=== PATIENT | female | born 1970 | race Two or more races ===

== ENCOUNTER 2021-12-07 14:53 | Outpatient (CLI) | payer MEDICAID | END 2021-12-07 23:59 | disposition home or self-care (01) | LOC: LAB 14:53 | PROVIDERS: ATTEND Specialist | DX: Z01.812 Encounter for preprocedural laboratory examination (principal); Z20.822 Contact with and (suspected) exposure to COVID-19 | CPT/HCPCS: C9803; U0003 ==

== ENCOUNTER 2021-12-13 05:06 | Inpatient (IN) | payer MEDICAID ==
[~2021-12-13] VITALS: Ht 157.5 cm; Wt 127.0 kg
[2021-12-13] VITALS (8 sets, daily range): BP systolic 139–155; BP diastolic 72–90
[~2021-12-13 05:06] MED LIST: ANESTHESIA TRAY IN PYXIS 1 EA TRAY MC ONE
--- NOTE | 2021-12-13 06:20 | NUR ---
RN ADMITTING NOTE PATIENT BEING ADMITTED FOR DAY SX R KNEE HIP ARTHROPLASTY WITH DR. FLORES. MRSA SWAB, URINE COLLECTED. ALL CONSENTS SIGNED. SX CHECKLIST DONE. PATIENT VICK TDOWN TO OR AT THISS TIME. BELONGINGS AT BEDSIDE.
[2021-12-13] MEDS ORDERED: ROCURONIUM BROMIDE 50 MG/5 ML ONE ×2 (06:31→07:40)
[2021-12-13] MEDS ORDERED: BUPIVACAINE 0.5 % PF 150 MG/30 ML VIAL ONE ×2 (06:31→06:34)
[2021-12-13] MEDS ORDERED: HYDROMORPHONE INJ 2 MG/ML DISP.SYRIN ONE (06:31)
[2021-12-13] MEDS ORDERED: POLYMYXIN B SULFATE 500,000 UNITS ONE (06:34)
[2021-12-13] MEDS ORDERED: TRANEXAMIC ACID 3,000 MG in SODIUM CHLORIDE IRRIG SOLUTION 70 ML IR ONE (07:00)
[2021-12-13] MEDS ORDERED: FENTANYL PF 100MCG/2ML AMPUL ONE (09:19)
[2021-12-13] MEDS ORDERED: DRONABINOL (2.5 MG) 2.5 MG CAPSULE PO ONE (09:33)
[2021-12-13] MEDS ORDERED: HYDROMORPHONE 1 MG/1 ML DISP.SYRIN ONE ×2 (09:44→10:03)
[2021-12-13] MEDS ORDERED: hydrALAZINE HCL IV 20 MG VIAL ONE ×2 (09:52→10:37)
[2021-12-13] MEDS ORDERED: ONDANSETRON HCL/PF 4 MG/2 ML VIAL IVP PRN (10:00)
[2021-12-13] MEDS ORDERED: DRONABINOL (2.5 MG) 2.5 MG CAPSULE PO SCH ×2 (10:00)
[2021-12-13] MEDS ORDERED: diphenhydrAMINE HCL 25 MG CAPSULE PO PRN (10:00)
[2021-12-13] MEDS ORDERED: ZOLPIDEM TARTRATE 5 MG TABLET PO PRN (10:00)
[2021-12-13] MEDS ORDERED: MAG HYDROX/AL HYDROX/SIMETH 30 ML UDC PO PRN (10:00)
[2021-12-13] MEDS ORDERED: BISACODYL SUPP (10 MG) 10 MG/SUPP.RECT SUPP.RECT RC PRN (10:00)
[2021-12-13] MEDS ORDERED: SENNOSIDES 8.6 MG TABLET PO PRN (10:00)
[2021-12-13] MEDS: HYDROMORPHONE 1 MG/1 ML DISP.SYRIN SQ PRN ×2 (11:16→22:57)
--- NOTE | 2021-12-13 11:30 | NUR ---
RN NOTES PATIENT BACK FROM RECOVERY ROOM. S/P RIGHT TOTAL KNEE ARTHROPLASTY. RIGHT KNEE/LEGNOTED WITH DRESSING C/D/I. AND WITH IMMOBILIZER. VITAL SIGNS TAKEN AND RECORDED. WITH C/O PAIN, DILAUDID GIVEN ORDERED. WILL CONTINUE TO MONITOR PATIENT.
[2021-12-13] MEDS: oxyCODONE IR immediate release 5 MG PO PRN (11:56)
[2021-12-13] MEDS ORDERED: KEY,NONCONTROL,TO KEEP IN PYXI 1 EA MC ONE (12:41)
[2021-12-13] MEDS: HYDROMORPHONE MDV 30 MG in IV NS 0.9% 15 ML, PCA TOTAL VOLUME 1 BAG IV PRN ×3 (13:43)
[2021-12-13] MEDS ORDERED: FAMO40TA7 PO (13:50)
[2021-12-13] MEDS ORDERED: CLON0.1T PO (13:50)
[2021-12-13] MEDS ORDERED: HYDR100T27 PO (13:50)
[2021-12-13] MEDS ORDERED: METO200T49 PO (13:50)
[2021-12-13] MEDS ORDERED: OXYC1TAB12 PO (13:50)
[2021-12-13] MEDS ORDERED: GABA300C PO (13:50)
[2021-12-13] MEDS ORDERED: ATOR10TA PO (13:58)
[2021-12-13] MEDS: ANCEF 1 GM/50 ML D5W IV SCH ×4 (16:41→23:07)
[2021-12-13] MEDS: DOCUSATE SODIUM 100 MG CAPSULE PO SCH (16:47)
--- NOTE | 2021-12-13 17:45 | NUR ---
RN NOTES PATIENT C/O UNABLE TO URINATE. BLADDER SCAN DONE, NOTED WITH >480ML URINE. MADE AWARE, WITH ORDER TO INSERT F/C FOR URINARY RETENTION. F/C INSERTED, PROCEDURE TOLERATED WELL. WAS ABLE TO REMOVE 500ML URINE OUTPUT.
--- NOTE | 2021-12-13 18:39 | NUR ---
RN CLOSING NOTES PATIENT RESTING IN BED. A/O X4, NO SIGNS OF ACUTE DISTRESS NOTED. STABLE ON ROOM AIR, SPO2 @94%, NO SOB NOTED, BREATHING EVEN AND UNLABORED. IV ACCESS ON LEFT HAND INTACT WITH D5 1/2 NS @125ML/HR RUNNING. ON INSOLE TOE SNIPPING MACHINE OPERATOR PUMP OF HYDROMORPHONE, PER PATIENT PAIN IS BETTER NOW. F/C INTACT DRAINING CLEAR YELLOW URINE. SAFETY MEASURE MAINTAINED. BED IN LOWEST AND LOCKED POSITION, SR UP X3, CALL LIGHT PLACED WITHIN EASY REACH. WILL ENDORSE TO NEXT SHIFT.
--- NOTE | 2021-12-13 19:15 | NUR ---
MS RN OPENING NOTES: RECEIVED PATIENT IN BED, AWAKE, A/O X4. AT THE BEDSIDE. NO S/S OF DISTRESS NOTED. NO COMPLAIN OF PAIN. CALL LIGHT WITHIN REACH. BED ALARM ON. BED IN LOWEST AND LOCKED POSITION. WITH HENDERSON CATHETER INTACT. WITH RIGHT KNEE IMMOBILIZER ON. POST OP DRESSING IS CLEAN, DRY AND INTACT. WITH GOOD CMS ON THE RIGHT EXTREMITY. TOLD RT FOR THE INCENTIVE SPIROMETER. WITH HVAC MANAGER NO CONTINUOUS, 0.3MG, 12 MINS LOCKOUT INTERVAL, 6MG 4 HOUR LIMIT.
[2021-12-13] MEDS: DRONABINOL (2.5 MG) 2.5 MG CAPSULE PO SCH (21:00)
[2021-12-13] MEDS ORDERED: FAMOTIDINE (20 MG) 20 MG TABLET PO SCH (21:00)
--- NOTE | 2021-12-13 21:00 | NUR ---
encouraged the patient to do the IS, and needs to do it q hour while awake, patient verbalized understanding.
[2021-12-13] MEDS: IV D5/0.45 NACL 1,000 ML IV PRN (21:27)
[2021-12-14] VITALS: BP 165/88
[2021-12-14] MEDS: oxyCODONE IR immediate release 5 MG PO PRN ×3 (01:37→17:55)
[2021-12-14] MEDS: HYDROMORPHONE 1 MG/1 ML DISP.SYRIN SQ PRN ×2 (02:49→08:35)
[2021-12-14] MEDS: IV D5/0.45 NACL 1,000 ML IV PRN ×2 (05:48→18:00)
[2021-12-14] MEDS: ASPIRIN 325 MG TABLET PO SCH (05:48)
[2021-12-14] MEDS ORDERED: RIVAROXABAN 10 MG TABLET PO SCH (06:00)
--- NOTE | 2021-12-14 06:04 | NUR ---
MS RN CLOSING NOTES: PATIENT IN BED, ASLEEP, EASILY AROUSABLE. NO S/S OF DISTRESS NOTED. STILL ON LINTER TENDER WITH SAME SETTING ORDERED. PAIN IS BEING MANAGED WELL THROUGHOUT THE SHIFT. CALL LIGHT WITHIN REACH. BED ALARM ON. BED IN LOWEST AND LOCKED POSITION. WITH RIGHT KNEE IMMOBILIZER ON. INCENTIVE SPIROMETER WAS INSTRUCTED BY THE RT LAST NIGHT, REINFORCED. REMINDED PATIENT TO DO IT Q 1HOUR WHILE AWAKE, PATIENT VERBALIZED UNDERSTANDING.
--- NOTE | 2021-12-14 07:30 | NUR ---
MS RN OPENING NOTES: RECEIVED PATIENT IN BED, AWAKE, A/O x 4. PATIENT IS ON ROOM AIR AND NO S/S OF SOB OR DISTRESS NOTED. IV ACCESS IN LEFT AC 20G PATENT AND FLUSHING WELL. STILL ON HIGH SCHOOL SPORTS COACH WITH SAME SETTING ORDERED. CALL LIGHT WITHIN REACH. BED ALARM ON. BED IN LOWEST AND LOCKED POSITION. RIGHT KNEE DRESSING, DRY AND INTACT WITH RIGHT KNEE IMMOBILIZER ON. WILL CONTINUE TO MONITOR FOR MARC.
[2021-12-14 08:00] VITALS: BP 191/91
[2021-12-14] MEDS: hydrALAZINE HCL 50 MG TABLET PO SCH ×3 (08:31→17:58)
[2021-12-14] MEDS: DOCUSATE SODIUM 100 MG CAPSULE PO SCH ×2 (08:33→18:00)
[2021-12-14] MEDS: FAMOTIDINE (20 MG) 20 MG TABLET PO SCH (08:33)
[2021-12-14] MEDS: GABAPENTIN 300 MG CAPSULE PO SCH ×3 (08:34→18:00)
[2021-12-14] MEDS: CLONIDINE HCL 0.1 MG TABLET PO SCH ×3 (08:34→17:58)
[2021-12-14] MEDS: METOPROLOL SUCCINATE 50 MG TAB.SR.24H PO SCH (08:34)
[2021-12-14] MEDS: DRONABINOL (2.5 MG) 2.5 MG CAPSULE PO SCH ×2 (08:34→22:09)
[2021-12-14] MEDS ORDERED: METOPROLOL SUCCINATE 200 MG PO SCH (09:00)
--- NOTE | 2021-12-14 13:15 | NUR ---
RN MS NOTES PT IS AWAKE IN BED. NURSING INTERVENTION INITIATED: ELEVATE RIGHT LOWER EXTREMITY AND ICED THE RIGHT KNEE. PATIENT TOLERATED IT WELL.
--- NOTE | 2021-12-14 13:18 | NUR ---
RN MS NOTES PT IN BED, OFFERED PAIN MEDICATION 2X, PT REFUSED FOR NOW, SAID THAT SHE WOULD LIKE TO CONTROL HER PAIN, BP CHECKED MANUALLY 180/100 HR 74, SCHEDULED BP MEDS GIVEN ORDERED, CALL LIGHT WITHIN REACH.
[2021-12-14 13:28] LABS: BASOPHILS % (AUTO) 0.5 % (0.0-2.0); HEMATOCRIT 29 % (33-45); HEMOGLOBIN 9.5 g/dL (11.5-14.8); LYMPHOCYTES # (AUTO) 1.6 K/uL (0.8-4.8); LYMPHOCYTES % (AUTO) 21.1 % (20.0-44.0); MEAN CORPUSCULAR HGB CONC 32 g/dl (31.0-36.0); MEAN CORPUSCULAR VOLUME 77 fL (82-100); MONOCYTES # (AUTO) 0.9 K/uL (0.1-1.30); MONOCYTES % (AUTO) 12.3 % (2.0-12.0); NEUTROPHILS # (AUTO) 4.9 K/uL (1.8-8.9); NEUTROPHILS % (AUTO) 66.1 % (43.0-81.0); PLATELET COUNT (AUTO) 268 K/uL (150-450); RED BLOOD CELL COUNT(AUTO) 3.79 MIL/uL (4.0-5.2); WHITE BLOOD COUNT (AUTO) 7.4 K/uL (4.3-11.0)
[2021-12-14] MEDS ORDERED: KEY,NONCONTROL,TO KEEP IN PYXI 1 EA MC ONE (13:47)
[2021-12-14] MEDS: HYDROMORPHONE MDV 30 MG in IV NS 0.9% 15 ML, PCA TOTAL VOLUME 1 BAG IV PRN ×3 (13:52)
[2021-12-14 14:13] LABS: CALCIUM, SERUM 8.4 mg/dL (8.5-10.1); CREATININE 1.3 mg/dL (0.6-1.3)
--- NOTE | 2021-12-14 15:02 | NUR ---
SS Consult: SS Consult requested for safe DC planning. The pt. is a 51-year-old [facility] female patient that was brought to the hospital for Right total knee Arthroplasty. Upon SS consult, the pt. is A&O x 4 and makes appropriate eye contact. The pt. appears well-groomed and presents with a euthymic mood and affect. Pt. denies current SI/HI and denies current hallucinations. Pt. has normal thought process and speech is WNL. Pt.s , Bulmaro Gore [phone] is currently at bedside. GENTRY gathered collateral information. GENTRY explored pt.s living situation. Per the pt., her and her resides at home [[id number] [facility] [address] EGNTRY explored pt.s drug & ETOH use. Pt. denies drug or alcohol use. GENTRY explored pt.s mental health Hx. Patient denies mental health diagnosis and states she is on anti anxierty medication. GENTRY explored if pt. received financial assistance. Per pt. sh receives [employer] work. Per, pt. she has a walker and a wheelchair at home and at this time will be dependent with her ADLs. GENTRY provided Anila with resources including caregiving, transportation, meals, DME etc. Pt. thanked GENTRY. Plan: Pt. stated she would like to go to an acute rehab unit. GENTRY discussed with CM who stated that the pt. has been referred to [facility]. GENTRY provided pt. with the following resources and she accepted them. ABUSE PREVENTION: ELDER ABUSE HOTLINE (06/03) ADULT PROTECTIVE SERVICES HOTLINE LONG-TERM CARE [facility] AREA ON AGING (HOTLINE) ADULT DAY HEALTH CARE CARE CENTERS: Private pay or Medi-ulises funded adult day care [place] [facility] , [facility] , [facility] , [facility] Adult Day Health Care , [facility] Adult Day Health Care , [facility] Adult Day[facility] Center , [facility] , [place] [facility] Adult Center , [place] ALZHEIMERS DISEASE/DEMENTIA: Alzheimers Association Helpline [facility] Chapter www.alz.org/[facility] Department of Aging www.lacity.org Family Caregiver [place] www.caregiver.org [place] Caregiver Resources Center/Family Support www.losangelesscr.org CANCER RESOURCES: [place] Cancer Society www.cancer.org Cancer Support Community www.CancerSupportVvsb.org: CancerCare www.cancercare.org [facility] Cancer Support Center www.[facility].org [facility] HEALTH ASSOCIATIONS: AARP www.aarp.org ALS Association (ask for Diane) www.als.org Filipino Diabetes Association www.diabetes.org Filipino Heart Association www.heart.org Filipino Lung Association www.lungusa.org Filipino Parkinson Disease Association www.apdaparkinson.org Filipino Ritchey , www.redcross.org Arthritis Foundation www.arthritis.org Crohns & Colitis Foundation of Filipino www.ccfa.org/chapters/herve National Multiple Sclerosis Society www.nationalmssociety.org Myasthenia Gravis Foundation www.myasthenia-ca.org National Stroke Association www.stroke.org CONSERVATORSHIP & GUARDIANSHIP: AARP Caterina Rivas Legal Services Center for Health Care Rights [facility] Information and Referral New Car Inspector Foundation [facility]: [facility] Bar Referral Service [facility] Legal Services Office of the Public Guardian [place] EYESIGHT DISORDER RESOURCES: Filipino Macular Degeneration Foundation [facility] www.[facility].org GRIEF AND BEREAVEMENT RESOURCES: The [facility]athering [facility] , [facility] THE HOPE Connection , [facility] , [place] HEARING DISORDER RESOURCES: [place] Telephone Access Program Deaf and Disabled Telecommunications Program www.ddtp.[facility].ca.gov HearRx Hearing Centers ([place]) Better Hearing Systems , [place] GLAD ([facility] Agency on Deafness) V/ TTY; Timber Spotter , [facility] Hearing [place] [facility] -low income hearing aid assistance www.[facility] boulevardfoundation.org Show Low Hearing Care , Rm HELP AT HOME CAREGIVER SUPPORT: In Home Support Services (Must have Medi-Ulises to be eligible) *Ask for a list of agencies that provide services to assist with care in the home. Local Senior Centers also have listings of care providers. HOME SAFETY MODIFICATIONS AND EQUIPMENT: Senior centers have additional referrals. [place] Housing and Community Investment Dept. Handyworker Program (low income) or Visit http://hcidla.[facility].org/jiq-kzeejx-il for more information National Seating and Mobility and/or ; Forever Active www.foreveractivemed.orat.io Stay Home Safe www.Stayhomesafe.com LIFE ALERT RESPONSE SYSTEM: Hello Mobile Inc. Services 243-320-3899 www. [employer] Life Alert 357-996-9248 www.Thryve Life Station 943-797-9553 www.Platialation.orat.io Safe Return 842-739-5150 www.alz.or/safereturn Cell Phones for Seniors www.[employer] MEALS AND FOOD PROGRAMS: Pallavi Meals on Wheels [phone] [place] Meals on Wheels [phone] [facility] [phone] [place] to the Homebound [phone] [place] to the Homebound [phone] [facility] to the Homebound [phone] [facility] to the Homebound [phone] [facility] Hospital[facility] [phone] [facility] [phone] ONE Generation [phone] [facility] [phone] [facility] [phone] Meals on Wheels [phone] For all ages: $6.85/ meal w side. Delivered M-F from 10 am-1pm. Application and payment is done over the phone. Frozen meals available for weekends. Emergency Food Coalition [phone] [facility] Pneumatic [place] [phone] [facility] [phone] [facility]- Brown bag lunches [phone] [facility] [phone] MEAL/GROCERY DELIVERY PROGRAMS: Holly Senior Gourmet Meals [phone]- [facility] [phone]- [facility] Magic Kitchen [phone] Moms Meals [phone] (ask Marquez for Discount Select grocery stores may provide delivery. MEDICAL INSURANCE SUPPORT SERVICES: Center for Health Care Rights [phone] Health Insurance Counseling/Advocacy Programs (HICAP)-Must have Medicare. Offers counseling for Medi-Ulises eligibility [phone] [facility] Pneumatic [place] [phone] www.[facility].ca.gov Medicare [phone] www.socialsecurity.org Social Security [phone] SENIOR ACTIVITY PROGRAMS: *Contact a local senior center, adult school, recreation facility or community [facility] for education, fitness, recreation, and social programs. Aquatic Therapy and Adapted Exercise programs through [facility] [phone] Encore at [facility] [phone] www.[facility]/encore [facility]- Senior Friends [phone] [place] Senior Programs [phone] www.oasisnet.org Suddenly 65 www.qcnyozas97.orat.io SENIOR CENTERS: [facility] [phone] [facility] [phone] [facility] [phone] [facility] [phone] [facility] [phone] [facility] [phone] [facility] [phone] [facility] [phone] One Generation, [facility] [phone] [facility] [phone] [facility] [phone] [facility] [phone] [facility] [phone] TRANSPORTATION: Local [facility] Centers may have applications for transportation programs and additional resources. ACCESS Services [phone] Transportation for seniors and disabled persons 7 days a week requiring 254 hr. advance reservation. Must apply and register for program adam eligible. CITY RIDE [phone] or [phone] Transportation for seniors and persons with ADA card/metro disabled card in the [facility]. M-F only. Must register for services. ONE GENERATION [phone] Serves 65 years + in conjunction with city ride program. Must be registered with both programs. A to B Transport [phone] Provides wheelchair/gurney van service. Adult Medical Transport [phone] Accepts [facility] with prior authorization. Care Van [phone] Provides wheelchair Transport. [facility] Wide Transportation [phone] Provides gurney service Gentle Care [phone] Gurney Transport. All Town Transportation [phone] wheelchair & gurney transport D Transportation [phone] wheelchair & gurney transport [place] Non-Emergency Transport [phone] wheelchair & gurney transport [facility] Living [place] [phone] Short Term Transportation primarily for adults with disabilities on social security income. Nominal fee may apply and a reservation is required. City Cab [phone] or [phone] [facility] [phone] [place] [address] Referral Services -[phone] For additional programs & services VETERANS RESOURCES: Submissions for Aid and Attendance should be done directly to Federal VA office locatd at : [address] [phone] [phone] National Caregiver Support Line [phone] Ulises Daniel Veterans Services Field Office [phone] [place] Department of Affairs [phone] Pension Information [phone]
[2021-12-14] MEDS: ATORVASTATIN 10 MG TABLET PO SCH (17:58)
[2021-12-14] MEDS: RIVAROXABAN 10 MG TABLET PO SCH (17:59)
--- NOTE | 2021-12-14 18:54 | NUR ---
MS RN CLOSING NOTES: PATIENT IN BED, AWAKE, A/O x 4. PATIENT IS ON ROOM AIR AND NO S/S OF SOB OR DISTRESS NOTED. IV ACCESS IN LEFT AC 20G PATENT AND FLUSHING WELL. STILL ON CONTACT OFFICER WITH SAME SETTING ORDERED. CALL LIGHT WITHIN REACH. BED ALARM ON. BED IN LOWEST AND LOCKED POSITION. RIGHT KNEE DRESSING, DRY AND INTACT WITH RIGHT KNEE IMMOBILIZER ON. WILL ENDORSE TO ONCOMING FOR MARC.
--- NOTE | 2021-12-14 19:10 | NUR ---
MS/RN OPENING NOTE RECEIVED PATIENT SLEEPING IN BED. ALERT AND ORIENTED X 4. ABLE TO MAKE NEEDS KNOWN. DENIES PAIN AT THIS TIME. CONTINUES ON ROOM AIR WITH NO S/SX OF RESPIRATORY DISTRESS NOTED. IV ACCESS TO LEFT HAND #20G INTACT AND PATENT. CONTINUES ON IVF D51/2NS @ 125ML/HR. CONTINUES ON WICKER MOLDED CANDLES PUMP. DRESSING TO RIGHT KNEE SURGICAL SITE IS CLEAN, DRY AND INTACT. HENDERSON CATHETER IN PLACE DRAINING CLEAR, YELLOW URINE TO GRAVITY. CALL LIGHT WITHIN REACH. ASPIRATION, FALL AND SAFETY PRECAUTIONS MAINTAINED. WILL CONTINUE TO MONITOR.
[2021-12-14 20:00] VITALS: BP 176/89
[2021-12-15] MEDS: oxyCODONE IR immediate release 5 MG PO PRN ×4 (01:23→16:42)
--- NOTE | 2021-12-15 06:30 | NUR ---
MS/RN CLOSING NOTE PATIENT CURRENTLY SLEEPING IN BED. ALERT AND ORIENTED X 4. ABLE TO MAKE NEEDS KNOWN. DENIES PAIN AT THIS TIME. CONTINUES ON ROOM AIR WITH NO S/SX OF RESPIRATORY DISTRESS NOTED. IV ACCESS TO LEFT HAND #20G INTACT AND PATENT. CONTINUES ON IVF D 5 1/2NS @ 125ML/HR. CONTINUES ON DOOR FITTER PUMP. DRESSING TO RIGHT KNEE SURGICAL SITE IS CLEAN, DRY AND INTACT. HENDERSON CATHETER IN PLACE DRAINING CLEAR, YELLOW URINE TO GRAVITY. CALL LIGHT WITHIN REACH. ASPIRATION, FALL AND SAFETY PRECAUTIONS MAINTAINED. WILL ENDORSE PLAN OF CARE TO ONCOMING SHIFT.
[2021-12-15 06:42] LABS: BASOPHILS # (AUTO) 0.1 K/uL (0.0-0.2); BASOPHILS % (AUTO) 0.7 % (0.0-2.0); EOSINOPHILS % (AUTO) 0.1 % (0.0-6.0); HEMATOCRIT 26 % (33-45); HEMOGLOBIN 8.5 g/dL (11.5-14.8); LYMPHOCYTES # (AUTO) 1.5 K/uL (0.8-4.8); LYMPHOCYTES % (AUTO) 18.9 % (20.0-44.0); MEAN CORPUSCULAR HGB CONC 33 g/dl (31.0-36.0); MEAN CORPUSCULAR VOLUME 78 fL (82-100); MONOCYTES # (AUTO) 0.9 K/uL (0.1-1.30); MONOCYTES % (AUTO) 11.1 % (2.0-12.0); NEUTROPHILS # (AUTO) 5.3 K/uL (1.8-8.9); NEUTROPHILS % (AUTO) 69.2 % (43.0-81.0); PLATELET COUNT (AUTO) 234 K/uL (150-450); RED BLOOD CELL COUNT(AUTO) 3.35 MIL/uL (4.0-5.2); WHITE BLOOD COUNT (AUTO) 7.7 K/uL (4.3-11.0)
[2021-12-15 07:07] LABS: CALCIUM, SERUM 8.7 mg/dL (8.5-10.1); CREATININE 1.2 mg/dL (0.6-1.3); MAGNESIUM 1.9 mg/dL (1.8-2.4); PHOSPHORUS 3.2 mg/dL (2.5-4.9); POTASSIUM 4.2 mmol/L (3.5-5.1)
--- NOTE | 2021-12-15 07:30 | NUR ---
MS/RN OPENING NOTE RECEIVED PATIENT AWAKE IN BED. ALERT AND ORIENTED X 4. ABLE TO MAKE NEEDS KNOWN. DENIES PAIN AT THIS TIME. CONTINUES ON ROOM AIR WITH NO S/SX OF RESPIRATORY DISTRESS NOTED. IV ACCESS TO LEFT HAND #20G INTACT AND PATENT. CONTINUES ON IVF D 5 1/2NS @ 125ML/HR. CONTINUES ON SILK TOP HAT BODY MAKER PUMP. DRESSING TO RIGHT KNEE SURGICAL SITE IS CLEAN, DRY AND INTACT. HENDERSON CATHETER IN PLACE DRAINING CLEAR, YELLOW URINE TO GRAVITY. CALL LIGHT WITHIN REACH. ASPIRATION, FALL AND SAFETY PRECAUTIONS MAINTAINED. WILL CONTINUE TO MONITOR FOR MARC.
[2021-12-15] MEDS: METOPROLOL SUCCINATE 50 MG TAB.SR.24H PO SCH (08:24)
[2021-12-15] MEDS: FAMOTIDINE (20 MG) 20 MG TABLET PO SCH (08:25)
[2021-12-15] MEDS: hydrALAZINE HCL 50 MG TABLET PO SCH ×3 (08:25→16:43)
[2021-12-15] MEDS: CLONIDINE HCL 0.1 MG TABLET PO SCH ×3 (08:25→16:44)
[2021-12-15] MEDS: GABAPENTIN 300 MG CAPSULE PO SCH ×3 (08:26→16:44)
[2021-12-15] MEDS: DOCUSATE SODIUM 100 MG CAPSULE PO SCH ×2 (08:26→16:44)
[2021-12-15] MEDS: DRONABINOL (2.5 MG) 2.5 MG CAPSULE PO SCH ×2 (08:32→21:11)
[2021-12-15] MEDS: ASPIRIN 325 MG TABLET PO SCH (09:00)
[2021-12-15] MEDS: HYDROMORPHONE 1 MG/1 ML DISP.SYRIN SQ PRN (09:48)
[2021-12-15] MEDS: RIVAROXABAN 10 MG TABLET PO SCH (16:51)
[2021-12-15] MEDS: ATORVASTATIN 10 MG TABLET PO SCH (17:18)
--- NOTE | 2021-12-15 18:33 | NUR ---
MS/RN CLOSING NOTE PATIENT AWAKE IN BED. ALERT AND ORIENTED X 4. ABLE TO MAKE NEEDS KNOWN. PATIENT COMPLAINED 9/10 PAIN ALMOST THE ENTIRE SHIFT, AND PAIN MEDICATIONS ADMINISTERED REQUESTED. CONTINUES ON ROOM AIR WITH NO S/SX OF RESPIRATORY DISTRESS NOTED. IV ACCESS TO RIGHT HAND #20G INTACT AND PATENT. FLUIDS ARE DISCONTINUED. CREDIT RISK OFFICER PUMP IS STILL ON GOING, BUT IT WILL BE DISCONTINUED AFTER THIS LAST BAG PER DR. MARINELLI'S ORDERS. DRESSING TO RIGHT KNEE SURGICAL SITE IS CLEAN, DRY AND INTACT. HENDERSON CATHETER IN PLACE DRAINING CLEAR, YELLOW URINE TO GRAVITY. CALL LIGHT WITHIN REACH. ASPIRATION, FALL AND SAFETY PRECAUTIONS MAINTAINED. WILL ENDORSE TO ONCOMING SHIFT FOR MARC.
--- NOTE | 2021-12-15 19:06 | NUR ---
BARREL BRIDGE ASSEMBLER NOTES PT IN BED, UNABLE TO KEEP STILL, KEPT REMOVING TELE MONITOR, ASSISTED TO BATHROOM, SAFETY PRECAUTIONS OBSERVED, BED ALARM ON. Addendum: 12/15/21 at 1914 by ANSHUL BROWN RN PLS DISREGARD ABOVE NOTE, IT IS FOR A DIFFERENT PATIENT.
--- NOTE | 2021-12-15 19:15 | NUR ---
MS RN OPENING NOTES: RECEIVED PATIENT IN BED, ASLEEP, AT THE BEDSIDE. HOB ELEVATED. NO S/S OF DISTRESS NOTED. WITH O2 AT 2L/MIN NASAL CANNULA. CALL LIGHT WITHIN REACH. BED ALARM ON. BED IN LOWEST AND LOCKED POSITION. PER REPORT FROM THE DAYSHIFT RN, PATIENT HAD PT AND CPM TODAY. STILL WITH COMMUNITY SERVICE DIRECTOR RUNNING, TO BE FINISHED THE CURRENT BAG. WITH HENDERSON CATHETER INTACT.ICE PACK ON THE RIGHT KNEE.
[2021-12-15 20:00] VITALS: BP 124/72
--- NOTE | 2021-12-15 21:00 | NUR ---
ACCORDING TO THE PATIENT, RIGHT KNEE POST OP DRESSING WAS CHANGED BY . PLACED ICE PACK TO THE RIGHT KNEE.
[2021-12-15] MEDS: ACETAMINOPHEN 325 MG TABLET PO PRN (21:11)
--- NOTE | 2021-12-15 23:41 | NUR ---
patient just woke up and encouraged to do the incentive spirometer, patient did.
[2021-12-16] MEDS: oxyCODONE IR immediate release 5 MG PO PRN ×5 (02:21→23:16)
--- NOTE | 2021-12-16 07:27 | NUR ---
MS RN OPENING NOTES: RECEIVED PATIENT IN BED, AWAKE, A/O X4. ABLE TO MAKE NEEDS KNOWN. ON O2 AT 2L/MIN NASAL CANNULA. BREATHING EVEN AND UNLABORED. NO S/S OF RESPIRATORY DISTRESS NOTED. R HAND G#22 IV ACCESS INTACT AND PATENT. HENDERSON CATH IN PLACE, DRAINING WELL WITH CLEAR YELLOW URINE. SAFETY MEASURES IN PLACE: BED IN LOWEST AND LOCKED POSITION, BED ALARM ON, HOB ELEVATED, BED SIDE RAILS UPX2, CALL LIGHT WITHIN REACH. WILL CONTINUE TO MONITOR PT AND WITH PLAN OF CARE.
[2021-12-16] MEDS: HYDROMORPHONE 1 MG/1 ML DISP.SYRIN SQ PRN (08:23)
[2021-12-16] MEDS: FAMOTIDINE (20 MG) 20 MG TABLET PO SCH (09:16)
[2021-12-16] MEDS: ACETAMINOPHEN 325 MG TABLET PO PRN (09:16)
[2021-12-16] MEDS: GABAPENTIN 300 MG CAPSULE PO SCH ×3 (09:16→17:36)
[2021-12-16] MEDS: DOCUSATE SODIUM 100 MG CAPSULE PO SCH ×2 (09:17→17:37)
[2021-12-16] MEDS: METOPROLOL SUCCINATE 50 MG TAB.SR.24H PO SCH (09:17)
[2021-12-16] MEDS: hydrALAZINE HCL 50 MG TABLET PO SCH ×3 (09:18→17:35)
[2021-12-16] MEDS: CLONIDINE HCL 0.1 MG TABLET PO SCH ×3 (09:18→17:36)
[2021-12-16] MEDS: DRONABINOL (2.5 MG) 2.5 MG CAPSULE PO SCH ×2 (09:23→22:42)
--- NOTE | 2021-12-16 10:52 | NUR ---
RN NOTE CLARIFIED DILAUDID MEDICATION IN METEOROLOGICAL AIDE PUMP WITH DR. MARINELLI WITH ORDERS TO D/C METEOROLOGICAL AIDE PUMP NOW. D/C'D METEOROLOGICAL AIDE PUMP WITH WASTE OF 24ML. WASTE WITNESSED BY LINDA MALIK.
[2021-12-16 12:51] LABS: CALCIUM, SERUM 8.6 mg/dL (8.5-10.1); CREATININE 1.4 mg/dL (0.6-1.3); POTASSIUM 3.9 mmol/L (3.5-5.1)
[2021-12-16] MEDS ORDERED: HYDROMORPHONE 1 MG/1 ML DISP.SYRIN IV PRN (13:00)
[2021-12-16 13:58] LABS: BASOPHILS # (AUTO) 0.1 K/uL (0.0-0.2); EOSINOPHILS % (AUTO) 1.3 % (0.0-6.0); HEMATOCRIT 26 % (33-45); HEMOGLOBIN 8.4 g/dL (11.5-14.8); MEAN CORPUSCULAR HGB CONC 33 g/dl (31.0-36.0); MEAN CORPUSCULAR VOLUME 77 fL (82-100); MONOCYTES % (AUTO) 11.7 % (2.0-12.0); NEUTROPHILS # (AUTO) 5.1 K/uL (1.8-8.9); PLATELET COUNT (AUTO) 274 K/uL (150-450); RED BLOOD CELL COUNT(AUTO) 3.31 MIL/uL (4.0-5.2); WHITE BLOOD COUNT (AUTO) 8.2 K/uL (4.3-11.0)
[2021-12-16] MEDS: ATORVASTATIN 10 MG TABLET PO SCH (17:35)
[2021-12-16] MEDS: RIVAROXABAN 10 MG TABLET PO SCH (17:37)
--- NOTE | 2021-12-16 18:53 | NUR ---
MS RN CLOSING NOTES: PATIENT IN BED, AWAKE, A/O X4. ABLE TO MAKE NEEDS KNOWN. ON O2 AT 2L/MIN NASAL CANNULA. BREATHING EVEN AND UNLABORED. NO S/S OF RESPIRATORY DISTRESS NOTED. R HAND G#22 IV ACCESS INTACT AND PATENT. HENDERSON CATH IN PLACE, DRAINING WELL WITH 600 ML OUTPUT, CLEAR YELLOW URINE. ALL NEEDS ATTENDED. SAFETY MEASURES IN PLACE: BED IN LOWEST AND LOCKED POSITION, BED ALARM ON, HOB ELEVATED, BED SIDE RAILS UPX2, CALL LIGHT WITHIN REACH. WILL ENDORSED TO NIGHT NURSE.
[2021-12-16 20:45] VITALS: BP 117/77
--- NOTE | 2021-12-16 21:03 | NUR ---
REPORT Care endorsed to LINDA Johnson for continuity of care. Patient VS remains stable, in no acute distress. Maintained fall precaution.
--- NOTE | 2021-12-16 21:20 | NUR ---
MS RN OPENING NOTE RECEIVED PATIENT IN BED; AWAKE, ALERT AND ORIENTED X4. ON O2 INHALATION VIA NASAL CANNULA AT 2LPM, TOLERATING WELL. ABLE TO MAKE NEEDS KNOWN. WITH IV ACCESS ON RIGHT HAND G#22; INTACT, PATENT AND SALINE LOCKED. DRESSING TO RIGHT KNEE SURGICAL SITE IS CLEAN, DRY AND INTACT. WITH HENDERSON CATHETER IN PLACE ATTACHED TO UROBAG DRAINING TO CLEAR YELLOW URINE. SAFETY MEASURES IMPLEMENTED: CALL BUTTON AND TABLE WITHIN EASY REACH, SIDE RAILS UP X2, BED IN LOWEST LOCKED POSITION. WILL CONTINUE TO MONITOR.
--- NOTE | 2021-12-16 23:20 | NUR ---
MS RN NOTES COMPLAINED OF RIGHT KNEE PAIN WITH SCALE OF 5/10, OXYCODONE IR 30 MG 6 CAP GIVEN PO ORDERED.
[2021-12-17] MEDS: oxyCODONE IR immediate release 5 MG PO PRN ×5 (03:49→21:03)
[2021-12-17 06:11] LABS: CALCIUM, SERUM 8.5 mg/dL (8.5-10.1); CREATININE 1.3 mg/dL (0.6-1.3); MAGNESIUM 2.1 mg/dL (1.8-2.4); PHOSPHORUS 3.2 mg/dL (2.5-4.9); POTASSIUM 3.8 mmol/L (3.5-5.1)
[2021-12-17 06:48] LABS: BASOPHILS % (AUTO) 0.6 % (0.0-2.0); EOSINOPHILS % (AUTO) 2.7 % (0.0-6.0); HEMATOCRIT 24 % (33-45); HEMOGLOBIN 7.9 g/dL (11.5-14.8); LYMPHOCYTES # (AUTO) 1.3 K/uL (0.8-4.8); LYMPHOCYTES % (AUTO) 19.7 % (20.0-44.0); MEAN CORPUSCULAR HGB CONC 33 g/dl (31.0-36.0); MEAN CORPUSCULAR VOLUME 77 fL (82-100); MONOCYTES # (AUTO) 0.9 K/uL (0.1-1.30); MONOCYTES % (AUTO) 13.6 % (2.0-12.0); NEUTROPHILS # (AUTO) 4.2 K/uL (1.8-8.9); NEUTROPHILS % (AUTO) 63.4 % (43.0-81.0); PLATELET COUNT (AUTO) 270 K/uL (150-450); RED BLOOD CELL COUNT(AUTO) 3.06 MIL/uL (4.0-5.2); WHITE BLOOD COUNT (AUTO) 6.7 K/uL (4.3-11.0)
--- NOTE | 2021-12-17 06:58 | NUR ---
MS RN CLOSING NOTE PATIENT IN BED; AWAKE, A/O X4. ON ROOM AIR, TOLERATING WELL. WITH IV ACCESS ON RIGHT HAND G#22; INTACT AND SALINE LOCKED. DRESSING TO RIGHT KNEE SURGICAL SITE IS CLEAN, DRY AND INTACT. WITH HENDERSON CATHETER IN PLACE ATTACHED TO UROBAG DRAINING TO CLEAR YELLOW URINE. SAFETY MEASURES IN PLACE. ENDORSED TO MORNING NURSE FOR CONTINUITY OF CARE.
--- NOTE | 2021-12-17 07:30 | NUR ---
MS RN OPENING NOTE PATIENT IN BED; AWAKE, A/O X4. ON ROOM AIR, TOLERATING WELL. WITH IV ACCESS ON RIGHT HAND G#22; INTACT AND SALINE LOCKED. DRESSING TO RIGHT KNEE SURGICAL SITE IS CLEAN, DRY AND INTACT. WITH HENDERSON CATHETER IN PLACE ATTACHED TO UROBAG DRAINING TO CLEAR YELLOW URINE. SAFETY MEASURES IN PLACE. WILL TO CONTINUE TO MONITOR FOR CONTINUITY OF CARE.
[2021-12-17 08:00] VITALS: BP 139/81
[2021-12-17] MEDS: METOPROLOL SUCCINATE 50 MG TAB.SR.24H PO SCH (08:47)
[2021-12-17] MEDS: FAMOTIDINE (20 MG) 20 MG TABLET PO SCH (08:47)
[2021-12-17] MEDS: GABAPENTIN 300 MG CAPSULE PO SCH ×3 (08:47→17:09)
[2021-12-17] MEDS: CLONIDINE HCL 0.1 MG TABLET PO SCH ×3 (08:48→17:11)
[2021-12-17] MEDS: DRONABINOL (2.5 MG) 2.5 MG CAPSULE PO SCH ×2 (08:48→21:05)
[2021-12-17] MEDS: hydrALAZINE HCL 50 MG TABLET PO SCH ×3 (08:49→17:10)
[2021-12-17] MEDS: DOCUSATE SODIUM 100 MG CAPSULE PO SCH ×2 (08:49→17:12)
[2021-12-17 13:15] VITALS: BP 126/62
[2021-12-17] MEDS: SENNOSIDES/DOCUSATE SODIUM 1 TAB TABLET PO SCH (13:20)
[2021-12-17 16:00] VITALS: BP 114/69
[2021-12-17] MEDS: ATORVASTATIN 10 MG TABLET PO SCH (17:11)
[2021-12-17] MEDS: RIVAROXABAN 10 MG TABLET PO SCH (17:11)
--- NOTE | 2021-12-17 18:48 | NUR ---
MS RN CLOSING NOTE PATIENT IN BED; AWAKE, A/O X4. ON ROOM AIR, TOLERATING WELL. WITH IV ACCESS ON RIGHT HAND G#22; INTACT AND SALINE LOCKED. DRESSING TO RIGHT KNEE SURGICAL SITE IS CLEAN, DRY AND INTACT. WITH HENDERSON CATHETER IN PLACE ATTACHED TO UROBAG DRAINING TO CLEAR YELLOW URINE. SAFETY MEASURES IN PLACE. WILL INDORSE TO ONCOMING SHIFT FOR CONTINUITY OF CARE.
--- NOTE | 2021-12-17 19:20 | NUR ---
MS RN OPENING NOTE RECEIVED PATIENT IN BED; AWAKE, ALERT AND ORIENTED X4. ON ROOM AIR, TOLERATING WELL. BREATHING EVENLY AND NONLABORED. ABLE TO MAKE NEEDS KNOWN. WITH IV ACCESS ON RIGHT HAND G#22; INTACT, PATENT AND SALINE LOCKED. WITH DRESSING TO RIGHT KNEE, SURGICAL SITE IS CLEAN, DRY AND INTACT. WITH HENDERSON CATHETER IN PLACE ATTACHED TO UROBAG DRAINING TO CLEAR YELLOW URINE. SAFETY MEASURES IMPLEMENTED: CALL BUTTON AND TABLE WITHIN EASY REACH, SIDE RAILS UP X2, BED IN LOWEST LOCKED POSITION. WILL CONTINUE TO MONITOR.
[2021-12-17 20:00] VITALS: BP 113/61
[2021-12-17 20:15] VITALS: BP 113/61
[2021-12-18] MEDS: oxyCODONE IR immediate release 5 MG PO PRN ×5 (02:45→21:25)
[2021-12-18 06:14] LABS: BASOPHILS # (AUTO) 0.1 K/uL (0.0-0.2); BASOPHILS % (AUTO) 0.9 % (0.0-2.0); HEMATOCRIT 24 % (33-45); HEMOGLOBIN 7.6 g/dL (11.5-14.8); LYMPHOCYTES # (AUTO) 1.5 K/uL (0.8-4.8); LYMPHOCYTES % (AUTO) 25.3 % (20.0-44.0); MEAN CORPUSCULAR HGB CONC 33 g/dl (31.0-36.0); MEAN CORPUSCULAR VOLUME 77 fL (82-100); MONOCYTES % (AUTO) 16.8 % (2.0-12.0); NEUTROPHILS # (AUTO) 3.3 K/uL (1.8-8.9); PLATELET COUNT (AUTO) 308 K/uL (150-450); RED BLOOD CELL COUNT(AUTO) 3.03 MIL/uL (4.0-5.2); WHITE BLOOD COUNT (AUTO) 6.1 K/uL (4.3-11.0)
[2021-12-18 06:28] LABS: CALCIUM, SERUM 8.4 mg/dL (8.5-10.1); CREATININE 1.3 mg/dL (0.6-1.3); MAGNESIUM 2.1 mg/dL (1.8-2.4); PHOSPHORUS 3.9 mg/dL (2.5-4.9); POTASSIUM 4.1 mmol/L (3.5-5.1)
--- NOTE | 2021-12-18 07:00 | NUR ---
MS RN CLOSING NOTE PATIENT IN BED; AWAKE, ALERT AND ORIENTED X4. AT BEDSIDE. ON ROOM AIR, TOLERATING WELL. BREATHING EVENLY AND NONLABORED. ABLE TO MAKE NEEDS KNOWN. NO IV ACCESS AT THIS TIME. WITH DRESSING TO RIGHT KNEE, SURGICAL SITE IS CLEAN, DRY AND INTACT. NO COMPLAINTS OF PAIN AT THIS TIME. IV ACCESS ON LEFT HAND G#22. PATENT AND FLUSHES WELL. SAFETY MEASURES IMPLEMENTED: CALL BUTTON AND TABLE WITHIN EASY REACH, SIDE RAILS UP X2, BED IN LOWEST LOCKED POSITION. ALL NEEDS ATTENDED AND MET. DUE MEDS GIVEN ORDERED. PAIN MANAGED BY PAIN MEDICATION DURING THE SHIFT. WILL ENDORSE TO ONCOMING SHIFT FOR MARC.
--- NOTE | 2021-12-18 07:20 | NUR ---
MS RN CLOSING NOTES PATIENT IN BED; AWAKE, A/O X4. ON ROOM AIR, TOLERATING WELL. WITH IV ACCESS ON RIGHT HAND G#22; INTACT AND SALINE LOCKED. DRESSING TO RIGHT KNEE SURGICAL SITE IS CLEAN, DRY AND INTACT. WITH HENDERSON CATHETER IN PLACE ATTACHED TO UROBAG DRAINING TO CLEAR YELLOW URINE. SAFETY MEASURES IN PLACE. ENDORSED TO MORNING NURSE FOR CONTINUITY OF CARE.
--- NOTE | 2021-12-18 07:30 | NUR ---
MS RN OPENING NOTE RECEIVED PATIENT IN BED; AWAKE, ALERT AND ORIENTED X4. ON ROOM AIR, TOLERATING WELL. BREATHING EVENLY AND NONLABORED. ABLE TO MAKE NEEDS KNOWN. NO IV ACCESS AT THIS TIME. WITH DRESSING TO RIGHT KNEE, SURGICAL SITE IS CLEAN, DRY AND INTACT. WITH HENDERSON CATHETER IN PLACE ATTACHED TO URINE BAG DRAINING TO CLEAR YELLOW URINE. NO COMPLAINTS OF PAIN AT THIS TIME. SAFETY MEASURES IMPLEMENTED: CALL BUTTON AND TABLE WITHIN EASY REACH, SIDE RAILS UP X2, BED IN LOWEST LOCKED POSITION. WILL CONTINUE TO MONITOR PATIENT ACCORDINGLY.
[2021-12-18 08:00] VITALS: BP 141/65
[2021-12-18] MEDS: GABAPENTIN 300 MG CAPSULE PO SCH ×3 (08:46→16:26)
[2021-12-18] MEDS: DOCUSATE SODIUM 100 MG CAPSULE PO SCH ×2 (08:47→16:26)
[2021-12-18] MEDS: DRONABINOL (2.5 MG) 2.5 MG CAPSULE PO SCH ×2 (08:47→21:14)
[2021-12-18] MEDS: FAMOTIDINE (20 MG) 20 MG TABLET PO SCH (08:47)
[2021-12-18] MEDS: SENNOSIDES/DOCUSATE SODIUM 1 TAB TABLET PO SCH (08:47)
[2021-12-18] MEDS: METOPROLOL SUCCINATE 50 MG TAB.SR.24H PO SCH (08:48)
[2021-12-18] MEDS: CLONIDINE HCL 0.1 MG TABLET PO SCH ×3 (08:48→16:28)
[2021-12-18] MEDS: hydrALAZINE HCL 50 MG TABLET PO SCH ×3 (08:49→16:28)
[2021-12-18 09:26] LABS: EOSINOPHILS % (MANUAL) 1 % (0-4); LYMPHOCYTES % (MANUAL) 26 % (16-48); MONOCYTES % (MANUAL) 14 % (0-11.0); NEUTROPHILS % (MANUAL) 59 (42-76)
[2021-12-18] MEDS: ACETAMINOPHEN 325 MG TABLET PO PRN (10:10)
--- NOTE | 2021-12-18 10:39 | NUR ---
RN NOTES FOLLOWED UP DUPLEX VENOUS ULTRASOUND OF RLE- NO ANSWER. CALLED SEVERAL TIMES NO ANSWER. WILL CONTINUE TO FOLLOW UP.
--- NOTE | 2021-12-18 14:28 | NUR ---
RN NOTES HENDERSON CATHETER REMOVED ORDERED.
[2021-12-18 16:00] VITALS: BP 135/63
[2021-12-18] MEDS: RIVAROXABAN 10 MG TABLET PO SCH (16:27)
[2021-12-18] MEDS: ATORVASTATIN 10 MG TABLET PO SCH (17:11)
--- NOTE | 2021-12-18 18:35 | NUR ---
MS RN CLOSING NOTE PATIENT IN BED; AWAKE, ALERT AND ORIENTED X4. ON ROOM AIR, TOLERATING WELL. BREATHING EVENLY AND NONLABORED. ABLE TO MAKE NEEDS KNOWN. NO IV ACCESS AT THIS TIME. WITH DRESSING TO RIGHT KNEE, SURGICAL SITE IS CLEAN, DRY AND INTACT. WITH HENDERSON CATHETER IN PLACE ATTACHED TO URINE BAG DRAINING TO CLEAR YELLOW URINE. NO COMPLAINTS OF PAIN AT THIS TIME. SAFETY MEASURES IMPLEMENTED: CALL BUTTON AND TABLE WITHIN EASY REACH, SIDE RAILS UP X2, BED IN LOWEST LOCKED POSITION. ALL NEEDS ATTENDED AND MET. DUE MEDS GIVEN ORDERED. PAIN MANAGED BY PAIN MEDICATION DURING THE SHIFT. WILL ENDORSE TO ONCOMING SHIFT FOR MARC. Addendum: 12/18/21 at 1941 by VANDANA KRISHNAMURTHY RN WRONG DOCUMENTATION: PLEASE DISREGARD ABOVE NOTES.
[2021-12-18 20:00] VITALS: BP 102/52
--- NOTE | 2021-12-18 20:30 | NUR ---
MS RN NOTE PATIENT STATES SHE FEELS THE URGE TO URINATE BUT IS UNABLE TO. HENDERSON CATH WAS REMOVED AT 2:30 PM TODAY. BLADDER SCAN PERFORMED SHOWING 580 ML OF URINE RETENTION. NOTIFIED DOOR ATTENDANT MD WITH ORDER FOR ONE TIME STRAIGHT CATH
--- NOTE | 2021-12-18 20:57 | NUR ---
MS RN NOTE STRAIGHT CATH PERFORMED, 600 ML OF URINE REMOVED. WILL CONTINUE TO MONITOR PATIENT
--- NOTE | 2021-12-18 21:30 | NUR ---
MS RN NOTE PATIENT C/O RIGHT KNEE PAIN. OXY IR 30 MG PO GIVEN ORDERED. WILL CONTINUE TO MONITOR PATIENT
[2021-12-19] MEDS: oxyCODONE IR immediate release 5 MG PO PRN ×5 (01:21→21:53)
--- NOTE | 2021-12-19 01:25 | NUR ---
MS RN NOTE PATIENT C/O RIGHT KNEE PAIN. OXY IR 30 MG PO GIVEN ORDERED. WILL CONTINUE TO MONITOR PATIENT
--- NOTE | 2021-12-19 04:40 | NUR ---
MS RN NOTE PATIENT C/O RIGHT KNEE PAIN. OXY IR 30 MG PO GIVEN ORDERED. WILL CONTINUE TO MONITOR PATIENT
--- NOTE | 2021-12-19 05:15 | NUR ---
MS RN NOTE PATIENT STILL FEELS THE URGE TO URINATE BUT IS UNABLE TO. BLADDER SCAN PERFORMED SHOWING >640 ML OF URINE RETENTION. NOTIFIED CABINETMAKER APPRENTICE MD WITH ORDER INSERT HENDERSON CATH, HENDERSON CATH INSERTED ORDERED. WILL CONTINUE TO MONITOR PATIENT
--- NOTE | 2021-12-19 07:00 | NUR ---
MS RN CLOSING NOTE PATIENT SLEEPING IN BED, ALERT/ORIENTED X 4, PT ABLE TO MAKE NEEDS KNOWN. PT STABLE ON RA, NO S/S OF DISTRESS OR SOB NOTED, BREATHING EVEN AND UNLABORED. LEFT HAND IV ACCESS INTACT AND SALINE LOCKED. HENDERSON CATH INTACT AND DRAINING DARK YELLOW URINE, 700 ML OUTPUT. MEDICATIONS GIVEN ORDERED, PT NEEDS MET THROUGHOUT SHIFT. RIGHT LEG INCISION CLEAN, DRY AND INTACT, RIGHT LEG ELEVATED WITH PILLOWS. SAFETY MEASURES IN PLACE: CALL LIGHT WITHIN REACH, SIDE RAILS UP X 2, BED LOCKED IN LOWEST POSITION, BED ALARM ON. WILL ENDORSE TO DAY SHIFT NURSE FOR CONTINUITY OF CARE
--- NOTE | 2021-12-19 07:53 | NUR ---
MS RN OPENING NOTE Patient in bed, awake. A/O x 4, able to make needs known. On room air, breathing evenly and unlabored. No SOB or s/s of distress noted. Gee catheter in place draining to a yellow colored urine. Safety precautions in place: bed in low, locked position; siderails up x 2; call light within reach. Will continue to monitor.
[2021-12-19] MEDS: FAMOTIDINE (20 MG) 20 MG TABLET PO SCH (08:49)
[2021-12-19] MEDS: METOPROLOL SUCCINATE 50 MG TAB.SR.24H PO SCH (08:49)
[2021-12-19] MEDS: DOCUSATE SODIUM 100 MG CAPSULE PO SCH ×2 (08:49→17:09)
[2021-12-19] MEDS: CLONIDINE HCL 0.1 MG TABLET PO SCH ×3 (08:50→17:10)
[2021-12-19] MEDS: SENNOSIDES/DOCUSATE SODIUM 1 TAB TABLET PO SCH (08:50)
[2021-12-19] MEDS: hydrALAZINE HCL 50 MG TABLET PO SCH ×3 (08:50→17:10)
[2021-12-19] MEDS: DRONABINOL (2.5 MG) 2.5 MG CAPSULE PO SCH ×2 (08:51→21:53)
[2021-12-19] MEDS: GABAPENTIN 300 MG CAPSULE PO SCH ×3 (08:51→17:10)
[2021-12-19] MEDS: HYDROMORPHONE 1 MG/1 ML DISP.SYRIN SQ PRN (09:56)
--- NOTE | 2021-12-19 10:19 | NUR ---
RN NOTE Patient complained of pain on Right knee, and was about to do physical therapy. Took out Dilaudid and prepared the medication but patient didn't want to get a SQ injection for pain, wanted PO instead. Called pharmacy to notify the situation. Gave patient the PRN Oxy IR 30 mg for pain. Wasted the Dilaudid 1mg/ml with Javad, Charge Nurse, as witness. Pharmacy aware.
--- NOTE | 2021-12-19 14:21 | NUR ---
RN NOTE Patient complained of Right knee pain, 7/10 on pain scale. Oxy IR 30 mg PRN med given. Will continue to monitor patient.
[2021-12-19] MEDS: ATORVASTATIN 10 MG TABLET PO SCH (17:10)
[2021-12-19] MEDS: RIVAROXABAN 10 MG TABLET PO SCH (17:15)
--- NOTE | 2021-12-19 19:31 | NUR ---
MS RN CLOSING NOTE Patient in bed, resting. A/O x 4, able to make needs known. Stable on room air, breathing evenly and unlabored. No SOB or s/s of distress noted. Gee catheter in place draining to a yellow colored urine with an output of 1100 cc. Due meds given. All needs attended to. Safety precautions maintained: bed in low, locked position; siderails up x 2; call light within reach. Will endorse to night shift manager nurse for MARC.
[2021-12-19 22:05] VITALS: BP 128/69
[2021-12-20] MEDS: oxyCODONE IR immediate release 5 MG PO PRN ×6 (02:05→23:19)
--- NOTE | 2021-12-20 07:17 | NUR ---
MS RN CLOSING NOTE PATIENT SLEEPING IN BED, ALERT/ORIENTED X 4, PT ABLE TO MAKE NEEDS KNOWN. PT STABLE ON RA, NO S/S OF DISTRESS OR SOB NOTED, BREATHING EVEN AND UNLABORED. LEFT HAND IV ACCESS INTACT AND SALINE LOCKED. HENDERSON CATH INTACT AND DRAINING YELLOW URINE. MEDICATIONS GIVEN ORDERED, PT NEEDS MET THROUGHOUT SHIFT. PATIENT WAS ABLE TO USE BSC WITH ASSIST, HOWEVER, RIGHT LEG INCISION HAD SLIGHT BLEEDING, SURGICAL DRESSING CHANGED, RIGHT LEG ELEVATED WITH PILLOWS. SAFETY MEASURES IN PLACE: CALL LIGHT WITHIN REACH, SIDE RAILS UP X 2, BED LOCKED IN LOWEST POSITION, BED ALARM ON. WILL ENDORSE TO DAY SHIFT NURSE FOR CONTINUITY OF CARE
--- NOTE | 2021-12-20 07:30 | NUR ---
FREELANCE GRAPHIC DESIGNER NOTES PT IN BED, AWAKE, ALERT AND ORIENTED, NO COMPLAINT OF PAIN AT THIS TIME, NOT IN DISTRESS, ON ROOM AIR, CALL LIGHT WITHIN REACH, PLAN OF CARE DISCUSSED WITH PT, NO BLEEDING NOTED TO RIGHT KNEE INCISION SITE, DRESSING DRY AND INTACT.
[2021-12-20 08:00] VITALS: BP 128/78
[2021-12-20] MEDS: SENNOSIDES/DOCUSATE SODIUM 1 TAB TABLET PO SCH (09:02)
[2021-12-20] MEDS: CLONIDINE HCL 0.1 MG TABLET PO SCH ×3 (09:02→17:00)
[2021-12-20] MEDS: DRONABINOL (2.5 MG) 2.5 MG CAPSULE PO SCH ×2 (09:03→21:31)
[2021-12-20] MEDS: hydrALAZINE HCL 50 MG TABLET PO SCH ×3 (09:03→17:00)
[2021-12-20] MEDS: METOPROLOL SUCCINATE 50 MG TAB.SR.24H PO SCH (09:03)
[2021-12-20] MEDS: DOCUSATE SODIUM 100 MG CAPSULE PO SCH ×2 (09:03→16:55)
[2021-12-20] MEDS: GABAPENTIN 300 MG CAPSULE PO SCH ×3 (09:03→16:55)
[2021-12-20] MEDS: FAMOTIDINE (20 MG) 20 MG TABLET PO SCH (09:03)
[2021-12-20] MEDS ORDERED: RIVA10TA PO (09:59)
[2021-12-20] MEDS ORDERED: ASPI-992 PO (09:59)
--- NOTE | 2021-12-20 13:44 | NUR ---
RN MS NOTES PT IN BED, AWAKE, ALERT AND ORIENTED, PAIN MEDS GIVEN ORDERED, PARTICIPATES IN PHYSICAL THERAPY ACTIVITIES, CALL LIGHT WITHIN REACH.
[2021-12-20 16:00] VITALS: BP 122/71
[2021-12-20] MEDS: RIVAROXABAN 10 MG TABLET PO SCH (16:54)
[2021-12-20] MEDS: ATORVASTATIN 10 MG TABLET PO SCH (18:15)
--- NOTE | 2021-12-20 18:45 | NUR ---
RN MS NOTES PT IN BED, WATCHING TV, PAIN MEDS GIVEN ORDERED, PM MEDS GIVEN ORDERED, WITH SLIGHT BLEED AT THE LOWER PART OF RIGHT KNEE SURGICAL INCISION, DRESSING CHANGED, CALL LIGHT WITHIN REACH, ALL NEEDS ATTENDED.
[2021-12-20 20:00] VITALS: BP 113/70
--- NOTE | 2021-12-20 20:15 | NUR ---
RN OPENING NOTE PATIENT AWAKE IN BED W/ AT BEDSIDE. A/OX4. NO S/S OF DISTRESS, BREATHING WELL ON RM AIR. L-HAND #22 SL INTACT AND PATENT. SAFETY MEASURES IN PLACE: BED AT LOWEST POSITION, LOCKED, RAILS UP X3, CALL VALE WITHIN REACH. WILL CONTINUE TO MONITOR PATIENT.
[2021-12-21] MEDS: oxyCODONE IR immediate release 5 MG PO PRN ×6 (04:40→19:02)
--- NOTE | 2021-12-21 06:49 | NUR ---
RN CLOSING NOTE PATIENT AWAKE IN BED. A/OX4. NO S/S OF DISTRESS, BREATHING WELL ON ROOM AIR. L-HAND #22 SL INTACT AND PATENT. SAFETY MEASURES IN PLACE: BED AT LOWEST POSITION, LOCKED, RAILS UP X3, CALL VALE WITHIN REACH. Addendum: 12/21/21 at 0728 by MIGUEL ANGEL CHINO RN REPORT GIVEN AND ACKNOWLEDGED BY RNPATO FOR MARC.
--- NOTE | 2021-12-21 07:30 | NUR ---
RN OPENING NOTE RECEIVED PATIENT AWAKE IN BED. A/OX4. NO S/S OF DISTRESS, BREATHING WELL ON ROOM AIR. L-HAND #22 SL INTACT AND PATENT. SAFETY MEASURES IN PLACE: BED AT LOWEST POSITION, LOCKED, RAILS UP X3, CALL VALE WITHIN REACH. WILL CONTINUE TO MONITOR FOR MARC.
[2021-12-21 08:00] VITALS: BP 120/68
[2021-12-21] MEDS: hydrALAZINE HCL 50 MG TABLET PO SCH ×3 (09:00→17:24)
[2021-12-21] MEDS: CLONIDINE HCL 0.1 MG TABLET PO SCH ×3 (09:00→17:25)
[2021-12-21] MEDS: METOPROLOL SUCCINATE 50 MG TAB.SR.24H PO SCH (09:02)
[2021-12-21] MEDS: SENNOSIDES/DOCUSATE SODIUM 1 TAB TABLET PO SCH (09:06)
[2021-12-21] MEDS: FAMOTIDINE (20 MG) 20 MG TABLET PO SCH (09:06)
[2021-12-21] MEDS: GABAPENTIN 300 MG CAPSULE PO SCH ×3 (09:07→17:23)
[2021-12-21] MEDS: DRONABINOL (2.5 MG) 2.5 MG CAPSULE PO SCH ×2 (09:07→20:29)
[2021-12-21] MEDS: DOCUSATE SODIUM 100 MG CAPSULE PO SCH ×2 (09:07→17:24)
[2021-12-21 10:00] VITALS: BP 118/61
[2021-12-21 16:00] VITALS: BP 133/66
[2021-12-21] MEDS: ATORVASTATIN 10 MG TABLET PO SCH (17:23)
[2021-12-21] MEDS: RIVAROXABAN 10 MG TABLET PO SCH (17:30)
--- NOTE | 2021-12-21 18:47 | NUR ---
RN CLOSING NOTE PATIENT AWAKE IN BED. A/OX4. NO S/S OF DISTRESS, BREATHING WELL ON ROOM AIR. L-HAND #22 SL INTACT AND PATENT. PATIENT HAD CPM AND SHE TOLERATED IT WELL. DRESSING CHANGED THIS AFTERNOON, AND THERE WAS NO SIGNS OF BLEEDING AND INFLAMMATION. SAFETY MEASURES IN PLACE: BED AT LOWEST POSITION, LOCKED, RAILS UP X3, CALL VALE WITHIN REACH. WILL ENDORSE TO ONCOMING SHIFT FOR MARC.
--- NOTE | 2021-12-21 19:10 | NUR ---
RN NOTE PT AWAKE IN BED, A/OX4, ABLE TO MAKE NEEDS KNOWN. SHE DENIES PAIN AT THIS TIME. RESPIRATIONS EVEN/UNLABORED. IV SITE: L-HAND #22G INTACT/PATENT/FLUSHES WELL. F/C INTACT, DRAINING WELL. PT IN NO ACUTE DISTRESS. SAFETY MEASURES IN PLACE. WILL CONT TO MONITOR.
[2021-12-21 20:00] VITALS: BP 122/69
[2021-12-22] MEDS: oxyCODONE IR immediate release 5 MG PO PRN ×6 (01:54→17:35)
--- NOTE | 2021-12-22 07:30 | NUR ---
RN OPENING NOTE RECEIVED PT AWAKE IN BED, A/OX4, ABLE TO MAKE NEEDS KNOWN. SHE DENIES PAIN AT THIS TIME. RESPIRATIONS EVEN/UNLABORED. IV SITE: L-HAND #22G INTACT/PATENT/FLUSHES WELL. F/C INTACT, DRAINING WELL. PT IN NO ACUTE DISTRESS. SAFETY MEASURES IN PLACE. WILL CONT TO MONITOR FOR MARC.
[2021-12-22 07:36] LABS: BASOPHILS % (AUTO) 0.6 % (0.0-2.0); EOSINOPHILS % (AUTO) 2.3 % (0.0-6.0); HEMATOCRIT 25 % (33-45); HEMOGLOBIN 8.1 g/dL (11.5-14.8); LYMPHOCYTES # (AUTO) 1.7 K/uL (0.8-4.8); LYMPHOCYTES % (AUTO) 25.2 % (20.0-44.0); MEAN CORPUSCULAR HGB CONC 32 g/dl (31.0-36.0); MEAN CORPUSCULAR VOLUME 76 fL (82-100); MONOCYTES # (AUTO) 1.2 K/uL (0.1-1.30); MONOCYTES % (AUTO) 17.4 % (2.0-12.0); NEUTROPHILS # (AUTO) 3.7 K/uL (1.8-8.9); NEUTROPHILS % (AUTO) 54.5 % (43.0-81.0); PLATELET COUNT (AUTO) 548 K/uL (150-450); RED BLOOD CELL COUNT(AUTO) 3.32 MIL/uL (4.0-5.2); WHITE BLOOD COUNT (AUTO) 6.7 K/uL (4.3-11.0)
[2021-12-22 07:39] LABS: CREATININE 1.5 mg/dL (0.6-1.3); POTASSIUM 4.1 mmol/L (3.5-5.1)
[2021-12-22 08:00] VITALS: BP 101/62
[2021-12-22] MEDS: CLONIDINE HCL 0.1 MG TABLET PO SCH ×3 (09:00→17:00)
[2021-12-22] MEDS: hydrALAZINE HCL 50 MG TABLET PO SCH ×3 (09:00→17:00)
[2021-12-22] MEDS: METOPROLOL SUCCINATE 50 MG TAB.SR.24H PO SCH (09:00)
[2021-12-22] MEDS: FAMOTIDINE (20 MG) 20 MG TABLET PO SCH (09:12)
[2021-12-22] MEDS: GABAPENTIN 300 MG CAPSULE PO SCH ×3 (09:12→17:58)
[2021-12-22] MEDS: SENNOSIDES/DOCUSATE SODIUM 1 TAB TABLET PO SCH (09:13)
[2021-12-22] MEDS: DRONABINOL (2.5 MG) 2.5 MG CAPSULE PO SCH ×2 (09:13→21:22)
[2021-12-22] MEDS: DOCUSATE SODIUM 100 MG CAPSULE PO SCH ×2 (09:14→17:58)
[2021-12-22 16:05] VITALS: BP 104/58
[2021-12-22 16:38] LABS: BAND % (MANUAL) 4 % (0.0-5.0); EOSINOPHILS % (MANUAL) 4 % (0-4); LYMPHOCYTES % (MANUAL) 25 % (16-48); MONOCYTES % (MANUAL) 16 % (0-11.0); NEUTROPHILS % (MANUAL) 51 (42-76)
[2021-12-22] MEDS: ATORVASTATIN 10 MG TABLET PO SCH (17:58)
[2021-12-22] MEDS: RIVAROXABAN 10 MG TABLET PO SCH (17:59)
--- NOTE | 2021-12-22 18:47 | NUR ---
MS RN CLOSING NOTES PT AWAKE IN BED, A/OX4, ABLE TO MAKE NEEDS KNOWN. RESPIRATIONS EVEN/UNLABORED. PT IN NO ACUTE DISTRESS. IV SITE: L-HAND #22G INTACT/PATENT/FLUSHES WELL. F/C INTACT, DRAINING WELL. PATIENT WAS ABLE TO WALK AND USED THE BED SIDE COMMODE WITH HEALTH ADMINISTRATOR. SAFETY MEASURES IN PLACE. WILL ENDORSE TO ONCOMING SHIFT FOR MARC.
[2021-12-22 20:00] VITALS: BP 118/67
--- NOTE | 2021-12-22 20:00 | NUR ---
MS RN OPENING NOTE PATIENT AWAKE IN BED WITH AT BEDSIDE, PATIENT ALERT/ORIENTED X 4, PATIENT ABLE TO MAKE NEEDS KNOWN. PATIENT STABLE ON RA, NO S/S OF DISTRESS OR SOB NOTED, BREATHING EVEN AND UNLABORED. IV ACCESS ON LEFT HAND #22G INTACT AND SALINE LOCKED. PATIENT DENIES PAIN AT THIS TIME. RIGHT LEG ELEVATED WITH PILLOWS. HENDERSON CATHETER IN PLACE AND DRAINING YELLOW URINE. SAFETY MEASURES IN PLACE : CALL LIGHT WITHIN REACH, SIDE RAILS UP X 2, BED LOCKED IN LOWEST POSITION, BED ALARM ON. WILL CONTINUE TO MONITOR PATIENT
[2021-12-22] MEDS ORDERED: LORAZEPAM 1 MG TABLET PO ONE (21:15)
--- NOTE | 2021-12-22 21:15 | NUR ---
MS RN NOTE PATIENT REPORTING ANXIETY AND REQUESTING MEDICATION. NOTIFIED BULLDOZER OPERATOR MD WITH ORDER FOR ONE TIME DOSE OF ATIVAN 1 MG PO. ORDER CONFIRMED AND CARRIED OUT. WILL CONTINUE TO MONITOR PATIENT
[2021-12-23] MEDS: oxyCODONE IR immediate release 5 MG PO PRN ×7 (01:08→20:49)
--- NOTE | 2021-12-23 06:36 | NUR ---
MS RN CLOSING NOTE PATIENT AWAKE WATCHING TV, PATIENT ALERT/ORIENTED X 4, PATIENT ABLE TO MAKE NEEDS KNOWN. PATIENT STABLE ON RA, NO S/S OF DISTRESS OR SOB NOTED, BREATHING EVEN AND UNLABORED. IV ACCESS ON LEFT HAND #22G INTACT AND SALINE LOCKED. RIGHT LEG ELEVATED WITH PILLOWS. HENDERSON CATHETER IN PLACE AND DRAINING YELLOW URINE. MEDICATIONS GIVEN ORDERED, PT NEEDS MET THROUGHOUT SHIFT, NO SIGNIFICANT CHANGES. SAFETY MEASURES IN PLACE : CALL LIGHT WITHIN REACH, SIDE RAILS UP X 2, BED LOCKED IN LOWEST POSITION, BED ALARM ON. WILL ENDORSE TO DAY SHIFT NURSE FOR CONTINUITY OF CARE
--- NOTE | 2021-12-23 07:44 | NUR ---
MS RN OPENING NOTE Patient in bed, asleep. A/O x 4, able to make needs known. On room air, breathing evenly and unlabored. No SOB ir s/s of distress noted. IV access on Left hand #22 SL, intact and patent. Gee catheter in place draining to a yellow colored urine. Safety precautions in place: bed in low, locked position; sideails up x 2; call light within reach. Will continue to monitor.
--- NOTE | 2021-12-23 08:46 | NUR ---
RN NOTE Patient complained of pain on her Right knee 02/20. PRN Oxy IR 30 mg given. Will continue to monitor.
[2021-12-23] MEDS: DRONABINOL (2.5 MG) 2.5 MG CAPSULE PO SCH ×2 (09:00→20:48)
[2021-12-23] MEDS: CLONIDINE HCL 0.1 MG TABLET PO SCH ×3 (09:18→17:00)
[2021-12-23] MEDS: FAMOTIDINE (20 MG) 20 MG TABLET PO SCH (09:18)
[2021-12-23] MEDS: METOPROLOL SUCCINATE 50 MG TAB.SR.24H PO SCH (09:18)
[2021-12-23] MEDS: GABAPENTIN 300 MG CAPSULE PO SCH ×3 (09:19→17:44)
[2021-12-23] MEDS: SENNOSIDES/DOCUSATE SODIUM 1 TAB TABLET PO SCH (09:19)
[2021-12-23] MEDS: hydrALAZINE HCL 50 MG TABLET PO SCH ×3 (09:19→17:00)
[2021-12-23] MEDS: DOCUSATE SODIUM 100 MG CAPSULE PO SCH ×2 (09:19→17:44)
--- NOTE | 2021-12-23 11:17 | NUR ---
RN NOTE Patient com plained of pain on her Right knee, 01/21. PRN Oxy IR 30 mg given. Will continue to monitor.
--- NOTE | 2021-12-23 12:56 | NUR ---
RN NOTE Patient refused BP meds scheduled at 1300, stated she doesn't want her BP to go down even more. Patient's BP is 125/63, CT 71. Will continue to monitor.
--- NOTE | 2021-12-23 14:44 | NUR ---
RN NOTE Patient complained of pain on her Right knee, 02/20. PRN Oxy IR 30 mg given. Will continue to monitor.
--- NOTE | 2021-12-23 15:20 | NUR ---
RN NOTE Report given to Osei from [facility].
--- NOTE | 2021-12-23 16:40 | NUR ---
RN NOTE Patient for discharge. EMT came to picking machine operator patient. Patient wanted to get pain medication before leaving. Oxy IR not due until 1742. Suggested to give Dilaudid SQ but patient refused, does not want injectables, only wanted the Oxy IR. Patient wanted to wait until Oxy IR is due. ceramic restorer left. CM notified, scheduled another transport for a later time. Addendum: 12/23/21 at 1929 by HUBERT RODRIGUEZ RN ADD: EMT arrived, IV access and ID band removed. When EMT was about to move patient to [facility], patient asked for pain medication.
--- NOTE | 2021-12-23 17:30 | NUR ---
RN NOTE Patient refused BP meds scheduled at 1700, states she doesn/t want her BP to go down. BP is 125/78.
--- NOTE | 2021-12-23 17:43 | NUR ---
RN NOTE PRN pain medication Oxy IR given for pain on Right knee.
[2021-12-23] MEDS: ATORVASTATIN 10 MG TABLET PO SCH (17:44)
[2021-12-23] MEDS: RIVAROXABAN 10 MG TABLET PO SCH (17:45)
--- NOTE | 2021-12-23 19:29 | NUR ---
MS RN CLOSING NOTE Patient in bed, resting. A/O x 4, able to make needs known. Stable on room air, breathing evenly and unlabored. No SOB or s/s of distress noted. No IV access, patient for discharge, awaiting for transport. Gee catheter in place draining to a yellow colored urine with an output of 850 cc. Due meds given. All needs attended to. Safety precautions maintained: bed in low, locked position; sideails up x 2; call light within reach. Will endorse to car shifter nurse for MARC.
--- NOTE | 2021-12-23 19:30 | NUR ---
RN NOTE PT AWAKE IN BED, A/OX4. RESPIRATIONS EVEN/UNLABORED. DENIES PAIN AT THIS TIME. PT NOT FOR DC TONIGHT, PER CM NOTES, TRANSPORTATION RE-ARRANGED FOR TOMORROW @0800. PT INFORMED AND VERBALIZED UNDERSTANDING. PT IN NO DISTRESS. SAFETY MEASURES IN PLACE. WILL CONT TO MONITOR.
[2021-12-23 20:00] VITALS: BP 116/54
[2021-12-24] MEDS: oxyCODONE IR immediate release 5 MG PO PRN ×2 (03:22→08:04)
--- NOTE | 2021-12-24 04:37 | NUR ---
RN NOTE PT C/O ANXIETY, ASKING FOR ANTI-ANXIETY MED. REQUESTED TO ON-CALL HYUN MARX NP WITH ORDER FOR ATIVAN 1MG PO X1 ONLY AFTER 05:30 SO NOT TO BE TOO CLOSE TO HER LAST PAIN MED (OXY IR). EXPLAINED TO PT AND SHE VERBALIZED UNDERSTANDING.
[2021-12-24] MEDS ORDERED: LORAZEPAM 1 MG TABLET PO PRN (05:30)
--- NOTE | 2021-12-24 06:12 | NUR ---
RN NOTE SPOKE TO PT ABOUT HER ONE-TIME DOSE OF ATIVAN, SHE STATES SHE WILL TAKE IT. MED WAS SCANNED, OPENED AND OFFERED, BUT PT CHANGED HER MIND AND STATED SHE WILL NOT TAKE IT AFTER ALL TODAY BECAUSE SHE WILL BE TAKING THE OXY IR IN ABOUT 1 HOUR. ATIVAN TAB WASTED AND WITNESSED BY CHARGE NURSE.
--- NOTE | 2021-12-24 07:15 | NUR ---
RN OPENING NOTES RECEIVED PATIENT IN BED, AWAKE, A/O X4, VERBALLY RESPONSIVE, NO SIGNS OF ACUTE DISTRESS NOTED. STABLE ON ROOM AIR. NO IV ACCESS. WITH F/C INTACT AND PATENT DRAINING CLEAR YELLOW URINE. FOR DISCHARGE TODAY, P/U AT 0800. SAFETY MEASURES MAINTAINED.
--- NOTE | 2021-12-24 07:30 | NUR ---
RN NOTES REPORT GIVEN TO LINDA DUMONT FROM [facility]..
[2021-12-24] MEDS: DOCUSATE SODIUM 100 MG CAPSULE PO SCH (08:04)
[2021-12-24] MEDS: GABAPENTIN 300 MG CAPSULE PO SCH (08:04)
[2021-12-24] MEDS: SENNOSIDES/DOCUSATE SODIUM 1 TAB TABLET PO SCH (08:04)
[2021-12-24] MEDS: FAMOTIDINE (20 MG) 20 MG TABLET PO SCH (08:04)
[2021-12-24] MEDS: DRONABINOL (2.5 MG) 2.5 MG CAPSULE PO SCH (08:05)
[2021-12-24] MEDS: hydrALAZINE HCL 50 MG TABLET PO SCH (08:25)
[2021-12-24 08:26] VITALS: BP 108/63
[2021-12-24] MEDS: METOPROLOL SUCCINATE 50 MG TAB.SR.24H PO SCH (08:26)
[2021-12-24] MEDS: CLONIDINE HCL 0.1 MG TABLET PO SCH (08:26)
--- NOTE | 2021-12-24 08:40 | NUR ---
TYPING POOL SUPERVISOR NOTES PATIENT DISCHARGED TO [facility] IN STABLE CONDITION. PATIENT REMAINS ALERT AND ORIENTED, VERBALLY RESPONSIVE, ABLE TO MAKE NEEDS KNOWN. VITAL SIGNS TAKEN, STABLE AND RECORDED. NO IV ACCESS, ARM NAME BAND WAS REMOVED. WITH F/C INTACT, DRAINED 400 ML OF CLEAR YELLOW URINE. MEDICATED FOR PAIN WITH OXY IR 60MG PO. PATIENT LEFT UNIT AT 0830 P/U BY [facility]IA GURNEY. PATIENT LEFT IN [facility].
[2021-12-28] MEDS ORDERED: ASPIRIN 325 MG TABLET PO SCH (09:00)
== END 2021-12-24 08:40 | DRG 326 ==
LOC: DS 05:06 → MED 05:12
PROVIDERS: ADMIT Internal Medicine; ATTEND Nurse Practitioner Acute Care
PROC: 0SRC0J9 Replacement of Right Knee Joint with Synthetic Substitute, Cemented, Open Approach (ICD-10-PCS; principal; 2021-12-13)
DX: M17.11 Unilateral primary osteoarthritis, right knee (principal); D68.59 Other primary thrombophilia; I50.32 Chronic diastolic (congestive) heart failure; E44.1 Mild protein-calorie malnutrition; I11.0 Hypertensive heart disease with heart failure; Z68.43 Body mass index [BMI] 50.0-59.9, adult; E66.01 Morbid (severe) obesity due to excess calories; K21.9 Gastro-esophageal reflux disease without esophagitis; G89.29 Other chronic pain; F11.20 Opioid dependence, uncomplicated; Z95.810 Presence of automatic (implantable) cardiac defibrillator; F12.90 Cannabis use, unspecified, uncomplicated; Z87.891 Personal history of nicotine dependence; D64.9 Anemia, unspecified; Z79.899 Other long term (current) drug therapy; Z82.49 Family history of ischemic heart disease and other diseases of the circulatory system; I49.9 Cardiac arrhythmia, unspecified; Z74.09 Other reduced mobility
CPT/HCPCS: 36415; 71045-TC; 80048-TC; 82962-TC; 83735-TC; 84100-TC; 84703-TC; 85025-TC; 86850-TC; 87081-TC; 93971-TC; 97110-TC; 97112-TC; 97116-TC; 97530-TC; 97760-TC; A4217; C1713; C1776; G0378; J0330; J0360; J0690; J1100; J1170; J1885; J2405; J2704; J3010; J3490; J7030; J7050; J7060; L1830; Q0167

== ENCOUNTER 2022-01-25 00:33 | Inpatient (IN) | payer MEDICAID ==
[~2022-01-25] VITALS: Ht 157.5 cm; Wt 130.2 kg
[~2022-01-25 00:33] MED LIST changes: -ANESTHESIA TRAY IN PYXIS 1 EA TRAY MC ONE; +ASPI-992 PO; +ATOR10TA PO; +CLON0.1T PO; +FAMO40TA7 PO; +GABA300C PO; +HYDR100T27 PO; +METO200T49 PO; +RIVA10TA PO
[2022-01-25 08:30] VITALS: BP 150/68
--- NOTE | 2022-01-25 08:30 | NUR ---
BOBBIN MARKER NOTES RECEIVED PATIENT FROM [facility] VIA GURNEY. PATIENT IS AWAKE AND A/O X4. ON ROOM AIR TOLERATING WELL. NO SOB NOTED. NOT IN DISTRESS. WITH COMPLAINTS OF PAIN AT THE RIGHT KNEE AT THE SCALE OF 6/10. COMFORT MEASURES PROVIDED. WITH NO IV ACCESS. SKIN ASSESSMENT DONE. WITH RIGHT KNEE ABSCESS WITH PHOTO TAKEN AND PLACED ON CHART. SAFETY MEASURES IN PLACED. CALL LIGHT WITHIN REACH. BED ON LOWEST LOCKED POSITION, SIDE RAILS UP X2. WILL CONTINUE TO MONITOR.
[2022-01-25] MEDS ORDERED: ACETAMINOPHEN 325 MG TABLET PO PRN (12:00)
[2022-01-25] MEDS ORDERED: ONDANSETRON HCL/PF 4 MG/2 ML VIAL IVP PRN (12:00)
[2022-01-25 12:08] LABS: BASOPHILS % (AUTO) 1.1 % (0.0-2.0); EOSINOPHILS % (AUTO) 3.9 % (0.0-6.0); HEMATOCRIT 30 % (33-45); HEMOGLOBIN 9.5 g/dL (11.5-14.8); LYMPHOCYTES # (AUTO) 1.5 K/uL (0.8-4.8); LYMPHOCYTES % (AUTO) 39.4 % (20.0-44.0); MEAN CORPUSCULAR HGB CONC 32 g/dl (31.0-36.0); MEAN CORPUSCULAR VOLUME 76 fL (82-100); MONOCYTES # (AUTO) 0.3 K/uL (0.1-1.30); MONOCYTES % (AUTO) 8.8 % (2.0-12.0); NEUTROPHILS # (AUTO) 1.8 K/uL (1.8-8.9); NEUTROPHILS % (AUTO) 46.8 % (43.0-81.0); PLATELET COUNT (AUTO) 318 K/uL (150-450); RED BLOOD CELL COUNT(AUTO) 3.89 MIL/uL (4.0-5.2); WHITE BLOOD COUNT (AUTO) 3.9 K/uL (4.3-11.0)
[2022-01-25 12:23] LABS: CALCIUM, SERUM 8.7 mg/dL (8.5-10.1); CREATININE 1.2 mg/dL (0.6-1.3); POTASSIUM 3.9 mmol/L (3.5-5.1)
[2022-01-25 12:29] LABS: ALBUMIN 3.3 g/dL (3.4-5.0); BILIRUBIN,TOTAL 0.2 mg/dL (0.2-1.0); TOTAL PROTEIN, SERUM 6.6 g/dL (6.4-8.2)
[2022-01-25] MEDS: CEFEPIME 2 GM in IV D5W 100 ML IV SCH ×2 (13:00→13:46)
[2022-01-25] MEDS: hydrALAZINE HCL 50 MG TABLET PO SCH ×2 (13:46→16:44)
[2022-01-25] MEDS ORDERED: VANCOMYCIN 1.25 GM in IV D5W 250 ML IV ONE (14:00)
[2022-01-25] MEDS ORDERED: POLYMYXIN B SULFATE 500,000 UNITS ONE (15:34)
[2022-01-25] MEDS ORDERED: ANESTHESIA TRAY IN PYXIS 1 EA TRAY MC ONE (15:35)
[2022-01-25] MEDS ORDERED: BUPIVACAINE 0.5 % PF 150 MG/30 ML VIAL ONE (15:35)
[2022-01-25] MEDS ORDERED: RIVAROXABAN 10 MG TABLET PO SCH (17:00)
--- NOTE | 2022-01-25 17:00 | NUR ---
RN NOTES CONSENT SIGNED BY PATIENT FOR INCISION AND DRAINAGE, REMOVAL OF IMPLANT, PLACEMENT OF ANTIBIOTIC SPACE AND POSSIBLE WOUND VAC OF RIGHT KNEE AND PLACED ON CHART.
--- NOTE | 2022-01-25 17:00 | NUR ---
RN NOTE VANCOMYCIN IV AND MAXIPIME IV WERE NOT GIVEN FOR PATIENT HAS NO IV LINE. ATTEMPTED MULTIPLE TIME IV INSERTION BUT FAILED TO INSERT IV. PATIENT IS FOR MIDLINE INSERTION.
[2022-01-25] MEDS: ATORVASTATIN 10 MG TABLET PO SCH (17:58)
--- NOTE | 2022-01-25 19:00 | NUR ---
RN CLOSING NOTES PATIENT IS IN THE OR FOR INCISION AND DRAINAGE, REMOVAL OF IMPLANT, PLACEMENT OF ANTIBIOTIC SPACE AND POSSIBLE WOUND VAC OF RIGHT KNEE. ENDORSED TO DIRECTOR SMB SALES NURSE FOR MARC.
[2022-01-25] MEDS ORDERED: FENTANYL PF 250MCG/5ML AMPUL ONE (19:23)
[2022-01-25] MEDS ORDERED: VECURONIUM 10 MG VIAL ONE (19:23)
[2022-01-25] MEDS ORDERED: ROCURONIUM BROMIDE 50 MG/5 ML ONE (19:25)
[2022-01-25] MEDS ORDERED: CEFAZOLIN 2 GM ONE (19:35)
[2022-01-25] MEDS ORDERED: TRANEXAMIC ACID 3,000 MG in SODIUM CHLORIDE IRRIG SOLUTION 70 ML IR ONE (21:00)
[2022-01-25] MEDS ORDERED: hydrALAZINE HCL IV 20 MG VIAL ONE ×2 (21:15→22:18)
[2022-01-25] MEDS ORDERED: FENTANYL PF 100MCG/2ML AMPUL ONE ×4 (21:32→22:07)
--- NOTE | 2022-01-25 21:46 | NUR ---
1919- Received report from day shift nurse. Pt is in the OR at this time for a debridement of R knee. 2099- Pt is still having procedure done in OR. Pt off floor and unable to administer meds at this time.
[2022-01-25 23:45] VITALS: BP 163/91
[2022-01-26] MEDS: CEFEPIME 2 GM in IV D5W 100 ML IV SCH ×3 (00:51→20:09)
[2022-01-26] MEDS: MORPHINE SULFATE INJ 2 MG/ML DISP.SYRIN IV PRN ×2 (01:45→05:34)
--- NOTE | 2022-01-26 01:45 | NUR ---
RN Note Pt reports of 10/10 pain on her right knee and back; pain is described as sharp. Pt requests for morphine. Pt administered morphine 2 mg. Will monitor for effectiveness.
--- NOTE | 2022-01-26 01:47 | NUR ---
RN NOTE PT COMPLAINS OF 05/23 PAIN ON HER BACK AND RIGHT KNEE THAT'S DESCRIBED SHARP. PT REQUESTS FOR PAIN MED. PT GIVEN MORPHINE 2 MG. WILL MONITOR FOR EFFECTIVENESS. Addendum: 01/26/22 at 0646 by PRINCESS JULIANA MCKEON DATE 01/26/22 TIME 9691
[2022-01-26] MEDS: VANCOMYCIN 1 GM in IV D5W 250 ML IV SCH ×2 (03:00→16:14)
[2022-01-26 06:23] LABS: ALBUMIN 3.2 g/dL (3.4-5.0); BILIRUBIN,TOTAL 0.2 mg/dL (0.2-1.0); CALCIUM, SERUM 8.6 mg/dL (8.5-10.1); CREATININE 1.2 mg/dL (0.6-1.3); MAGNESIUM 1.7 mg/dL (1.8-2.4); PHOSPHORUS 3.1 mg/dL (2.5-4.9); POTASSIUM 3.9 mmol/L (3.5-5.1); TOTAL PROTEIN, SERUM 6.6 g/dL (6.4-8.2)
[2022-01-26 06:40] LABS: BASOPHILS % (AUTO) 0.1 % (0.0-2.0); HEMATOCRIT 29 % (33-45); HEMOGLOBIN 9.7 g/dL (11.5-14.8); LYMPHOCYTES # (AUTO) 0.9 K/uL (0.8-4.8); MEAN CORPUSCULAR HGB CONC 33 g/dl (31.0-36.0); MEAN CORPUSCULAR VOLUME 76 fL (82-100); MONOCYTES # (AUTO) 0.3 K/uL (0.1-1.30); MONOCYTES % (AUTO) 3.4 % (2.0-12.0); NEUTROPHILS # (AUTO) 7.3 K/uL (1.8-8.9); NEUTROPHILS % (AUTO) 85.5 % (43.0-81.0); PLATELET COUNT (AUTO) 370 K/uL (150-450); RED BLOOD CELL COUNT(AUTO) 3.81 MIL/uL (4.0-5.2); WHITE BLOOD COUNT (AUTO) 8.5 K/uL (4.3-11.0)
--- NOTE | 2022-01-26 06:40 | NUR ---
MS RN CLOSING NOTE PT IN BED, DOZES INTERMITTENTLY, EASILY AROUSABLE, A&O X4, CALM, COOPERATIVE. PT CONTINUES TO COMPLAIN OF SEVERE PAIN ON RIGHT KNEE AND BACK; GAVE MORPHINE, BUT SAYS IT'S NOT REALLY EFFECTIVE. HENDERSON INTACT AND PATENT DRAINING CLEAR AND YELLOW URINE. VSS WITH NO SIGNIFICANT FINDINGS. WOUND VAC IN PLACE FOR S/P DEBRIDEMENT ON RIGHT KNEE. LAC 22G INTACT AND PATENT; INFUSED SCHEDULED MEDS AND FLUIDS. BED IN LOWEST POSITION, CALL LIGHT WITHIN REACH, SIDE RAILS UP X3. WILL ENDORSE TO DAYSHIFT NURSE TO CONTINUE CARE.
--- NOTE | 2022-01-26 07:30 | NUR ---
RN MS NOTES PT IN BED, AWAKE, ALERT AND ORIENTED, NO COMPLAINT OF PAIN AT THIS TIME, RESPIRATIONS NORMAL, CALL LIGHT WITHIN REACH, NEEDS ATTENDED.
[2022-01-26 08:03] LABS: IRON, SERUM 21 ug/dl (50-175); TOTAL IRON BINDING CAPACITY 248 ug/dl (250-450)
[2022-01-26 08:18] LABS: FERRITIN 346 ng/mL (8-388)
[2022-01-26] MEDS ORDERED: HYDROMORPHONE INJ 2 MG/ML DISP.SYRIN IV PRN (08:30)
[2022-01-26] MEDS ORDERED: oxyCODONE/APAP (5/325 MG) 1 UDTAB TABLET PO PRN (08:30)
--- NOTE | 2022-01-26 08:35 | NUR ---
WOUND CARE CONSULT: PT NOTED TO HAVE [employer] WOUND VAC TO RT KNEE BUT NO POWER. ATTEMPTED TO RESTART WOUND VAC WITH POWER CORD BUT VAC ALARMING. DR FLORES NOTIFIED WELL FORENSICS ANALYST AND GEOSPATIAL INFORMATION SCIENTIST. ORDER RECEIVED TO CHANGE VAC DRESSING FROM DR FLORES. DISCUSSED WITH NURSING STAFF.
[2022-01-26] MEDS: GABAPENTIN 300 MG CAPSULE PO SCH ×3 (09:20→19:05)
[2022-01-26] MEDS: CLONIDINE HCL 0.1 MG TABLET PO SCH ×3 (09:20→16:45)
[2022-01-26] MEDS: METOPROLOL SUCCINATE 50 MG TAB.SR.24H PO SCH (09:21)
[2022-01-26] MEDS: FAMOTIDINE (20 MG) 20 MG TABLET PO SCH (09:21)
[2022-01-26] MEDS: hydrALAZINE HCL 50 MG TABLET PO SCH ×3 (09:22→16:44)
--- NOTE | 2022-01-26 09:28 | NUR ---
RN MS NOTES WOUND CARE NURSE CHASE AT BEDSIDE REAPPLYING THE WOUND VAC, PAIN MEDS GIVEN TO PT, PER DR. LEWIS, IT IS OK TO GIVE PERCOCET AND DILAUDID IV AT THE SAME TIME, PT TOLERATING PROCEDURE WELL.
--- NOTE | 2022-01-26 10:54 | NUR ---
WOUND CARE: WOUND VAC DRESSING CHANGED PER DR FLORES BUT AFTER FEW MINUTES, OCCLUSION NOTED WITH VAC ALARMING. CHANGED CANISTER AND TRAC PAD/TUBING BUT CONSTANT OCCLUSIONS NOTED. DR FLORES NOTIFIED AND ORDER TO APPLY XEROFORM DSG, ABD PAD AND SECURE WITH KERLIX. WILL RESTART VAC IN AM PER DR FLORES. DISCUSSED SKIN PROTECTION WITH NURSING STAFF. Addendum: 01/26/22 at 1056 by CHASE WUU Amended: Links added. Addendum: 01/26/22 at 1202 by CHASE FRANZ [id number] ADDITIONAL NOTE: 300cc RED DRAINAGE AND 30cc RED DRAINAGE IN DISCARDED CANISTERS.
[2022-01-26] MEDS: ASPIRIN 325 MG TABLET PO SCH (13:03)
[2022-01-26] MEDS ORDERED: oxyCODONE IR immediate release 5 MG PO ONE (13:34)
[2022-01-26] MEDS ORDERED: MAG HYDROX/AL HYDROX/SIMETH 30 ML UDC PO PRN (14:00)
[2022-01-26] MEDS ORDERED: ONDANSETRON HCL/PF 4 MG/2 ML VIAL IV PRN (14:00)
[2022-01-26] MEDS ORDERED: MAGNESIUM HYDROXIDE 30 ML UDC PO PRN (14:00)
[2022-01-26] MEDS ORDERED: diphenhydrAMINE HCL 25 MG CAPSULE PO PRN (14:00)
[2022-01-26] MEDS: HYDROMORPHONE 1 MG/1 ML DISP.SYRIN SQ PRN (16:12)
[2022-01-26] MEDS: DRONABINOL (2.5 MG) 2.5 MG CAPSULE PO SCH (17:00)
[2022-01-26] MEDS: Magnesium 1GM/D5W 100ML PREMIX 100 ML IV SCH ×2 (17:25→18:56)
--- NOTE | 2022-01-26 18:30 | NUR ---
RN MS NOTES PT IN BED, SLEEPING INTERMITTENTLY, PAIN MEDS GIVEN NEEDED FOR PAIN MANAGEMENT, SEEN BY DR. MARINELLI AND DR. LEMON TODAY, PICC LINE INSERTED TO RIGHT UPPER ARM, TOLERTED PROCEDURE WELL, DUE MEDS GIVEN ORDERED, ALL NEEDS ATTENDED.
[2022-01-26] MEDS: ATORVASTATIN 10 MG TABLET PO SCH (19:05)
[2022-01-26] MEDS: DOCUSATE SODIUM 100 MG CAPSULE PO SCH (19:05)
--- NOTE | 2022-01-26 19:30 | NUR ---
RN OPENING NOTES PT IN BED, AWAKE, SPEAKING WITH AOx4. PATIENT IS STABLE. WILL CONTINUE TO MONITOR.
[2022-01-26 20:00] VITALS: BP 100/50
[2022-01-26] MEDS: oxyCODONE IR immediate release 5 MG PO PRN (20:10)
[2022-01-27] MEDS: VANCOMYCIN 1 GM in IV D5W 250 ML IV SCH (01:06)
[2022-01-27] MEDS: oxyCODONE IR immediate release 5 MG PO PRN ×6 (01:06→23:48)
--- NOTE | 2022-01-27 01:19 | NUR ---
RN NOTES ADMINISTERED OXYCODONE @ 0106 PER MD ORDER FOR PAIN. VS WNL. WILL CONTINUE TO MONITOR.
--- NOTE | 2022-01-27 05:32 | NUR ---
RN NOTES ADMINISTERED OXYCODONE @ 0532 PER MD ORDER FOR PAIN. VS WNL. WILL CONTINUE TO MONITOR.
[2022-01-27 06:29] LABS: BASOPHILS # (AUTO) 0.1 K/uL (0.0-0.2); BASOPHILS % (AUTO) 0.8 % (0.0-2.0); EOSINOPHILS % (AUTO) 0.1 % (0.0-6.0); HEMATOCRIT 22 % (33-45); HEMOGLOBIN 7.3 g/dL (11.5-14.8); LYMPHOCYTES # (AUTO) 1.8 K/uL (0.8-4.8); LYMPHOCYTES % (AUTO) 28.5 % (20.0-44.0); MEAN CORPUSCULAR HGB CONC 33 g/dl (31.0-36.0); MEAN CORPUSCULAR VOLUME 75 fL (82-100); MONOCYTES # (AUTO) 0.8 K/uL (0.1-1.30); MONOCYTES % (AUTO) 13.1 % (2.0-12.0); NEUTROPHILS # (AUTO) 3.6 K/uL (1.8-8.9); NEUTROPHILS % (AUTO) 57.5 % (43.0-81.0); PLATELET COUNT (AUTO) 280 K/uL (150-450); RED BLOOD CELL COUNT(AUTO) 2.94 MIL/uL (4.0-5.2); WHITE BLOOD COUNT (AUTO) 6.3 K/uL (4.3-11.0)
[2022-01-27] MEDS: HYDROMORPHONE 1 MG/1 ML DISP.SYRIN SQ PRN ×4 (06:29→21:30)
--- NOTE | 2022-01-27 06:33 | NUR ---
RN NOTES ADMINISTERED DILAUDID @ 0629 PER MD ORDER FOR PAIN. VS WNL. WILL CONTINUE TO MONITOR.
--- NOTE | 2022-01-27 06:40 | NUR ---
RN CLOSING NOTES PT IN BED, AWAKE, WATCHING TV. AOx4, ABLE TO MAKE NEEDS KNOWN. ON RA AND TOLERATING WELL. NO SOB NOTED. NO S/SX OF RESPIRATORY DISTRESS NOTED. IV ACCESS IN AMOR PICC LINE. IV IS INTACT, PATENT, AND FLUSHING WELL. TREATED PAIN THROUGHOUT SHIFT. SAFETY PRECAUTIONS IN PLACE: BED IN LOWEST, LOCKED POSITION, SIDERAILS UPx2, AND BRAKES ON. TABLE AND CALL LIGHT WITHIN REACH. WILL ENDORSE TO ONCOMING SHIFT FOR MARC.
[2022-01-27 07:07] LABS: CALCIUM, SERUM 8.4 mg/dL (8.5-10.1); CREATININE 1.9 mg/dL (0.6-1.3); MAGNESIUM 2.4 mg/dL (1.8-2.4); PHOSPHORUS 4.4 mg/dL (2.5-4.9); POTASSIUM 4.2 mmol/L (3.5-5.1)
[2022-01-27 08:00] VITALS: BP 110/52
--- NOTE | 2022-01-27 08:13 | NUR ---
WOUND CARE FOLLOW UP: PT SEEN FOR WOUND VAC DRESSING APPLICATION TO RT KNEE. WOUND CLEANSED WITH NS AND SOME CLOTS WERE CLEANSED AWAY GENTLY WITH SALINE GAUZE. ONLY SMALL AMOUNT OF SEROSANGUINOUS DRAINAGE NOTED, NO ODOR. WOUND BED RED IN COLOR. SKIN PREP AND VAC DRAPE WERE APPLIED TO PERIWOUND AREAS, GRANUFOAM TO WOUND. VAC AT 125mmHg CONTINUOUS SETTING. PT TOLERATED WELL. WILL FOLLOW. NEXT DRESSING CHANGE MONDAY.
--- NOTE | 2022-01-27 08:30 | NUR ---
MS RN NOTE PATIENT WITH WOUND VAC FUCNTIONING WELL. IN STABLE CONDITION.
[2022-01-27] MEDS: CLONIDINE HCL 0.1 MG TABLET PO SCH ×3 (09:00→17:00)
[2022-01-27] MEDS: METOPROLOL SUCCINATE 50 MG TAB.SR.24H PO SCH (09:00)
[2022-01-27] MEDS ORDERED: IV NS 0.9% 1,000 ML IV ONE (09:00)
[2022-01-27] MEDS ORDERED: SOD FERRIC GLUC 125 MG in IV NS 0.9% 100 ML IV SCH ×2 (09:00→14:00)
[2022-01-27] MEDS: hydrALAZINE HCL 50 MG TABLET PO SCH ×3 (09:00→17:00)
[2022-01-27] MEDS: ASPIRIN 325 MG TABLET PO SCH (09:11)
[2022-01-27] MEDS: DOCUSATE SODIUM 100 MG CAPSULE PO SCH ×2 (09:12→17:22)
[2022-01-27] MEDS: DRONABINOL (2.5 MG) 2.5 MG CAPSULE PO SCH ×2 (09:12→17:22)
[2022-01-27] MEDS: GABAPENTIN 300 MG CAPSULE PO SCH ×3 (09:12→17:22)
[2022-01-27] MEDS: FAMOTIDINE (20 MG) 20 MG TABLET PO SCH (09:12)
[2022-01-27] MEDS: CEFEPIME 2 GM in IV D5W 100 ML IV SCH ×2 (09:12→20:25)
[2022-01-27] MEDS: ATORVASTATIN 10 MG TABLET PO SCH (17:22)
--- NOTE | 2022-01-27 19:00 | NUR ---
MS RN NOTE ENDORSED TO NEXT SHIFT FOR CONTINUITY OF CARE.
--- NOTE | 2022-01-27 19:30 | NUR ---
RN OPENING NOTE PATIENT IN BED, AWAKE, AT BEDSIDE. PATIENT IS A/O X 4 ABLE TO MAKE NEEDS KNOWN, NO PAIN AT THIS TIME. PATIENT HAS A WOUND VAC PLACED AT 125 MM HG CONTINUOUSLY, DRESSING C/D/I. WAS PLACED TODAY. PATIENT ALSO HAS A HENDERSON CATHETER DRAINING VIA GRAVITY. AMOR PICC LINE SALINE LOCKED AT THIS TIME. SAFETY MEASURES IN PLACE: BED LOCKED AND IN LOWEST POSITION, CALL LIGHT WITHIN REACH, SIDE RAILS UP. WILL MONITOR PATIENT CLOSELY.
[2022-01-27 20:00] VITALS: BP 138/55
--- NOTE | 2022-01-27 20:30 | NUR ---
RN NOTE PATIENT GIVEN OXY IR FOR 7/10 PAIN ON R KNEE, WILL REASSESS MED EFFECTIVENESS.
--- NOTE | 2022-01-27 21:30 | NUR ---
RN NOTE PATIENT GIVEN DILAUDID 1 MG IV FOR SEVERE PAIN ON R KNEE. WILL REASSESS MED EFFECTIVENESS. BP 102/55, HR 70, O2 05%, RESP 18.
--- NOTE | 2022-01-27 23:48 | NUR ---
RN NOTE PATIENT GIVEN OXY IR FOR 7/10 PAIN ON R KNEE, WILL REASSESS MED EFFECTIVENESS.
[2022-01-27] MEDS: VANCOMYCIN 1.5 GM in IV D5W 500ml IV SCH (23:51)
[2022-01-28] MEDS: HYDROMORPHONE 1 MG/1 ML DISP.SYRIN SQ PRN ×5 (00:57→21:18)
--- NOTE | 2022-01-28 00:57 | NUR ---
RN NOTE PATIENT GIVEN DILAUDID 1 MG IV FOR SEVERE PAIN ON R KNEE. WILL REASSESS MED EFFECTIVENESS. BP 109/60, HR 65. O2 94%, RESP 18.
[2022-01-28] MEDS: oxyCODONE IR immediate release 5 MG PO PRN ×4 (02:54→17:25)
--- NOTE | 2022-01-28 02:54 | NUR ---
RN NOTE PATIENT GIVEN OXY IR FOR PAIN ON R KNEE, WILL REASSESS MED EFFECTIVENESS.
--- NOTE | 2022-01-28 04:08 | NUR ---
RN NOTE PATIENT GIVEN DILAUDID 1 MG IV FOR SEVERE PAIN ON R KNEE. WILL REASSESS MED EFFECTIVENESS. BP 105/64, HR 68, RESP 18, O2 95%
[2022-01-28] MEDS ORDERED: oxyCODONE IR immediate release 5 MG ONE (06:01)
--- NOTE | 2022-01-28 06:34 | NUR ---
RN CLOSING NOTE PATIENT IN BED, AWAKE. PATIENT IS A/O X 4 ABLE TO MAKE NEEDS KNOWN. PATIENT IS ON RA, TOLERATING WELL. PATIENT HAS A WOUND VAC PLACED AT 125 MM HG CONTINUOUSLY, DRESSING C/D/I. PATIENT RECENTLY GIVEN OXY IR FOR PAIN ON THE R KNEE. PAIN MANAGED APPROPRIATELY. PATIENT ALSO HAS A HENDERSON CATHETER DRAINING VIA GRAVITY. AMOR PICC LINE SALINE LOCKED AT THIS TIME. LAB WILL COME BACK TO DRAW WE ARE UNABLE TO DRAW FROM LINE AT THIS TIME. SAFETY MEASURES IN PLACE: BED LOCKED AND IN LOWEST POSITION, CALL LIGHT WITHIN REACH, SIDE RAILS UP. ALL NEEDS MET AND ATTENDED. ALL ORDERS CARRIED OUT. WILL ENDORSE TO DAY SHIFT NURSE FOR MARC
--- NOTE | 2022-01-28 07:04 | NUR ---
WOUND CARE: [employer] WOUND VAC FUNCTIONING WELL TO RT KNEE AT 125mmHg CONTINUOUS SETTING WITH 125cc RED DRAINAGE IN CANISTER. WILL FOLLOW.
--- NOTE | 2022-01-28 07:30 | NUR ---
RN MS NOTES PT IN BED, ASLEEP, EASY TO AROUSE, NO COMPLAINT AT THIS TIME, RESPIRATIONS NORMAL, CALL LIGHT WITHIN REACH, WOUND VAC ATTACHED TO RIGHT KNEE, DRAINING WELL, KEPT COMFORTABLE.
[2022-01-28 08:00] VITALS: BP 120/64
[2022-01-28] MEDS: ASPIRIN 325 MG TABLET PO SCH (08:24)
[2022-01-28] MEDS: CEFEPIME 2 GM in IV D5W 100 ML IV SCH ×2 (08:24→21:17)
[2022-01-28] MEDS: GABAPENTIN 300 MG CAPSULE PO SCH ×3 (08:25→17:21)
[2022-01-28] MEDS: FAMOTIDINE (20 MG) 20 MG TABLET PO SCH (08:25)
[2022-01-28] MEDS: DOCUSATE SODIUM 100 MG CAPSULE PO SCH ×2 (08:25→17:21)
[2022-01-28] MEDS: FERROUS SULFATE (325 MG) 325 MG/TAB TABLET PO SCH ×3 (08:25→17:21)
[2022-01-28] MEDS: DRONABINOL (2.5 MG) 2.5 MG CAPSULE PO SCH ×2 (08:25→17:21)
[2022-01-28] MEDS: METOPROLOL SUCCINATE 50 MG TAB.SR.24H PO SCH (09:00)
[2022-01-28] MEDS: CLONIDINE HCL 0.1 MG TABLET PO SCH ×3 (09:00→17:00)
[2022-01-28] MEDS: hydrALAZINE HCL 50 MG TABLET PO SCH ×3 (09:00→17:00)
[2022-01-28 09:42] LABS: BASOPHILS # (AUTO) 0.1 K/uL (0.0-0.2); BASOPHILS % (AUTO) 1.2 % (0.0-2.0); EOSINOPHILS % (AUTO) 2.5 % (0.0-6.0); HEMATOCRIT 22 % (33-45); HEMOGLOBIN 7.1 g/dL (11.5-14.8); LYMPHOCYTES # (AUTO) 2.9 K/uL (0.8-4.8); LYMPHOCYTES % (AUTO) 33.3 % (20.0-44.0); MEAN CORPUSCULAR HGB CONC 33 g/dl (31.0-36.0); MEAN CORPUSCULAR VOLUME 76 fL (82-100); MONOCYTES % (AUTO) 11.8 % (2.0-12.0); NEUTROPHILS # (AUTO) 4.4 K/uL (1.8-8.9); NEUTROPHILS % (AUTO) 51.2 % (43.0-81.0); PLATELET COUNT (AUTO) 320 K/uL (150-450); WHITE BLOOD COUNT (AUTO) 8.6 K/uL (4.3-11.0)
--- NOTE | 2022-01-28 11:00 | NUR ---
RN MS NOTES RECEIVED ORDER FROM DR. LEWIS TO GIVE 1 UNIT PRBC FOR HGB 7.1, NOTED AND CARRIED OUT, PT INFORMED, CONSENT GIVEN.
[2022-01-28 12:02] LABS: CREATININE 1.9 mg/dL (0.6-1.3); POTASSIUM 4.2 mmol/L (3.5-5.1)
[2022-01-28 12:07] LABS: ALBUMIN 2.7 g/dL (3.4-5.0); BILIRUBIN,TOTAL 0.2 mg/dL (0.2-1.0); TOTAL PROTEIN, SERUM 6.3 g/dL (6.4-8.2)
[2022-01-28 14:39] VITALS: BP 120/64
[2022-01-28 14:54] VITALS: BP 127/61
[2022-01-28 15:54] VITALS: BP 123/55
[2022-01-28] MEDS: ATORVASTATIN 10 MG TABLET PO SCH (17:21)
[2022-01-28 17:34] VITALS: BP 122/68
--- NOTE | 2022-01-28 18:42 | NUR ---
RN MS NOTES PT IN BED, AWAKE, ALERT AND ORIENTED, PAIN MEDS GIVEN FOR PAIN MANAGEMENT, NOT IN DISTRESS, COMPLETED 1 UNIT PRBC TRANSFUSION ORDERED BY DR. LEWIS, TOLERATED WELL, NO ADVERSE REACTION NOTED, WOUND VAC ATTACHED TO RIGHT KNEE, DRAINING WELL, CALL LIGHT WITHIN REACH, ALL NEEDS ATTENDED.
[2022-01-28 20:09] VITALS: BP 143/58
--- NOTE | 2022-01-28 22:48 | NUR ---
MS/TELE/RN AT INITIAL SHIFT ROUND AT 1930, PATIENT WAS IN BED AWAKE, ALERT, ORIENTED, NO SIGNS OF DISTRESS NOTED, WOUND VAC TO LEFT LEG, WORKING WELL, CALL LIGHT IN REACH, FALL PRECAUTIONS PER PROTOCOL, WILL MONITOR.
[2022-01-28] MEDS: VANCOMYCIN 1.5 GM in IV D5W 500ml IV SCH (23:00)
--- NOTE | 2022-01-28 23:28 | NUR ---
MS/TELE/RN VANCOMYCIN TROUGH= 23, VANCOMYCIN DUE AT 2300 NOT ADMINISTERED.
[2022-01-29] MEDS: HYDROMORPHONE 1 MG/1 ML DISP.SYRIN SQ PRN ×4 (04:09→21:40)
[2022-01-29] MEDS: oxyCODONE IR immediate release 5 MG PO PRN ×5 (05:29→20:10)
[2022-01-29 06:15] LABS: BASOPHILS # (AUTO) 0.1 K/uL (0.0-0.2); BASOPHILS % (AUTO) 0.8 % (0.0-2.0); EOSINOPHILS % (AUTO) 5.1 % (0.0-6.0); HEMATOCRIT 22 % (33-45); HEMOGLOBIN 7.4 g/dL (11.5-14.8); LYMPHOCYTES # (AUTO) 1.5 K/uL (0.8-4.8); MEAN CORPUSCULAR HGB CONC 33 g/dl (31.0-36.0); MEAN CORPUSCULAR VOLUME 76 fL (82-100); MONOCYTES # (AUTO) 0.7 K/uL (0.1-1.30); NEUTROPHILS # (AUTO) 4.2 K/uL (1.8-8.9); NEUTROPHILS % (AUTO) 61.1 % (43.0-81.0); PLATELET COUNT (AUTO) 270 K/uL (150-450); RED BLOOD CELL COUNT(AUTO) 2.95 MIL/uL (4.0-5.2); WHITE BLOOD COUNT (AUTO) 6.8 K/uL (4.3-11.0)
--- NOTE | 2022-01-29 06:43 | NUR ---
MS/TELE/RN PATIENT IS AWAKE, DOING CELLPHONE, PER PATIENT HER PAIN IS TOLERABLE, NO SIGNS OF DISTRESS NOTED, CALL LIGHT IN REACH, ALL NEEDS ATTENDED AT THIS TIME, WILL CONTINUE TO MONITOR.
[2022-01-29 06:47] LABS: CALCIUM, SERUM 8.3 mg/dL (8.5-10.1); CREATININE 1.5 mg/dL (0.6-1.3); POTASSIUM 4.3 mmol/L (3.5-5.1)
[2022-01-29 06:55] LABS: ALBUMIN 2.5 g/dL (3.4-5.0); BILIRUBIN,TOTAL 0.2 mg/dL (0.2-1.0); TOTAL PROTEIN, SERUM 5.9 g/dL (6.4-8.2)
[2022-01-29 08:00] VITALS: BP 127/79
[2022-01-29] MEDS: ASPIRIN 325 MG TABLET PO SCH (08:59)
[2022-01-29] MEDS: DRONABINOL (2.5 MG) 2.5 MG CAPSULE PO SCH ×2 (08:59→18:54)
[2022-01-29] MEDS: DOCUSATE SODIUM 100 MG CAPSULE PO SCH ×2 (08:59→18:54)
[2022-01-29] MEDS: GABAPENTIN 300 MG CAPSULE PO SCH ×3 (09:00→18:54)
[2022-01-29] MEDS: hydrALAZINE HCL 50 MG TABLET PO SCH ×3 (09:00→17:00)
[2022-01-29] MEDS: CLONIDINE HCL 0.1 MG TABLET PO SCH ×3 (09:00→18:54)
[2022-01-29] MEDS: FAMOTIDINE (20 MG) 20 MG TABLET PO SCH (09:00)
[2022-01-29] MEDS: CEFEPIME 2 GM in IV D5W 100 ML IV SCH (09:00)
[2022-01-29] MEDS: METOPROLOL SUCCINATE 50 MG TAB.SR.24H PO SCH (09:00)
[2022-01-29] MEDS: SOD FERRIC GLUC 125 MG in IV NS 0.9% 100 ML IV SCH (14:44)
[2022-01-29 16:00] VITALS: BP 143/65
--- NOTE | 2022-01-29 18:00 | NUR ---
telephone quotation clerk light freq,med x2 with dilaudid and x3 with oxir.
[2022-01-29] MEDS: ZOSYN IVPB 3.375 G in IV D5W 50ml IV SCH (19:01)
[2022-01-29] MEDS: ATORVASTATIN 10 MG TABLET PO SCH (19:02)
--- NOTE | 2022-01-29 19:30 | NUR ---
RN CLOSING NOTE PATIENT IN BED, AWAKE. PATIENT IS A/O X 4 ABLE TO MAKE NEEDS KNOWN. PATIENT COMPLAINING OF PAIN ON R KNEE, WILL MANAGE APPROPRIATELY. PATIENT HAS A WOUND VAC PLACED AT 125 MM HG CONTINUOUSLY, DRESSING C/D/I, DRAINING BLOOD TINGED FLUID. PATIENT ALSO HAS A HENDERSON CATHETER DRAINING VIA GRAVITY. AMOR PICC LINE SALINE LOCKED AT THIS TIME. SAFETY MEASURES IN PLACE: BED LOCKED AND IN LOWEST POSITION, CALL LIGHT WITHIN REACH, SIDE RAILS UP. WILL MONITOR PATIENT CLOSELY. Addendum: 01/29/22 at 2023 by MIC MOREJON RN OPENING NOTE
[2022-01-29 20:00] VITALS: BP 151/75
--- NOTE | 2022-01-29 20:10 | NUR ---
OXY IR GIVEN FOR PAIN ON R KNEE, WILL REASSESS MED EFFECTIVENESS AT A LATER TIME.
--- NOTE | 2022-01-29 21:45 | NUR ---
PATIENT GIVEN DILAUDID IV, PATIENT STATES HER PAIN 10/10. WILL REASSESS PATIENT'S PAIN AT A LATER TIME.
[2022-01-29] MEDS ORDERED: VANCOMYCIN 1.25 GM in IV D5W 250 ML IV SCH (23:00)
[2022-01-30] MEDS: ZOSYN IVPB 3.375 G in IV D5W 50ml IV SCH ×4 (00:51→18:42)
[2022-01-30] MEDS: oxyCODONE IR immediate release 5 MG PO PRN ×7 (00:52→23:14)
--- NOTE | 2022-01-30 00:52 | NUR ---
RN NOTE PATIENT GIVEN OXY IR FOR PAIN ON THE R KNEE
[2022-01-30] MEDS: HYDROMORPHONE 1 MG/1 ML DISP.SYRIN SQ PRN ×5 (04:22→18:38)
--- NOTE | 2022-01-30 04:25 | NUR ---
RN NOTE PATIENT GIVEN DILAUDID 1 MG, FOR R LEG/KNEE PAIN. WILL REASSESS AT LATER TIME.
--- NOTE | 2022-01-30 05:31 | NUR ---
RN NOTE GIVEN OXY IR FOR PAIN 02/20. WILL REASSESS PATIENT'S PAIN AT A LATER TIME.
--- NOTE | 2022-01-30 06:33 | NUR ---
RN CLOSING NOTE PATIENT IN BED, EYES CLOSED, PATIENT EASILY AWAKENED. PATIENT IS A/O X 4 ABLE TO MAKE NEEDS KNOWN. PATIENT RECENTLY GIVEN OXY IR, PAIN DECREASED ON R KNEE. OUTPUT 50 ML ON THE WOUND VAC. WOUND VAC PLACED AT 125 MM HG CONTINUOUSLY, DRESSING C/D/I, DRAINING BLOOD TINGED FLUID. PATIENT ALSO HAS A HENDERSON CATHETER DRAINING VIA GRAVITY. AMOR PICC LINE SALINE LOCKED AT THIS TIME. SAFETY MEASURES IN PLACE: BED LOCKED AND IN LOWEST POSITION, CALL LIGHT WITHIN REACH, SIDE RAILS UP. ALL NEEDS MET AND ATTENDED. ALL ORDERS CARRIED OUT. PAIN MANAGED APPROPRIATELY. WILL ENDORSE PATIENT TO DAY SHIFT NURSE FOR MARC.
--- NOTE | 2022-01-30 07:30 | NUR ---
MS RN OPENING NOTES RECEIVED PATIENT RESTING IN BED AWAKE, ALERT. PATIENT IS ORIENTED X4 AND STABLE ON ROOM AIR. NO S/S OF SOB OR DISTRESS NOTED. VS STABLE PER PATIENT. WOUND VAC PLACED AT 125 MM HG CONTINUOUSLY, DRESSING C/D/I, DRAINING BLOOD TINGED FLUID. PATIENT ALSO HAS A HENDERSON CATHETER DRAINING VIA GRAVITY URINE YELLOW IN COLOR AND CLEAR. AMOR PICC LINE SALINE LOCKED AT THIS TIME, PATENT AND FLUSHES. SAFETY MEASURES IN PLACE: BED LOCKED AND IN LOWEST POSITION, CALL LIGHT WITHIN REACH, SIDE RAILS UP X2. WILL CONTINUE TO MONITOR.
[2022-01-30 07:32] LABS: ALBUMIN 2.4 g/dL (3.4-5.0); BILIRUBIN,TOTAL 0.2 mg/dL (0.2-1.0); CALCIUM, SERUM 8.7 mg/dL (8.5-10.1); CREATININE 1.1 mg/dL (0.6-1.3); POTASSIUM 5.1 mmol/L (3.5-5.1); TOTAL PROTEIN, SERUM 5.7 g/dL (6.4-8.2)
--- NOTE | 2022-01-30 07:49 | NUR ---
RN NOTES PATIENT COMPLAINED OF PAIN 10/10, PRN DILAUDID GIVEN AT 0749. WILL CONTINUE TO MONITOR AND ASSESS.
[2022-01-30 07:53] LABS: BASOPHILS % (AUTO) 0.7 % (0.0-2.0); EOSINOPHILS % (AUTO) 6.1 % (0.0-6.0); HEMATOCRIT 24 % (33-45); HEMOGLOBIN 7.5 g/dL (11.5-14.8); LYMPHOCYTES # (AUTO) 1.7 K/uL (0.8-4.8); LYMPHOCYTES % (AUTO) 25.7 % (20.0-44.0); MEAN CORPUSCULAR HGB CONC 32 g/dl (31.0-36.0); MEAN CORPUSCULAR VOLUME 78 fL (82-100); MONOCYTES # (AUTO) 0.8 K/uL (0.1-1.30); MONOCYTES % (AUTO) 12.8 % (2.0-12.0); NEUTROPHILS # (AUTO) 3.6 K/uL (1.8-8.9); NEUTROPHILS % (AUTO) 54.7 % (43.0-81.0); PLATELET COUNT (AUTO) 281 K/uL (150-450); RED BLOOD CELL COUNT(AUTO) 3.08 MIL/uL (4.0-5.2); WHITE BLOOD COUNT (AUTO) 6.5 K/uL (4.3-11.0)
[2022-01-30 08:33] VITALS: BP 162/86
--- NOTE | 2022-01-30 09:53 | NUR ---
RN NOTES PATIENT COMPLAINED OF PAIN 02/20, PRN oXYCODONE GIVEN AT 0953. WILL CONTINUE TO MONITOR AND ASSESS.
[2022-01-30] MEDS: CLONIDINE HCL 0.1 MG TABLET PO SCH ×3 (09:54→16:35)
[2022-01-30] MEDS: METOPROLOL SUCCINATE 50 MG TAB.SR.24H PO SCH (09:54)
[2022-01-30] MEDS: FAMOTIDINE (20 MG) 20 MG TABLET PO SCH (09:54)
[2022-01-30] MEDS: DRONABINOL (2.5 MG) 2.5 MG CAPSULE PO SCH ×2 (09:54→16:34)
[2022-01-30] MEDS: GABAPENTIN 300 MG CAPSULE PO SCH ×3 (09:54→16:34)
[2022-01-30] MEDS: hydrALAZINE HCL 50 MG TABLET PO SCH ×3 (09:55→16:35)
[2022-01-30] MEDS: DOCUSATE SODIUM 100 MG CAPSULE PO SCH ×2 (09:55→16:34)
[2022-01-30] MEDS: ASPIRIN 325 MG TABLET PO SCH (09:55)
[2022-01-30] MEDS ORDERED: FERR325T23 PO (10:05)
[2022-01-30] MEDS ORDERED: DRONABINOL PO (10:05)
--- NOTE | 2022-01-30 11:48 | NUR ---
RN NOTES PATIENT COMPLAINED OF PAIN 10/10, PRN DILAUDID GIVEN AT 1148. WILL CONTINUE TO MONITOR AND ASSESS.
--- NOTE | 2022-01-30 13:33 | NUR ---
RN NOTES PATIENT COMPLAINED OF PAIN 02/20, PRN OXYCODONE GIVEN AT 1333. WILL CONTINUE TO MONITOR AND ASSESS.
--- NOTE | 2022-01-30 15:02 | NUR ---
RN NOTES PATIENT COMPLAINED OF PAIN 04/23, PRN DILAUDID GIVEN AT 1502. WILL CONTINUE TO MONITOR AND ASSESS.
[2022-01-30] MEDS: SOD FERRIC GLUC 125 MG in IV NS 0.9% 100 ML IV SCH (15:48)
--- NOTE | 2022-01-30 16:35 | NUR ---
RN NOTES PATIENT COMPLAINED OF PAIN, PRN OXYCODONE GIVEN AT 1635. WILL CONTINUE TO MONITOR AND ASSESS.
[2022-01-30 16:40] VITALS: BP 127/64
[2022-01-30] MEDS: ATORVASTATIN 10 MG TABLET PO SCH (18:36)
--- NOTE | 2022-01-30 18:38 | NUR ---
RN NOTES PATIENT COMPLAINED OF PAIN 10/10, PRN DILAUDID GIVEN AT 1838. WILL CONTINUE TO MONITOR AND ASSESS.
--- NOTE | 2022-01-30 19:33 | NUR ---
MS RN CLOSING NOTES PATIENT SLEEPING IN BED, ALERT, AT BEDSIDE. PATIENT IS ORIENTED X4 AND STABLE ON ROOM AIR. NO S/S OF SOB OR DISTRESS NOTED. VS STABLE PER PATIENT. WOUND VAC PLACED AT 125 MM HG CONTINUOUSLY 150 ML OUTPUT, DRESSING C/D/I, DRAINING BLOOD TINGED FLUID. PATIENT ALSO HAS A HENDERSON CATHETER DRAINING VIA GRAVITY URINE YELLOW IN COLOR AND CLEAR DRAINED 700 ML. AMOR PICC LINE SALINE LOCKED AT THIS TIME, PATENT AND FLUSHES. SAFETY MEASURES MAINTAINED: BED LOCKED AND IN LOWEST POSITION, CALL LIGHT WITHIN REACH, SIDE RAILS UP. ENDORSED TO NEXT SHIFT ANY MARC.
--- NOTE | 2022-01-30 19:33 | NUR ---
RN OPENING NOTE PATIENT IN BED, AWAKE, AT BEDSIDE. PATIENT IS A/O X 4 ABLE TO MAKE NEEDS KNOWN. WOUND VAC ON R KNEE PLACED AT 125 MM HG CONTINUOUSLY, DRESSING C/D/I, DRAINING BLOOD TINGED FLUID. PATIENT ALSO HAS A HENDERSON CATHETER DRAINING VIA GRAVITY. AMOR PICC LINE SALINE LOCKED AT THIS TIME. SAFETY MEASURES IN PLACE: BED LOCKED AND IN LOWEST POSITION, CALL LIGHT WITHIN REACH, SIDE RAILS UP. WILL MONITOR PATIENT CLOSELY
[2022-01-30 20:00] VITALS: BP 111/66
--- NOTE | 2022-01-30 20:10 | NUR ---
RN NOTE PATIENT GIVEN OXY IR FOR PAIN ON R KNEE, WILL REASSESS PAIN AT A LATER TIME
--- NOTE | 2022-01-30 23:14 | NUR ---
RN NOTE OXY IR GIVEN FOR PAIN ON R KNEE. WILL REASSESS AT A LATER TIME
[2022-01-31] MEDS: ZOSYN IVPB 3.375 G in IV D5W 50ml IV SCH ×5 (00:17→23:30)
[2022-01-31] MEDS: HYDROMORPHONE 1 MG/1 ML DISP.SYRIN SQ PRN ×4 (00:17→12:17)
--- NOTE | 2022-01-31 00:17 | NUR ---
RN NOTE DILAUDID 1 MG GIVEN FOR SEVERE PAIN ON R KNEE/LEG, WILL REASSESS PATIENT'S PAIN LEVEL AT A LATER TIME.
[2022-01-31] MEDS: oxyCODONE IR immediate release 5 MG PO PRN ×4 (02:14→15:52)
--- NOTE | 2022-01-31 02:14 | NUR ---
RN NOTE ADMINISTERED OXY IR FOR PAIN ON R KNEE, WILL REASSESS PAIN AT A LATER TIME
--- NOTE | 2022-01-31 03:25 | NUR ---
RN NOTE DILAUDID 1 MG GIVEN FOR SEVERE PAIN ON R KNEE/LEG, WILL REASSESS PATIENT'S PAIN LEVEL AT A LATER TIME.
--- NOTE | 2022-01-31 05:38 | NUR ---
RN NOTE ADMINISTERED OXY IR FOR PAIN ON R KNEE, WILL REASSESS PAIN AT A LATER TIME
[2022-01-31 06:37] LABS: BASOPHILS # (AUTO) 0.1 K/uL (0.0-0.2); BASOPHILS % (AUTO) 0.9 % (0.0-2.0); EOSINOPHILS % (AUTO) 6.4 % (0.0-6.0); HEMATOCRIT 23 % (33-45); HEMOGLOBIN 7.5 g/dL (11.5-14.8); LYMPHOCYTES # (AUTO) 1.9 K/uL (0.8-4.8); LYMPHOCYTES % (AUTO) 26.5 % (20.0-44.0); MEAN CORPUSCULAR HGB CONC 33 g/dl (31.0-36.0); MEAN CORPUSCULAR VOLUME 77 fL (82-100); MONOCYTES # (AUTO) 0.9 K/uL (0.1-1.30); MONOCYTES % (AUTO) 12.7 % (2.0-12.0); NEUTROPHILS # (AUTO) 3.8 K/uL (1.8-8.9); NEUTROPHILS % (AUTO) 53.5 % (43.0-81.0); PLATELET COUNT (AUTO) 314 K/uL (150-450); WHITE BLOOD COUNT (AUTO) 7.2 K/uL (4.3-11.0)
--- NOTE | 2022-01-31 06:42 | NUR ---
RN CLOSING NOTE PATIENT IN BED, EYES CLOSED EASILY AWAKENED. PATIENT IS A/O X 4 ABLE TO MAKE NEEDS KNOWN. PATIENT COMPLAINING OF 10/10 PAIN ON R KNEE, DILAUDID 1 MG GIVEN. WOUND VAC ON R KNEE PLACED AT 125 MM HG CONTINUOUSLY, DRESSING C/D/I, DRAINING BLOOD TINGED FLUID. CANISTER CHANGED (450 TOTAL), 100 ML OUTPUT DURING THE SHIFT. PATIENT ALSO HAS A HENDERSON CATHETER DRAINING VIA GRAVITY. AMOR PICC LINE SALINE LOCKED AT THIS TIME. SAFETY MEASURES IN PLACE: BED LOCKED AND IN LOWEST POSITION, CALL LIGHT WITHIN REACH, SIDE RAILS UP. ALL NEEDS MET AND ATTENDED. ALL ORDERS CARRIED OUT. WILL ENDORSE TO DAY SHIFT NURSE FOR MARC
--- NOTE | 2022-01-31 07:25 | NUR ---
MS RN OPENING NOTE RECEIVED PT IN BED ASLEEP, EASILY AROUSED. A/O X4, ABLE TO MAKE NEEDS KNOWN. ON RA, TOLERATING WELL. BREATHING UNLABORED AND NOT IN ANY SIGN OF RESPIRATORY DISTRESS. PT HAS A AMOR PICCLINE SALINE LOCK, INTACT AND PATENT. RIGHT KNEE WOUND WITH WOUND VAC IN PLACE AT 125 MMHG. HENDERSON CATH IN PLACE AND DRAINING WELL. SAFE MEASURE IN PLACE: BED IN LOWEST AND LOCKED POSITION, SIDE RAILS UP X2, CALL LIGHT WITHIN REACH. WILL CONTINUE TO MONITOR PT.
[2022-01-31 07:28] LABS: CALCIUM, SERUM 8.8 mg/dL (8.5-10.1); CREATININE 1.3 mg/dL (0.6-1.3); POTASSIUM 4.6 mmol/L (3.5-5.1)
[2022-01-31 07:34] LABS: ALBUMIN 2.4 g/dL (3.4-5.0); BILIRUBIN,TOTAL 0.2 mg/dL (0.2-1.0); TOTAL PROTEIN, SERUM 6.1 g/dL (6.4-8.2)
[2022-01-31 08:00] VITALS: BP 124/74
[2022-01-31] MEDS: CLONIDINE HCL 0.1 MG TABLET PO SCH ×3 (09:17→18:06)
[2022-01-31] MEDS: ASPIRIN 325 MG TABLET PO SCH (09:17)
[2022-01-31] MEDS: hydrALAZINE HCL 50 MG TABLET PO SCH ×3 (09:17→18:06)
[2022-01-31] MEDS: DOCUSATE SODIUM 100 MG CAPSULE PO SCH ×2 (09:17→18:05)
[2022-01-31] MEDS: DRONABINOL (2.5 MG) 2.5 MG CAPSULE PO SCH ×2 (09:17→18:06)
[2022-01-31] MEDS: GABAPENTIN 300 MG CAPSULE PO SCH ×3 (09:17→18:05)
[2022-01-31] MEDS: FAMOTIDINE (20 MG) 20 MG TABLET PO SCH (09:18)
[2022-01-31] MEDS: METOPROLOL SUCCINATE 50 MG TAB.SR.24H PO SCH (09:18)
--- NOTE | 2022-01-31 10:32 | NUR ---
WOUND CARE FOLLOW UP: PT SEEN FOR WOUND VAC DRESSING CHANGE TO RT KNEE. RT KNEE WOUND MEASURES 10.5CM X 7.5CM BY 4CM DEPTH. THERE IS RED GRANULATION TISSUE EXCEPT FOR AREA ON RT SIDE OF KNEE WITH SOME BROWN NECROTIC TISSUE AND DEPTH OF 4CM. DRAINAGE IS SEROSANGUINOUS, SMALL AMOUNT WITHOUT ODOR. LAKSHMI INTACT SUPERIORLY AND DISTALLY. DISCUSSED WITH PLASTIC SURGERY P.A. AND MSG LEFT FOR ORTHO P.A. REGARDING WOUND BED CHANGES. WOUND VAC HELD AT THIS TIME FOR SURGICAL TEAMS TO EXAMINE WOUND. DEEPER AREA OF WOUND ON RT SIDE OF KNEE WAS PACKED GENTLY WITH SALINE MOISTENED KERLIX, XEROFORM PLACED ON LAKSHMI AND ON GRANULATION TISSUE, COVERED WITH GAUZE, ABD PADS AND SECURED WITH KERLIX. PT TOLERATED WELL. CANISTER WAS DISCARDED WITH 30CC PINK/RED DRAINAGE. PER RN, PREVIOUS CANISTER WAS FULL (500cc) AND WAS DISCARDED ON WAREHOUSE PROCESSOR. WILL FOLLOW. Addendum: 01/31/22 at 1042 by CHASE FRANZ WNDNU DR LEWIS EXAMINED PT DURING RT KNEE DRESSING CHANGE.
[2022-01-31] MEDS ORDERED: METHADONE HCL 10 MG TABLET PO ONE ×2 (14:30→22:00)
[2022-01-31] MEDS ORDERED: ONDANSETRON HCL/PF 4 MG/2 ML VIAL IV PRN (14:30)
[2022-01-31] MEDS: SOD FERRIC GLUC 125 MG in IV NS 0.9% 100 ML IV SCH (14:37)
[2022-01-31 16:00] VITALS: BP 122/85
--- NOTE | 2022-01-31 16:14 | NUR ---
SS received consult for pt. requesting POA. SW met with pt. and provided her with DPOA packet. GENTRY educated pt. on the packet and gave pt. the Notary's number once packet is completed.
[2022-01-31] MEDS: ATORVASTATIN 10 MG TABLET PO SCH (18:05)
--- NOTE | 2022-01-31 19:27 | NUR ---
MS RN CLOSING NOTE PT AWAKE IN BED TALKING ON HER CELL PHONE. A/O X4, ABLE TO MAKE NEEDS KNOWN. ON RA, TOLERATING WELL. BREATHING UNLABORED AND NOT IN ANY SIGN OF RESPIRATORY DISTRESS. PT'S AMOR PICCLINE SALINE LOCK, INTACT AND PATENT. HENDERSON CATH IN PLACE AND DRAINING WELL. ALL NEEDS ATTENDED. KEPT CLEAN AND COMFORTABLE. SAFETY MEASURE IN PLACE: BED IN LOWEST AND LOCKED POSITION, SIDE RAILS UP X2, CALL LIGHT WITHIN REACH. ENDORSED TO COUNTRY SINGER NURSE FOR MARC.
[2022-01-31] MEDS: DAKINS QUARTER STRENGTH (0.125%) 480 ML BOTTLE TOP SCH (19:32)
--- NOTE | 2022-01-31 19:50 | NUR ---
MS RN OPENING NOTES RECEIVED PATIENT RESTING IN BED COMFORTABLY; A/OX2-3, BREATHING EVEN AND UNLABORED; NO SOB NOTED; TOLERATING ROOM AIR WELL; PATIENT ABLE TO MAKE NEEDS KNOWN; AMOR PICC S/L PRESENT; INTACT AND PATENT; HENDERSON CATH PRESENT, WITH YELLOW OUTPUT NOTED; SAFETY PRECAUTIONS IMPLEMENTED; BED LOCKED IN LOW POSITION; SIDE RAILSX2; CALL LIGHT WITHIN REACH; WILL CONT PLAN OF CARE
[2022-01-31 20:00] VITALS: BP 138/78
[2022-01-31 22:00] VITALS: BP 138/78
--- NOTE | 2022-01-31 22:28 | NUR ---
MS RN NOTES PATIENT REPORTING NO PAIN AT THIS TIME; PATIENT WOULD LIKE TO WAIT TO TAKE SCHEDULED METHADONE; PATIENT WAS ADVISED THAT WE ARE UNABLE TO HOLD MEDICATION PASSED MIDNIGHT, WILL CHECK ON PATIENT AT THAT TIME TO SEE IF SHE DOES NOT REQUIRE PAIN MANAGEMENT, PATIENT AWARE OF PRN PAIN MEDICATION IF NEEDED PAIN MANAGEMENT AFTER MIDNIGHT; WILL MONITOR
--- NOTE | 2022-01-31 23:16 | NUR ---
CONSULTING SERVICES MANAGER NOTES PATIENT VERBALIZED SHE DOES NOT NEED/WANT METHADONE PAIN MEDICATION; CHARGE NURSE AWARE Addendum: 01/31/22 at 2317 by ONOFRE YANG RN MS MCKEON NOTES
[2022-02-01] MEDS: oxyCODONE IR immediate release 5 MG PO PRN ×7 (00:47→21:40)
--- NOTE | 2022-02-01 00:47 | NUR ---
MS RN NOTES PATIENT REQUESTING OXY-IR MEDICATION FOR PAIN MANAGEMENT; PATIENT COMPLAINT OF R LEG PAIN; VSS; OXY-IR MED ADMINISTERED PER MD ORDER;
[2022-02-01] MEDS: HYDROMORPHONE 1 MG/1 ML DISP.SYRIN SQ PRN ×4 (03:16→19:57)
--- NOTE | 2022-02-01 03:55 | NUR ---
MS RN NOTE PATIENT AWARE IF BLOOD PRESSURE IS LOW, UNABLE TO ADMINISTER PAIN MED AT THAT TIME; PATIENT IS ALSO REQUESTING FOR BLOOD PRESSURE TO BE MONITORED [id number] DUE TO CONSTANT NEED OF PAIN MANAGEMENT; WILL CONT TO MONITOR
--- NOTE | 2022-02-01 04:23 | NUR ---
MS RN NOTE PATIENT COMPLAINT OF 6/10 R LEG PAIN; VITALS 149/77, HR: 77 RESPIRATION: 20 SPO2: 99%, VSS; OXY-IR ADMINISTERED PER MD ORDER; PATIENT VERBALIZED IF SHE IS SLEEPING AFTER PAIN MEDICATION LET HER SLEEP AND DO NOT WAKE HER UP; WILL CONT TO ASSESS/MONITOR
[2022-02-01] MEDS: ZOSYN IVPB 3.375 G in IV D5W 50ml IV SCH ×3 (05:03→18:14)
[2022-02-01 06:39] LABS: BASOPHILS % (AUTO) 0.8 % (0.0-2.0); EOSINOPHILS % (AUTO) 6.9 % (0.0-6.0); HEMATOCRIT 23 % (33-45); HEMOGLOBIN 7.6 g/dL (11.5-14.8); LYMPHOCYTES # (AUTO) 1.4 K/uL (0.8-4.8); LYMPHOCYTES % (AUTO) 23.1 % (20.0-44.0); MEAN CORPUSCULAR HGB CONC 32 g/dl (31.0-36.0); MEAN CORPUSCULAR VOLUME 77 fL (82-100); MONOCYTES # (AUTO) 0.7 K/uL (0.1-1.30); NEUTROPHILS # (AUTO) 3.5 K/uL (1.8-8.9); NEUTROPHILS % (AUTO) 57.2 % (43.0-81.0); PLATELET COUNT (AUTO) 348 K/uL (150-450); RED BLOOD CELL COUNT(AUTO) 3.04 MIL/uL (4.0-5.2)
[2022-02-01 07:03] LABS: ALBUMIN 2.4 g/dL (3.4-5.0); BILIRUBIN,TOTAL 0.2 mg/dL (0.2-1.0); CALCIUM, SERUM 8.9 mg/dL (8.5-10.1); CREATININE 1.2 mg/dL (0.6-1.3); POTASSIUM 4.3 mmol/L (3.5-5.1)
--- NOTE | 2022-02-01 07:28 | NUR ---
WOUND CARE FOLLOW UP: DISCUSSED RT KNEE WOUND WITH PLASTIC SURGERY TEAM CURRENTLY ON CASE. WOUND VAC DISCONTINUED AND NEW TREATMENT ORDERS IN PLACE PER PLASTICS. PT NOTED TO HAVE STRIKETHROUGH SEROSANGUINOUS DRAINAGE ON RT KNEE DRESSING THIS AM. DRESSING WAS REINFORCED WITH GAUZE, ABD PADS AND KERLIX WRAP. PT TOLERATED WELL. MD IN AGREEMENT WITH PLAN OF CARE.
--- NOTE | 2022-02-01 07:35 | NUR ---
MS RN CLOSING NOTES PATIENT RESTING IN BED COMFORTABLY; A/OX2-3, WOUND NURSE AT BEDSIDE; BREATHING EVEN AND UNLABORED; NO SOB NOTED; TOLERATING ROOM AIR WELL; PATIENT ABLE TO MAKE NEEDS KNOWN; AMOR PICC S/L PRESENT; INTACT AND PATENT; HENDERSON CATH PRESENT, WITH YELLOW OUTPUT NOTED; SPOKE WITH DR. MARINELLI REGARDING PATIENT PAIN MANAGEMENT THROUGHOUT SHIFT; ALL NEEDS RENDERED; SAFETY PRECAUTIONS IMPLEMENTED; BED LOCKED IN LOW POSITION; SIDE RAILSX2; CALL LIGHT WITHIN REACH; WILL CONT PLAN OF CARE
--- NOTE | 2022-02-01 07:54 | NUR ---
RN OPENING NOTE PATIENT AWAKE IN BED RESTING, A/O X 3. 8/10 PAIN NOTED AT THIS TIME, PAIN MEDICATION GIVEN. ON ROOM AIR, NO DISTRESS OR SHORTNESS OF BREATH NOTED. IV ACCESS AMOR PICC LINE, INTACT, PATENT AND FLUSHING WELL. PATIENT HAVE HENDERSON CATHETER IN PLACE AND DRAINING WELL. FALL AND SAFETY MEASURES IN PLACE, BED IN LOW AND LOCK POSITION, CALL LIGHT AND TABLE WITHIN EASY REACH, SIDE RAILS UP X2. WILL CONTINUE TO MONITOR.
[2022-02-01 08:00] VITALS: BP 151/100
[2022-02-01] MEDS: CLONIDINE HCL 0.1 MG TABLET PO SCH ×3 (09:16→17:00)
[2022-02-01] MEDS: DRONABINOL (2.5 MG) 2.5 MG CAPSULE PO SCH ×2 (09:16→21:35)
[2022-02-01] MEDS: GABAPENTIN 300 MG CAPSULE PO SCH ×3 (09:16→18:10)
[2022-02-01] MEDS: DOCUSATE SODIUM 100 MG CAPSULE PO SCH ×2 (09:16→18:09)
[2022-02-01] MEDS: METOPROLOL SUCCINATE 50 MG TAB.SR.24H PO SCH (09:16)
[2022-02-01] MEDS: hydrALAZINE HCL 50 MG TABLET PO SCH ×3 (09:17→17:00)
[2022-02-01] MEDS: ASPIRIN 325 MG TABLET PO SCH (09:17)
[2022-02-01] MEDS: FAMOTIDINE (20 MG) 20 MG TABLET PO SCH (09:21)
[2022-02-01] MEDS ORDERED: METHADONE HCL 10 MG TABLET PO ONE (11:00)
[2022-02-01] MEDS: DAKINS QUARTER STRENGTH (0.125%) 480 ML BOTTLE TOP SCH (11:51)
[2022-02-01 16:00] VITALS: BP 120/78
[2022-02-01] MEDS: METHADONE HCL 10 MG TABLET PO SCH (18:09)
[2022-02-01] MEDS: ATORVASTATIN 10 MG TABLET PO SCH (18:10)
--- NOTE | 2022-02-01 19:40 | NUR ---
MS RN OPENING NOTE RECEIVED PATIENT IN BED, A/OX4. AT BEDSIDE. NO S/S OF APPARENT DISTRESS IN ROOM AIR. HYPER FIXATED IN HER PAIN, C/O 10/10 PAIN IN HER R. KNEE-- WILL MEDICATE. R. KNEE DRESSING NOTED TO BE CLEAN, DRY, AND INTACT. HENDERSON CATH NOTED IN PLACE DRAINING CLEAR, YELLOW URINE. NO FLUIDS RUNNING AT THIS TIME. RE-ORIENTED AND ENCOURAGED WITH THE USE OF CALL LIGHT. SAFETY IN PLACE, WILL CONTINUE WITH PLAN OF CARE FOR PATIENT.
--- NOTE | 2022-02-01 19:43 | NUR ---
RN CLOSING NOTE PATIENT AWAKE IN BED RESTING, A/O X 3. NO S/S PAIN NOTED AT THIS TIME. ON ROOM AIR, NO DISTRESS OR SHORTNESS OF BREATH NOTED. IV ACCESS AMOR PICC LINE, INTACT, PATENT AND FLUSHING WELL. PATIENT HAVE HENDERSON CATHETER IN PLACE AND DRAINING WELL, OUTPUT 900ML. FALL AND SAFETY MEASURES IN PLACE, BED ALARM ON, BED IN LOW AND LOCK POSITION, CALL LIGHT AND TABLE WITHIN EASY REACH, SIDE RAILS UP X2. WILL ENDORSE TO GORE MAKER.
[2022-02-01 19:57] VITALS: BP 131/62
[2022-02-02] MEDS: ZOSYN IVPB 3.375 G in IV D5W 50ml IV SCH ×4 (00:17→17:31)
[2022-02-02] MEDS: oxyCODONE IR immediate release 5 MG PO PRN ×6 (00:41→19:28)
--- NOTE | 2022-02-02 04:41 | NUR ---
MS RN NOTE DOCTOR YVES CAME IN TO SEE PATIENT. PER DR. MARINELLI HE WILL BE CHANGING THE DILAUDID SQ TO IV Q4 ONLY FOR BREAKTHROUGH PAIN. DR. MARINELLI ALSO CHANGED OXY IR TO 40 MG Q3.
[2022-02-02] MEDS: HYDROMORPHONE 1 MG/1 ML DISP.SYRIN IV PRN ×4 (05:08→21:47)
[2022-02-02 06:10] LABS: CALCIUM, SERUM 8.8 mg/dL (8.5-10.1); CREATININE 1.3 mg/dL (0.6-1.3); POTASSIUM 4.1 mmol/L (3.5-5.1)
[2022-02-02] MEDS: METHADONE HCL 10 MG TABLET PO SCH ×2 (06:10→17:31)
[2022-02-02 06:16] LABS: ALBUMIN 2.6 g/dL (3.4-5.0); BASOPHILS # (AUTO) 0.1 K/uL (0.0-0.2); BILIRUBIN,TOTAL 0.2 mg/dL (0.2-1.0); EOSINOPHILS % (AUTO) 6.1 % (0.0-6.0); HEMATOCRIT 24 % (33-45); HEMOGLOBIN 7.7 g/dL (11.5-14.8); LYMPHOCYTES # (AUTO) 1.8 K/uL (0.8-4.8); LYMPHOCYTES % (AUTO) 28.8 % (20.0-44.0); MEAN CORPUSCULAR HGB CONC 32 g/dl (31.0-36.0); MEAN CORPUSCULAR VOLUME 78 fL (82-100); MONOCYTES # (AUTO) 0.8 K/uL (0.1-1.30); MONOCYTES % (AUTO) 12.6 % (2.0-12.0); NEUTROPHILS # (AUTO) 3.3 K/uL (1.8-8.9); NEUTROPHILS % (AUTO) 51.5 % (43.0-81.0); PLATELET COUNT (AUTO) 368 K/uL (150-450); RED BLOOD CELL COUNT(AUTO) 3.08 MIL/uL (4.0-5.2); TOTAL PROTEIN, SERUM 6.2 g/dL (6.4-8.2); WHITE BLOOD COUNT (AUTO) 6.4 K/uL (4.3-11.0)
--- NOTE | 2022-02-02 06:17 | NUR ---
MS RN NOTE PATIENT REQUEST FOR HER DIET TO BE CHANGED TO REGULAR. CHARGE NURSE REJI SAID IT IS OKAY TO CHANGE TO REGULAR SINCE PATIENT IS JUST HERE FOR HER KNEE. DIET CHANGED.
--- NOTE | 2022-02-02 07:50 | NUR ---
RN OPENING NOTE PATIENT AWAKE IN BED RESTING, A/O X 3-4. NO S/S OF PAIN NOTED AT THIS TIME. ON ROOM AIR, NO DISTRESS OR SHORTNESS OF BREATH NOTED. IV ACCESS AMOR PICC LINE, INTACT, PATENT AND FLUSHING WELL. PATIENT HAVE HENDERSON CATHETER IN PLACE AND DRAINING WELL. FALL AND SAFETY MEASURES IN PLACE, BED ALARM ON, BED IN LOW AND LOCK POSITION, CALL LIGHT AND TABLE WITHIN EASY REACH, SIDE RAILS UP X2. WILL CONTINUE TO MONITOR.
[2022-02-02 08:00] VITALS: BP 129/58
[2022-02-02] MEDS: GABAPENTIN 300 MG CAPSULE PO SCH ×3 (08:34→17:30)
[2022-02-02] MEDS: DOCUSATE SODIUM 100 MG CAPSULE PO SCH ×2 (08:34→17:30)
[2022-02-02] MEDS: FAMOTIDINE (20 MG) 20 MG TABLET PO SCH (08:35)
[2022-02-02] MEDS: ASPIRIN 325 MG TABLET PO SCH (08:35)
[2022-02-02] MEDS: METOPROLOL SUCCINATE 50 MG TAB.SR.24H PO SCH (08:50)
[2022-02-02] MEDS: DAKINS QUARTER STRENGTH (0.125%) 480 ML BOTTLE TOP SCH (08:50)
[2022-02-02] MEDS: CLONIDINE HCL 0.1 MG TABLET PO SCH ×3 (08:51→17:00)
[2022-02-02] MEDS: hydrALAZINE HCL 50 MG TABLET PO SCH ×3 (08:51→17:00)
[2022-02-02 16:06] VITALS: BP 146/75
[2022-02-02] MEDS: ATORVASTATIN 10 MG TABLET PO SCH (17:30)
--- NOTE | 2022-02-02 18:33 | NUR ---
RN CLOSING NOTE PATIENT AWAKE IN BED RESTING, A/O X 3-4. NO S/S OF PAIN NOTED AT THIS TIME. ON ROOM AIR, NO DISTRESS OR SHORTNESS OF BREATH NOTED. IV ACCESS AMOR PICC LINE, INTACT, PATENT AND FLUSHING WELL. PATIENT HAVE HENDERSON CATHETER IN PLACE AND DRAINING WELL. PATIENT DID NOT TAKE HER LAST DOSE OF HER BLOOD PRESSURE MEDICATIONS, PATIENT SAID SHE WANTED TO WAIT UNTIL BP IS TAKEN AGAIN AT NIGHT TO DECIDED IF SHE WILL TAKE HER BP MEDICATIONS. FALL AND SAFETY MEASURES IN PLACE, BED ALARM ON, BED IN LOW AND LOCK POSITION, CALL LIGHT AND TABLE WITHIN EASY REACH, SIDE RAILS UP X2. WILL ENDORSE TO SENIOR NETWORK ADMINISTRATOR.
--- NOTE | 2022-02-02 19:30 | NUR ---
MS RN OPENING NOTE RECEIVED PATIENT IN BED, A/OX4. NO S/S OF APPARENT DISTRESS IN ROOM AIR. C/O 10/ THROBBING PAIN IN HER RIGHT KNEE-- MEDICATED. HENDERSON CATHETER NOTED IN PLACE DRAINING CLEAR, YWLLOE URINE. NO FLUIDS RUNNING AT THIS TIME. ORIENTED WITH THE USE OF CALL LIGHT. SAFETY IN PLACE WILL CONTINUE WITH PLAN OF CARE FOR PATIENT.
[2022-02-02 20:00] VITALS: BP 142/79
--- NOTE | 2022-02-02 21:04 | NUR ---
MS RN NOTE PATIENT STILL HYPERFIXATED WITH HER PAIN. ASKING FOR HER DILAUDID NOW THAT IS NOT YET DUE. ASKING ME TO WRITE THE TIME FOR HER NEXT PAIN MEDICATION DUE. PATIENT REMINDED ABOUT WHAT DR. MARINELLI SAID TO HER TO NOT TRACK TIME FOR THE PAIN MEDICATIONS. PATIENT TEACHING DONE. PATIENT PASSIVE ABOUT TEACHING.
[2022-02-02] MEDS: DRONABINOL (2.5 MG) 2.5 MG CAPSULE PO SCH (21:47)
[2022-02-03] MEDS: ZOSYN IVPB 3.375 G in IV D5W 50ml IV SCH ×5 (00:15→23:22)
[2022-02-03] MEDS: oxyCODONE IR immediate release 5 MG PO PRN ×5 (00:19→19:54)
[2022-02-03] MEDS: METHADONE HCL 10 MG TABLET PO SCH ×2 (06:48→17:50)
--- NOTE | 2022-02-03 07:04 | NUR ---
MS RN CLOSING NOTE PATIENT IN BED, A/OX4. NO S/S OF APPARENT DISTRESS IN ROOM AIR. PAIN MANAGED WITH MEDICATIONS. NO FLUIDS RUNNING AT THIS TIME. NEEDS ATTENDED. ALL SCHEDULED MEDICATION ADMINISTERED. SAFETY KEPT IN PLACE THE WHOLE SHIFT. REPORT GIVEN TO ABE FOR CONTINUITY OF CARE.
--- NOTE | 2022-02-03 07:40 | NUR ---
RN OPENING NOTE PATIENT IN BED, A/OX4. C/O 03/23 THROBBING PAIN IN HER RIGHT KNEE-- RECENTLY RECEIVED METHADONE FROM PHOEBE RN, HENDERSON CATHETER NOTED IN PLACE DRAINING CLEAR, YLW URINE. NO IVF RUNNING AT THIS TIME. SAFETY MEASURES IN PLACE WILL CONTINUE WITH PLAN OF CARE FOR PATIENT./ MONITOR / ASSIST
[2022-02-03] MEDS: HYDROMORPHONE 1 MG/1 ML DISP.SYRIN IV PRN ×4 (07:51→21:14)
[2022-02-03 08:00] VITALS: BP 152/74
[2022-02-03] MEDS: DOCUSATE SODIUM 100 MG CAPSULE PO SCH ×2 (08:21→16:46)
[2022-02-03] MEDS: FAMOTIDINE (20 MG) 20 MG TABLET PO SCH (08:22)
[2022-02-03] MEDS: hydrALAZINE HCL 50 MG TABLET PO SCH ×4 (08:22→16:56)
[2022-02-03] MEDS: CLONIDINE HCL 0.1 MG TABLET PO SCH ×4 (08:22→16:56)
[2022-02-03] MEDS: GABAPENTIN 300 MG CAPSULE PO SCH ×3 (08:22→16:47)
[2022-02-03] MEDS: ASPIRIN 325 MG TABLET PO SCH (08:23)
[2022-02-03] MEDS: DAKINS QUARTER STRENGTH (0.125%) 480 ML BOTTLE TOP SCH (08:23)
[2022-02-03] MEDS: METOPROLOL SUCCINATE 50 MG TAB.SR.24H PO SCH (08:23)
[2022-02-03 16:00] VITALS: BP 131/55
[2022-02-03] MEDS: ATORVASTATIN 10 MG TABLET PO SCH (17:49)
--- NOTE | 2022-02-03 18:33 | NUR ---
RN CLOSING NOTE PATIENT IN BED, A/OX4. COMFORTABLE THIS SHIFT BY ALTERNATING ALL ANALGESICS THROUGHOUT. PT STATES " I FEEL MUCH BETTER" HENDERSON CATHETER NOTED IN PLACE DRAINING CLEAR, YLW URINE. PICC LINE AMOR, NO IVF RUNNING AT THIS TIME. SAFETY MEASURES IN PLACE WILL CONTINUE WITH PLAN OF CARE FOR PATIENT./ MONITOR / ASSIST
--- NOTE | 2022-02-03 19:15 | NUR ---
RN NOTE RECEIVED PT RESTING IN BED, EASILY AROUSABLE TO STIMULI. A/OX4. NO C/O PAIN AT THIS TIME. IV ACCESS: AMOR PICC LINE INTACT/PATENT/FLUSHES WELL. F/C IN PLACE, DRAINING CLEAR YELLOW URINE. PT IN NO ACUTE DISTRESS. SAFETY MEASURES IN PLACE. WILL CONT TO MONITOR.
[2022-02-03 20:00] VITALS: BP 129/69
[2022-02-03] MEDS: DRONABINOL (2.5 MG) 2.5 MG CAPSULE PO SCH (21:13)
[2022-02-04] MEDS: oxyCODONE IR immediate release 5 MG PO PRN ×6 (02:48→21:13)
[2022-02-04] MEDS: HYDROMORPHONE 1 MG/1 ML DISP.SYRIN IV PRN ×6 (03:35→20:11)
[2022-02-04] MEDS: ZOSYN IVPB 3.375 G in IV D5W 50ml IV SCH ×4 (06:03→23:56)
[2022-02-04] MEDS: METHADONE HCL 10 MG TABLET PO SCH ×2 (06:30→18:40)
--- NOTE | 2022-02-04 07:30 | NUR ---
RN OPENING NOTE PATIENT IN BED, A/OX4. ON RA TOLERATING WELL, DENIES SOB, PT IS ABLE TO VERBALIZE NEEDS. PT C/O 04/23 THROBBING PAIN IN HER RIGHT KNEE- RECENTLY RECEIVED METHADONE AND PRN PAIN MEDS FROM NOC RN, HENDERSON CATHETER NOTED IN PLACE DRAINING CLEAR, YLW URINE. RU PIC, NO IVF RUNNING AT THIS TIME. SAFETY MEASURES IN PLACE- CALL LIGHT WITHIN REACH, BED IN LOCKED POSITION, SIDE RAILS UP X3. WILL CONTINUE WITH PLAN OF CARE FOR PATIENT AND WILL CONTINUE TO MONITOR.
[2022-02-04 08:00] VITALS: BP 136/70
[2022-02-04] MEDS: ASPIRIN 325 MG TABLET PO SCH (08:48)
[2022-02-04] MEDS: CLONIDINE HCL 0.1 MG TABLET PO SCH ×3 (09:32→16:31)
[2022-02-04] MEDS: hydrALAZINE HCL 50 MG TABLET PO SCH ×3 (09:33→16:33)
[2022-02-04] MEDS: METOPROLOL SUCCINATE 50 MG TAB.SR.24H PO SCH (09:33)
[2022-02-04] MEDS: FAMOTIDINE (20 MG) 20 MG TABLET PO SCH (09:33)
[2022-02-04] MEDS: GABAPENTIN 300 MG CAPSULE PO SCH ×3 (09:34→16:34)
[2022-02-04] MEDS: DOCUSATE SODIUM 100 MG CAPSULE PO SCH ×2 (09:34→16:33)
--- NOTE | 2022-02-04 10:14 | NUR ---
WOUND CARE FOLLOW UP: PT SEEN FOR WOUND VAC APPLICATION TO RT KNEE. WOUND MEASURES 11CM X 8CM X 3.5CM AND IS RED IN COLOR WITH DEEPER AREA AT MEDIAL KNEE (3.5CM DEPTH) AND SMALL AREA OF PINK/YELLOW TISSUE TO MEDIAL WOUND EDGE. DRAINAGE IS SMALL AMOUNT SEROSANGUINOUS, NO ODOR. PERIWOUND IS CLEAR WITH SLIGHT SWELLING AND LAKSHMI TO SUPERIOR AND INFERIOR AREAS. SKIN PREP AND VAC DRAPE WAS USED TO PERIWOUND AREAS, GRANUFOAM TO WOUND (2 PIECES) AND VAC AT 125mmHg CONTINUOUS SETTING. PT TOLERATED WELL. DISCUSSED SKIN PROTECTION AND WOUND TREATMENT WITH NURSING STAFF AND PLASTIC SURGERY TEAM. MD IN AGREEMENT WITH PLAN OF CARE.
[2022-02-04] MEDS: DAKINS QUARTER STRENGTH (0.125%) 480 ML BOTTLE TOP SCH (10:34)
[2022-02-04] MEDS: ATORVASTATIN 10 MG TABLET PO SCH (17:29)
--- NOTE | 2022-02-04 18:25 | NUR ---
RN CLOSING NOTE PATIENT IN BED, A/OX4. ON RA TOLERATING WELL, DENIES SOB. PT IS ABLE TO VERBALIZE NEEDS. PT PAIN IS UNDER CONTROL AT THIS TIME. HENDERSON CATHETER NOTED IN PLACE DRAINING CLEAR, YLW URINE. RU PICC, IVPB ZOSYN ADMINISTERED FOR AM AND PM. SAFETY MEASURES IN PLACE- CALL LIGHT WITHIN REACH, BED IN LOCKED POSITION, SIDE RAILS UP X3. WILL ENDORSE TO PM SHIFT.
--- NOTE | 2022-02-04 19:15 | NUR ---
RN NOTE PT AWAKE IN BED, A/OX4. NO C/O PAIN AT THIS TIME. IV ACCESS: AMOR PICC LINE INTACT/PATENT/FLUSHES WELL. R-KNEE DRESSING IN PLACE, C/D/I. F/C DRAINING CLEAR YELLOW URINE. PT IN NO ACUTE DISTRESS. SAFETY MEASURES IN PLACE. WILL CONT TO MONITOR.
[2022-02-04 20:05] VITALS: BP 135/63
[2022-02-04] MEDS: DRONABINOL (2.5 MG) 2.5 MG CAPSULE PO SCH (21:16)
[2022-02-05] MEDS: HYDROMORPHONE 1 MG/1 ML DISP.SYRIN IV PRN ×6 (00:03→21:46)
[2022-02-05] MEDS: oxyCODONE IR immediate release 5 MG PO PRN ×6 (01:03→23:18)
[2022-02-05] MEDS: ZOSYN IVPB 3.375 G in IV D5W 50ml IV SCH ×4 (05:23→23:19)
[2022-02-05] MEDS: METHADONE HCL 10 MG TABLET PO SCH ×2 (06:23→18:23)
[2022-02-05 06:27] LABS: BASOPHILS % (AUTO) 0.9 % (0.0-2.0); EOSINOPHILS % (AUTO) 4.6 % (0.0-6.0); HEMATOCRIT 25 % (33-45); LYMPHOCYTES # (AUTO) 1.6 K/uL (0.8-4.8); LYMPHOCYTES % (AUTO) 28.1 % (20.0-44.0); MEAN CORPUSCULAR HGB CONC 32 g/dl (31.0-36.0); MEAN CORPUSCULAR VOLUME 78 fL (82-100); MONOCYTES # (AUTO) 0.7 K/uL (0.1-1.30); MONOCYTES % (AUTO) 11.8 % (2.0-12.0); NEUTROPHILS # (AUTO) 3.1 K/uL (1.8-8.9); NEUTROPHILS % (AUTO) 54.6 % (43.0-81.0); PLATELET COUNT (AUTO) 373 K/uL (150-450); RED BLOOD CELL COUNT(AUTO) 3.27 MIL/uL (4.0-5.2); WHITE BLOOD COUNT (AUTO) 5.7 K/uL (4.3-11.0)
[2022-02-05 06:50] LABS: CALCIUM, SERUM 9.1 mg/dL (8.5-10.1); CREATININE 1.3 mg/dL (0.6-1.3); MAGNESIUM 1.7 mg/dL (1.8-2.4); PHOSPHORUS 4.1 mg/dL (2.5-4.9); POTASSIUM 3.9 mmol/L (3.5-5.1)
--- NOTE | 2022-02-05 07:00 | NUR ---
RN NOTE PT SLEPT INTERMITTENTLY DURING THE NIGHT. PAIN WELL MANAGED WITH ALTERNATE PAIN MEDS DILAUDID AND OXY IR. R-KNEE DRESSING C/D/I WITH WOUND VAC IN PLACE @125MMHG. PT IN NO ACUTE DISTRESS. ALL NEEDS ATTENDED TO.
--- NOTE | 2022-02-05 08:00 | NUR ---
MS RN OPENING NOTE RECEIVED PT IN BED AWAKE. A/O X4, ABLE TO MAKE NEEDS KNOWN. ON RA, TOLERATING WELL. BREATHING EVEN AND UNLABORED. NOT IN ANY SIGN OF DISTRESS. PT HAS PICC LINE IN AMOR, INTACT AND PATENT. HENDERSON CATH IN PLACE AND DRAINING WELL. SAFETY MEASURES IN PLACE: BED IN LOWEST AND LOCKED POSITION, SIDE RAILS UPX2, AND CALL LIGHT WITHIN REACH. WILL CONTINUE TO MONITOR PT.
[2022-02-05] MEDS: CLONIDINE HCL 0.1 MG TABLET PO SCH ×3 (08:47→17:00)
[2022-02-05] MEDS: DOCUSATE SODIUM 100 MG CAPSULE PO SCH (08:47)
[2022-02-05] MEDS: ASPIRIN 325 MG TABLET PO SCH (08:47)
[2022-02-05] MEDS: FAMOTIDINE (20 MG) 20 MG TABLET PO SCH (08:47)
[2022-02-05] MEDS: hydrALAZINE HCL 50 MG TABLET PO SCH ×3 (08:47→17:00)
[2022-02-05] MEDS: GABAPENTIN 300 MG CAPSULE PO SCH ×3 (08:48→17:14)
[2022-02-05] MEDS: METOPROLOL SUCCINATE 50 MG TAB.SR.24H PO SCH (08:48)
[2022-02-05] MEDS: Magnesium 1GM/D5W 100ML PREMIX 100 ML IV SCH ×2 (09:19→10:32)
[2022-02-05] MEDS: DAKINS QUARTER STRENGTH (0.125%) 480 ML BOTTLE TOP SCH (09:24)
[2022-02-05] MEDS: ATORVASTATIN 10 MG TABLET PO SCH (17:14)
--- NOTE | 2022-02-05 17:24 | NUR ---
RN NOTE CLONIDINE AND HYDRALAZINE BP MEDICATIONS SCHEDULED AT 1700 REFUSED BY PT. EXPLAINED RISK AND BENEFITS, PT STILL STRONGLY REFUSED.
--- NOTE | 2022-02-05 19:15 | NUR ---
MS RN NOTES RECEIVED ON BED A/O X4, NO SOB,S/P RIGHT TOTAL KNEE REPLACEMENT ON 12/13,DRESSING WITH WOUND VAC IN PLACE AT 125MMHG,DRAINING SEROUS OUTPUT.SWELLING LESSEN ACCORDING TO PATIENT.WITH EHNDERSON CATH IN PLACE DRAINING YELLOWISH URINE OUTPUT.WITH RIGHT UPPER ARM PICC LINE FOR MEDS. AT BEDSIDE.STILL IN PAIN DESPITE DILAUDID IV GIVEN AT 1718,WILL MEDICATE.CALL LIGHT IN REACH,NEEDS ANTICIPATED.
--- NOTE | 2022-02-05 19:24 | NUR ---
MS RN CLOSING NOTE PT IN BED AWAKE. A/O X4, ABLE TO MAKE NEEDS KNOWN. ON RA, TOLERATING WELL. BREATHING EVEN AND UNLABORED. NOT IN ANY SIGN OF DISTRESS. PT HAS PICC LINE IN AMOR, INTACT AND PATENT. HENDERSON CATH IN PLACE AND DRAINING WELL. ALL NEEDS ATTENDED. KEPT CLEAN AND COMFORTABLE. SAFETY MEASURES IN PLACE: BED IN LOWEST AND LOCKED POSITION, SIDE RAILS UPX2, AND CALL LIGHT WITHIN REACH. ENDORSED TO DISHROOM ATTENDANT NURSE FOR MARC.
--- NOTE | 2022-02-05 19:35 | NUR ---
MS RN NOTES PAIN MANAGEMENT C/O RIGHT KNEE PAIN 7/10 ON PAIN SCALE,OXY IR 40MG PO GIVEN PER PATIENT REQUEST.VITAL SIGNS STABLE.WILL MONITOR FOR OVERSEDATION.
[2022-02-05 20:00] VITALS: BP 130/63
--- NOTE | 2022-02-05 21:46 | NUR ---
MS RN NOTES PAIN MANAGEMENT AWAKE,HAVING PAIN ON RIGHT KNEE 8/10 ON PAIN SCALE, DILAUDID 1MG IV GIVEN ORDERED.VITAL SIGNS STABLE.
[2022-02-05] MEDS: DRONABINOL (2.5 MG) 2.5 MG CAPSULE PO SCH (21:58)
--- NOTE | 2022-02-05 23:18 | NUR ---
MS RN NOTES AWAKE,WATCHING TV PROGRAM,C/O RIGHT KNEE PAIN 7/10 ON PAIN SCALE,OXY IR 40MG PO GIVEN ORDERED.
[2022-02-06] MEDS: HYDROMORPHONE 1 MG/1 ML DISP.SYRIN IV PRN ×6 (02:47→21:33)
--- NOTE | 2022-02-06 02:47 | NUR ---
MS RN NOTES AWAKE,IN PAIN,8/10 ON PAIN SCALE,DILAUDID 1MG IV GIVEN BY JAYCOB ORDERED.
[2022-02-06] MEDS: oxyCODONE IR immediate release 5 MG PO PRN ×8 (03:52→23:15)
--- NOTE | 2022-02-06 03:52 | NUR ---
MS RN NOTES STILL IN PAIN,OXY IR 40MG PO GIVEN PER PATIENT REQUEST.VITAL SIGNS STABLE
[2022-02-06] MEDS: ZOSYN IVPB 3.375 G in IV D5W 50ml IV SCH ×4 (05:31→23:05)
--- NOTE | 2022-02-06 06:00 | NUR ---
MS RN NOTES AWAKE,REQUESTED TO REPOSITION RIGHT LEG,PILLOW UNDER RIGHT THIGH,CANT TOLERATE PAIN.
[2022-02-06] MEDS: METHADONE HCL 10 MG TABLET PO SCH ×2 (06:03→17:23)
--- NOTE | 2022-02-06 06:17 | NUR ---
MS RN NOTES C/O RIGHT KNEE PAIN 9/10 ON PAIN SCALE,DILAUDID 1MG IV GIVEN ORDERED.
--- NOTE | 2022-02-06 06:54 | NUR ---
MS RN NOTES STILL ON EXCRUCIATING PAIN,OXY IR 40MG PO GIVEN PER PATIENT REQUEST.
--- NOTE | 2022-02-06 07:30 | NUR ---
MS RN OPENING NOTES RECEIVED PT IN BED AWAKE. A/O X4, ABLE TO MAKE NEEDS KNOWN. ON RA, TOLERATING WELL. BREATHING EVEN AND UNLABORED. NOT IN ANY SIGN OF DISTRESS. PT HAS PICC LINE IN AMOR, INTACT AND PATENT. HENDERSON CATH IN PLACE AND DRAINING WELL. SAFETY MEASURES IN PLACE: BED IN LOWEST AND LOCKED POSITION, SIDE RAILS UPX2, AND CALL LIGHT WITHIN REACH. WILL CONTINUE TO MONITOR PT.
[2022-02-06] MEDS: hydrALAZINE HCL 50 MG TABLET PO SCH ×3 (09:00→17:00)
[2022-02-06] MEDS: METOPROLOL SUCCINATE 50 MG TAB.SR.24H PO SCH (09:00)
[2022-02-06] MEDS: DOCUSATE SODIUM 100 MG CAPSULE PO SCH (09:00)
[2022-02-06] MEDS: CLONIDINE HCL 0.1 MG TABLET PO SCH ×3 (09:00→17:00)
[2022-02-06] MEDS: ASPIRIN 325 MG TABLET PO SCH (09:42)
[2022-02-06] MEDS: FAMOTIDINE (20 MG) 20 MG TABLET PO SCH (09:43)
[2022-02-06] MEDS: GABAPENTIN 300 MG CAPSULE PO SCH ×3 (09:43→17:08)
[2022-02-06] MEDS: DAKINS QUARTER STRENGTH (0.125%) 480 ML BOTTLE TOP SCH (09:45)
[2022-02-06 09:47] LABS: CALCIUM, SERUM 9.1 mg/dL (8.5-10.1); CREATININE 1.3 mg/dL (0.6-1.3); MAGNESIUM 2.1 mg/dL (1.8-2.4); POTASSIUM 3.8 mmol/L (3.5-5.1)
--- NOTE | 2022-02-06 13:38 | NUR ---
MS RN NOTES OXR IR WAS NEVER ADMINISTERED @ 9644, MEDICATIONS WERE RETURN TO [facility] CELL & WITNESSED BY ANOTHER LINDA PRATT.
[2022-02-06] MEDS: ATORVASTATIN 10 MG TABLET PO SCH (17:23)
--- NOTE | 2022-02-06 19:30 | NUR ---
RN OPENING NOTE PATIENT IN BED AWAKE, PATIENT'S AT BEDSIDE. A/O X 4, ABLE TO MAKE NEEDS KNOWN. PATIENT ON RA, NO RESPIRATORY DISTRESS NOTED. PATIENT HAS A R KNEE WOUND WITH WOUND VAC PRESENT DRAINING BLOOD TINGED FLUID. PATIENT HAS A HENDERSON CATHETER IN PLACE, DRAINING VIA GRAVITY. PATIENT HAS A AMOR PICC LINE PATENT AND INTACT, ON SALINE LOCK AT THIS TIME. PATIENT WAS GIVEN OXY IR RECENTLY. SAFETY MEASURES IN PLACE: BED LOCKED AND IN LOWEST POSITION, CALL LIGHT WITHIN REACH, SIDE RAILS UP. WILL MONITOR PATIENT CLOSELY.
--- NOTE | 2022-02-06 19:58 | NUR ---
MS RN CLOSING NOTES PT IN BED AWAKE. A/O X4, ABLE TO MAKE NEEDS KNOWN. ON RA, TOLERATING WELL. BREATHING EVEN AND UNLABORED. NOT IN ANY SIGN OF DISTRESS. PT HAS PICC LINE IN AMOR, INTACT AND PATENT. HENDERSON CATH IN PLACE AND DRAINING WELL. SAFETY MEASURES IN PLACE: BED IN LOWEST AND LOCKED POSITION, SIDE RAILS UPX2, AND CALL LIGHT WITHIN REACH. WILL ENDORSE TO INCOMING SHIFT FOR MARC.
[2022-02-06 20:00] VITALS: BP 136/75
--- NOTE | 2022-02-06 21:37 | NUR ---
RN NOTE PATIENT GIVEN DILAUDID 1 MG, PATIENT COMPLAINING OF 9/10 PAIN. PATIENT DID NOT WANT THE MARINOL AT THIS TIME. TO BE GIVEN AT A LATER TIME, RETURNED MED AT [facility] WITH 2ND RN.
[2022-02-06] MEDS: DRONABINOL (2.5 MG) 2.5 MG CAPSULE PO SCH (22:00)
--- NOTE | 2022-02-06 23:12 | NUR ---
PATIENT ASKED IF SHE WANTED THE MARINOL AT 2300, PATIENT AGREED AND WANTED IT. WHEN BROUGHT MED TO THE ROOM, PATIENT CHANGED HER MIND AND REFUSED IT. THIS IS THE SECOND TIME MED IS RETURNED, 2ND RN PRESENT AND WITNESSED.
[2022-02-07] MEDS: oxyCODONE IR immediate release 5 MG PO PRN ×7 (03:08→22:27)
[2022-02-07] MEDS: HYDROMORPHONE 1 MG/1 ML DISP.SYRIN IV PRN ×6 (04:09→21:22)
[2022-02-07] MEDS: ZOSYN IVPB 3.375 G in IV D5W 50ml IV SCH ×3 (05:27→18:21)
[2022-02-07] MEDS: METHADONE HCL 10 MG TABLET PO SCH ×2 (05:30→18:20)
--- NOTE | 2022-02-07 06:50 | NUR ---
RN CLOSING NOTE PATIENT IN BED AWAKE. A/O X 4, ABLE TO MAKE NEEDS KNOWN. PATIENT ON RA, NO RESPIRATORY DISTRESS NOTED. PATIENT HAS A R KNEE WOUND WITH WOUND VAC PRESENT DRAINING BLOOD TINGED FLUID. PATIENT HAS A HENDERSON CATHETER IN PLACE, DRAINING VIA GRAVITY. PATIENT HAS A AMOR PICC LINE PATENT AND INTACT, ON SALINE LOCK AT THIS TIME. PATIENT WAS GIVEN DILAUDID AT 2133, 0409 AND OXY IR AT 2315, 0308, AND 0640 TO MANAGE PAIN ON R KNEE. PATIENT ALSO WAS GIVEN METHADONE, VSS. SAFETY MEASURES IN PLACE: BED LOCKED AND IN LOWEST POSITION, CALL LIGHT WITHIN REACH, SIDE RAILS UP. ALL NEEDS MET AND ATTENDED. ALL ORDERS CARRIED OUT. WILL ENDORSE TO DAY SHIFT NURSE FOR MARC.
--- NOTE | 2022-02-07 07:30 | NUR ---
MS RN OPENING NOTE RECEIVED PATIENT IN BED AWAKE, A/O X 4, ABLE TO MAKE NEEDS KNOWN. PATIENT ON RA, TOLERATING WELL. NO SOB/DISTRESS NOTED. PATIENT HAS A R KNEE WOUND WITH WOUND VAC PRESENT DRAINING BLOOD TINGED FLUID. PATIENT HAS A HENDERSON CATHETER IN PLACE, DRAINING CLEAR YELLOW URINE VIA GRAVITY. PATIENT HAS A AMOR PICC LINE PATENT AND INTACT, ON SALINE LOCK AT THIS TIME. SAFETY MEASURES IN PLACE: BED LOCKED AND IN LOWEST POSITION, CALL LIGHT WITHIN REACH, SIDE RAILS UP. WILL CONTINUE TO MONITOR.
--- NOTE | 2022-02-07 07:46 | NUR ---
WOUND CARE CONSULT/FOLLOW UP: PT SEEN FOR AREA OF RED RASH WITH MOISTURE ASSOCIATED OPEN SKIN TO GLUTEAL CREASE. RECOMMENDATIONS MADE FOR SKIN PROTECTION AND CARE. DISCUSSED WITH NURSING STAFF. PT IS ON CONG ISOFLEX LOW AIRLOSS BED. PT DEMONSTRATES ABILITY TO TURN AND REPOSITION IN BED WITH MINIMAL ASSISTANCE. MD IN AGREEMENT WITH PLAN OF CARE. WOUND VAC DRESSING CHANGE IS SCHEDULED FOR TODAY. SMALL AMOUNT DARK RED DRAINAGE IN VAC CANISTER. Addendum: 02/07/22 at 0748 by CHASE FRANZ WNDNU Amended: Links added.
[2022-02-07] MEDS: FAMOTIDINE (20 MG) 20 MG TABLET PO SCH (08:13)
[2022-02-07] MEDS: ASPIRIN 325 MG TABLET PO SCH (08:13)
[2022-02-07] MEDS: GABAPENTIN 300 MG CAPSULE PO SCH ×3 (08:13→16:15)
[2022-02-07] MEDS: hydrALAZINE HCL 50 MG TABLET PO SCH ×3 (08:13→17:00)
[2022-02-07] MEDS: CLONIDINE HCL 0.1 MG TABLET PO SCH ×3 (08:14→17:00)
[2022-02-07] MEDS: METOPROLOL SUCCINATE 50 MG TAB.SR.24H PO SCH (08:14)
[2022-02-07] MEDS: DOCUSATE SODIUM 100 MG CAPSULE PO SCH (08:21)
[2022-02-07] MEDS: CLOTRIMAZOLE 1% 15 GM TUBE TP SCH ×2 (09:56→18:23)
[2022-02-07] MEDS: DAKINS QUARTER STRENGTH (0.125%) 480 ML BOTTLE TOP SCH (09:57)
[2022-02-07] MEDS: Z GUARD REMEDY 4 OZ OINT TP SCH (14:28)
[2022-02-07] MEDS: ATORVASTATIN 10 MG TABLET PO SCH (18:22)
--- NOTE | 2022-02-07 19:33 | NUR ---
MS RN CLOSING NOTE PATIENT IN BED AWAKE, A/O X 4, ABLE TO MAKE NEEDS KNOWN. PATIENT ON RA, TOLERATING WELL. NO SOB/DISTRESS NOTED. PAIN MANAGEMENT ADEQUATE. PATIENT HAS A R KNEE WOUND WITH WOUND VAC PRESENT DRAINING BLOOD TINGED FLUID. PATIENT HAS A HENDERSON CATHETER IN PLACE, DRAINING CLEAR YELLOW URINE VIA GRAVITY. PATIENT HAS A AMOR PICC LINE PATENT AND INTACT, ON SALINE LOCK AT THIS TIME. SAFETY MEASURES IN PLACE: BED LOCKED AND IN LOWEST POSITION, CALL LIGHT WITHIN REACH, SIDE RAILS UP, WILL ENDORSE TO PM SHIFT.
--- NOTE | 2022-02-07 19:35 | NUR ---
RN NOTE PT AWAKE IN BED, A/OX4. RESPIRATIONS EVEN/UNLABORED. PAIN WELL MANAGED WITH PRN PAIN MEDS ORDERED. WITH WOUND VAC TO R-KNEE FUNCTIONING WELL. WITH F/C DRAINING CLEAR YELLOW URINE. IV ACCESS: AMOR PICC LINE INTACT/PATENT/FLUSHES WELL. PT IN NO ACUTE DISTRESS. SAFETY MEASURES IN PLACE. WILL CONT TO MONITOR.
[2022-02-07 20:00] VITALS: BP 124/72
[2022-02-07] MEDS: DRONABINOL (2.5 MG) 2.5 MG CAPSULE PO SCH (21:22)
[2022-02-08] MEDS: ZOSYN IVPB 3.375 G in IV D5W 50ml IV SCH ×5 (00:19→23:46)
[2022-02-08] MEDS: oxyCODONE IR immediate release 5 MG PO PRN ×7 (01:41→22:31)
[2022-02-08] MEDS: HYDROMORPHONE 1 MG/1 ML DISP.SYRIN IV PRN ×5 (02:27→21:12)
[2022-02-08] MEDS: METHADONE HCL 10 MG TABLET PO SCH ×2 (05:30→17:24)
--- NOTE | 2022-02-08 07:06 | NUR ---
RN NOTE PT RESTING IN BED, EASILY AROUSABLE TO STIMULI. A/OX4. NO SOB. PAIN WELL CONTROLLED WITH ALTERNATING PRN PAIN MEDS. WOUND VAC TO R-KNEE FUNCTIONING WELL. PT SLEPT INTERMITTENTLY DURING THE NIGHT. NO ACUTE DISTRESS NOTED. SAFETY MEASURES MAINTAINED.
[2022-02-08] MEDS: METOPROLOL SUCCINATE 50 MG TAB.SR.24H PO SCH (07:53)
[2022-02-08] MEDS: ASPIRIN 325 MG TABLET PO SCH (07:53)
[2022-02-08] MEDS: FAMOTIDINE (20 MG) 20 MG TABLET PO SCH (07:53)
[2022-02-08 08:00] VITALS: BP 142/86
[2022-02-08] MEDS: CLONIDINE HCL 0.1 MG TABLET PO SCH ×3 (08:05→17:00)
[2022-02-08] MEDS: hydrALAZINE HCL 50 MG TABLET PO SCH ×3 (08:06→17:00)
[2022-02-08] MEDS: DOCUSATE SODIUM 100 MG CAPSULE PO SCH (08:07)
--- NOTE | 2022-02-08 09:15 | NUR ---
MS RN NOTE SEEN BY WOUND CARE NURSE CHASE
[2022-02-08] MEDS: GABAPENTIN 300 MG CAPSULE PO SCH ×3 (09:21→17:18)
--- NOTE | 2022-02-08 10:04 | NUR ---
WOUND CARE FOLLOW UP: PT WAS SEEN YESTERDAY FOR WOUND VAC DRESSING CHANGE TO RT KNEE. 2 PIECES OF GRANUFOAM WERE USED AND SKIN PREP AND VAC DRAPE TO PERIWOUND AREA. VAC AT 125mmHg CONTINUOUS SETTING. 300cc DARK RED DRAINAGE IN CANISTER. WILL FOLLOW.
--- NOTE | 2022-02-08 10:12 | NUR ---
MS RN NOTE PATIENT SEEN BY GAGAN YUN.
[2022-02-08] MEDS: Z GUARD REMEDY 4 OZ OINT TP PRN ×3 (10:43→10:50)
[2022-02-08] MEDS: CLOTRIMAZOLE 1% 15 GM TUBE TP SCH ×2 (10:44→17:51)
[2022-02-08] MEDS: DAKINS QUARTER STRENGTH (0.125%) 480 ML BOTTLE TOP SCH (10:45)
[2022-02-08] MEDS: Z GUARD REMEDY 4 OZ OINT TP SCH (10:51)
[2022-02-08 16:00] VITALS: BP 121/70
[2022-02-08] MEDS: ATORVASTATIN 10 MG TABLET PO SCH (17:26)
--- NOTE | 2022-02-08 18:49 | NUR ---
MS RN CLOSING NOTE PATIENT IN BED AWAKE, A/O X 4, ABLE TO MAKE NEEDS KNOWN. PATIENT ON RA, TOLERATING WELL. NO SOB/DISTRESS NOTED. WITH RIGHT UPPER ARM PICC LINE, PATENT AND INTACT. PATIENT HAS A R KNEE WOUND WITH WOUND VAC PRESENT DRAINING SERO SANGUINOUS DRAINAGE. PATIENT WITH HENDERSON CATHETER IN PLACE WITH CLEAR YELLOW URINE VIA GRAVITY. SAFETY MEASURES IN PLACE: BED LOCKED AND IN LOWEST POSITION, CALL LIGHT WITHIN REACH, SIDE RAILS UP. WILL ENDORSE PATIENT FOR CONTINUITY OF CARE.
--- NOTE | 2022-02-08 19:30 | NUR ---
RN OPENING NOTES RECEIVED PT IN BED, AWAKE. AOx4, ABLE TO MAKE NEEDS KNOWN. ON RA AND TOLERATING WELL. NO SOB NOTED. NO S/SX OF RESPIRATORY DISTRESS NOTED. IV ACCESS IN AMOR PICC LINE. IV IS INTACT, PATENT, AND FLUSHING WELL. HENDERSON CATHETER DRAINING CLEAR, YELLOW URINE. SAFETY PRECAUTIONS IN PLACE: BED IN LOWEST, LOCKED POSITION, SIDERAILS UPx2, AND BRAKES ON. TABLE AND CALL LIGHT WITHIN REACH. WILL CONTINUE TO MONITOR.
[2022-02-08 20:00] VITALS: BP 128/70
[2022-02-08] MEDS: DRONABINOL (2.5 MG) 2.5 MG CAPSULE PO SCH (21:11)
--- NOTE | 2022-02-08 21:12 | NUR ---
RN NOTES ADMINISTERED DILAUDID FOR PAIN PER MD ORDER. VS WNL. WILL CONTINUE TO MONITOR.
--- NOTE | 2022-02-08 22:31 | NUR ---
RN NOTES ADMINISTERED OXYCODONE FOR PAIN PER MD ORDER. VS WNL. WILL CONTINUE TO MONITOR.
[2022-02-09] MEDS: oxyCODONE IR immediate release 5 MG PO PRN ×6 (01:17→20:37)
--- NOTE | 2022-02-09 01:18 | NUR ---
RN NOTES ADMINISTERED OXYCODONE FOR PAIN PER MD ORDER. VS WNL. WILL CONTINUE TO MONITOR.
[2022-02-09] MEDS: HYDROMORPHONE 1 MG/1 ML DISP.SYRIN IV PRN ×7 (02:34→21:37)
--- NOTE | 2022-02-09 02:34 | NUR ---
RN NOTES ADMINISTERED DILAUDID FOR PAIN PER MD ORDER. VS WNL. WILL CONTINUE TO MONITOR.
[2022-02-09] MEDS: METHADONE HCL 10 MG TABLET PO SCH ×2 (05:47→17:34)
[2022-02-09] MEDS ORDERED: oxyCODONE IR immediate release 5 MG ONE ×2 (06:02→06:03)
[2022-02-09] MEDS: ZOSYN IVPB 3.375 G in IV D5W 50ml IV SCH ×3 (06:07→17:15)
--- NOTE | 2022-02-09 06:07 | NUR ---
RN NOTES ADMINISTERED OXYCODONE PER MD ORDER. VS WNL. WILL CONTINUE TO MONITOR. HAD TO ACCESS 3 OMNICELLS FOR 40 MG OF OXYCODONE. CHARGE NURSE AWARE.
--- NOTE | 2022-02-09 07:25 | NUR ---
RN CLOSING NOTES PT IN BED, AWAKE. AOx4, ABLE TO MAKE NEEDS KNOWN. ON RA AND TOLERATING WELL. NO SOB NOTED. NO S/SX OF RESPIRATORY DISTRESS NOTED. IV ACCESS IN AMOR PICC LINE. IV IS INTACT, PATENT, AND FLUSHING WELL. HENDERSON CATHETER DRAINING CLEAR, YELLOW URINE. ALL ORDERS CARRIED OUT. ALL NEEDS MET. PT KEPT CLEAN AND DRY. TREATED PAIN THROUGHOUT SHIFT. SAFETY PRECAUTIONS IN PLACE: BED IN LOWEST, LOCKED POSITION, SIDERAILS UPx2, AND BRAKES ON. TABLE AND CALL LIGHT WITHIN REACH. WILL ENDORSE TO ONCOMING SHIFT FOR MARC.
--- NOTE | 2022-02-09 07:30 | NUR ---
MS RN OPENING NOTES RECEIVED PATIENT IN BED, AWAKE. AOx4, ABLE TO VERBALIZED NEEDS. NO SOB OR CARDIAC DISTRESS NOTED,ON ROOM AIR AND TOLERATING WELL. IV ACCESS IN AMOR PICC LINE. IV IS INTACT, PATENT, AND FLUSHING WELL. HENDERSON CATHETER DRAINING CLEAR, YELLOW URINE VIA GRAVITY. SAFETY PRECAUTIONS IN PLACE: BED IN LOWEST, LOCKED POSITION, SIDERAILS UPx2, CALL LIGHT WITHIN REACH. WILL CONTINUE TO MONITOR. KEPT RESTED AND COMFORTABLE.
[2022-02-09] MEDS: GABAPENTIN 300 MG CAPSULE PO SCH ×3 (07:41→16:53)
[2022-02-09] MEDS: ASPIRIN 325 MG TABLET PO SCH (07:42)
[2022-02-09] MEDS: CLONIDINE HCL 0.1 MG TABLET PO SCH ×3 (07:42→17:00)
[2022-02-09] MEDS: hydrALAZINE HCL 50 MG TABLET PO SCH ×3 (07:42→17:00)
[2022-02-09] MEDS: DOCUSATE SODIUM 100 MG CAPSULE PO SCH (07:43)
[2022-02-09] MEDS: METOPROLOL SUCCINATE 50 MG TAB.SR.24H PO SCH (07:43)
[2022-02-09] MEDS: FAMOTIDINE (20 MG) 20 MG TABLET PO SCH (07:43)
[2022-02-09] MEDS: CLOTRIMAZOLE 1% 15 GM TUBE TP SCH ×2 (07:45→17:09)
[2022-02-09] MEDS: DAKINS QUARTER STRENGTH (0.125%) 480 ML BOTTLE TOP SCH (07:45)
[2022-02-09] MEDS: Z GUARD REMEDY 4 OZ OINT TP SCH (07:46)
[2022-02-09 08:00] VITALS: BP 161/75
--- NOTE | 2022-02-09 10:18 | NUR ---
WOUND CARE FOLLOW UP: WOUND VAC TO RT KNEE FUNCTIONING WELL AT 125mmHg CONTINUOUS SETTING. CANISTER CHANGED WITH 300cc DARK RED DRAINAGE. PT STATES MAY BE TRANSFERRED TODAY AND WOULD LIKE TO REST AT THIS TIME. PLAN FOR VAC DRESSING CHANGE TOMORROW. DISCUSSED WITH SURGICAL P.A. CURRENTLY ON CASE.
--- NOTE | 2022-02-09 13:09 | NUR ---
RN NOTES: PATIENT REFUSED TO TAKE HER BLOOD PRESSURE MEDS, EXPLAINED THE RISK AND BENEFITS OF NOT TAKING BP MEDS. PATIENT VERBALIZED UNDERSTANDING.
--- NOTE | 2022-02-09 16:00 | NUR ---
RN NOTES: PATIENT AND ASKING FOR LORAZEPAM PER PATIENT SHE'S HAVING ANXIETY, INFORMED DR MARINELLI PER DR MARINELLI, PENDING RESPONSE.
[2022-02-09] MEDS: ATORVASTATIN 10 MG TABLET PO SCH (17:16)
--- NOTE | 2022-02-09 18:46 | NUR ---
MS RN CLOSING NOTES: PATIENT IN BED, AWAKE. AOx4, ABLE TO VERBALIZED NEEDS. NO SOB OR CARDIAC DISTRESS NOTED,ON ROOM AIR AND TOLERATING WELL. IV ACCESS IN AMOR PICC LINE. IV IS INTACT, PATENT, AND FLUSHING WELL.SALINE LOCKED HENDERSON CATHETER DRAINING CLEAR, YELLOW URINE VIA GRAVITY. NOTED WITH WOUND VACCUUM ON RIGHT KNEE AND VAC FUNCTIONING WELL NOTED WITH BLOODY OUTPUT. PATIENT ON PAIN MANAGEMENT.SAFETY PRECAUTIONS IN PLACE: BED IN LOWEST, LOCKED POSITION, SIDERAILS UPx2, CALL LIGHT WITHIN REACH. WILL CONTINUE TO MONITOR. KEPT RESTED AND COMFORTABLE. ENDORSED TO LINE AND FRAME POLER NURSE FOR CONTINUITY OF CARE.
--- NOTE | 2022-02-09 19:30 | NUR ---
MS RN OPENING NOTE RECEIVED PT AWAKE IN BED. A/O X4, ABLE TO MAKE NEEDS KNOWN. PT STABLE ON ROOM AIR. NO SOB OR S/S OF RESPIRATORY DISTRESS. BREATHING EVEN AND UNLABORED. IV ACCESS AMOR PICC LINE INTACT AND PATENT. HENDERSON CATHETER DRAINING CLEAR, YELLOW URINE. NOTED WITH WOUND VAC ON RIGHT KNEE AND VAC FUNCTIONING WELL, NOTED WITH BLOODY OUTPUT. SAFETY PRECAUTIONS IN PLACE. BED IN LOWEST LOCKED POSITION, HOB ELEVATED, SIDE RAILS UP X3, AND CALL LIGHT AND TABLE WITHIN REACH. ALL NEEDS MET AT THIS TIME.
[2022-02-09 20:00] VITALS: BP 145/79
--- NOTE | 2022-02-09 20:37 | NUR ---
RN NOTE PT COMPLAINED OF PAIN 02/20 OF R KNEE. ADMINISTERED OXY IR 40 MG FOR PAIN ORDERED. MADE COMFORTABLE IN BED. ALL NEEDS MET AT THIS TIME.
[2022-02-09] MEDS: DRONABINOL (2.5 MG) 2.5 MG CAPSULE PO SCH (21:37)
--- NOTE | 2022-02-09 21:37 | NUR ---
RN NOTE PT COMPLAINED OF PAIN / OF R KNEE. ADMINISTERED DILAUDID 1 MG FOR PAIN ORDERED. MADE COMFORTABLE IN BED. ALL NEEDS MET AT THIS TIME.
[2022-02-10] MEDS: ZOSYN IVPB 3.375 G in IV D5W 50ml IV SCH ×5 (00:19→23:48)
[2022-02-10] MEDS: oxyCODONE IR immediate release 5 MG PO PRN ×7 (00:28→23:09)
[2022-02-10] MEDS: HYDROMORPHONE 1 MG/1 ML DISP.SYRIN IV PRN ×3 (01:46→16:12)
--- NOTE | 2022-02-10 03:59 | NUR ---
RN NOTES ADMINISTERED OXYCODONE FOR PAIN PER MD ORDER. VS WNL. WILL CONTINUE TO MONITOR.
--- NOTE | 2022-02-10 04:04 | NUR ---
RN NOTES DROPPED 2 OXYCODONE PILLS ON THE FLOOR. REMOVED 2 PILLS (10 MG) FROM OMNICELL. WASTED TWO PILLS WITH RNELENA.
[2022-02-10] MEDS: METHADONE HCL 10 MG TABLET PO SCH ×2 (06:00→17:35)
--- NOTE | 2022-02-10 06:28 | NUR ---
RN NOTE PULLED METHADONE OUT OF OMNICELL, WASTED HALF WITH LINDA PORTILLO. ATTEMPTED TO GIVE DOSE TO PT, SHE REFUSED. EXPLAINED RISKS AND BENEFITS. PT STILL REFUSED. WASTED REMAINING HALF IN PHARMACEUTICAL WASTE, WITNESSED BY LINDA PORTILLO.
--- NOTE | 2022-02-10 06:52 | NUR ---
MS RN CLOSING NOTE PT AWAKE IN BED. A/O X4, ABLE TO MAKE NEEDS KNOWN. PT STABLE ON ROOM AIR. NO SOB OR S/S OF RESPIRATORY DISTRESS. BREATHING EVEN AND UNLABORED. IV ACCESS AMOR PICC LINE INTACT AND PATENT. HENDERSON CATHETER DRAINING CLEAR, YELLOW URINE. NOTED WITH WOUND VAC ON RIGHT KNEE AND VAC FUNCTIONING WELL, NOTED WITH BLOODY OUTPUT. ALL DUE MEDS GIVEN ORDERED. SAFETY PRECAUTIONS IN PLACE AT ALL TIMES. BED IN LOWEST LOCKED POSITION, HOB ELEVATED, SIDE RAILS UP X3, AND CALL LIGHT AND TABLE WITHIN REACH. ALL NEEDS MET AT THIS TIME AND WILL ENDORSE TO ONCOMING NURSE FOR MARC.
--- NOTE | 2022-02-10 07:38 | NUR ---
MS RN OPENING NOTES PT AWAKE IN BED. A/O X4, ABLE TO MAKE NEEDS KNOWN. PT STABLE ON ROOM AIR. NO SOB OR S/S OF RESPIRATORY DISTRESS. BREATHING EVEN AND UNLABORED. C/O OF PAIN ON THE RIGHT KNEE 8/10 PAIN SCALE AND OXY IR 40 MG GIVEN PO . IV ACCESS AMOR PICC LINE INTACT AND PATENT. HENDERSON CATHETER DRAINING CLEAR, YELLOW URINE. NOTED WITH WOUND VAC ON RIGHT KNEE AND VAC FUNCTIONING WELL, NOTED WITH BLOODY OUTPUT. SAFETY PRECAUTIONS IN PLACE AT ALL TIMES. BED IN LOWEST LOCKED POSITION, HOB ELEVATED, SIDE RAILS UP X3, AND CALL LIGHT AND TABLE WITHIN REACH. WILL C MONITOR FOR ANY CHANGES
--- NOTE | 2022-02-10 09:03 | NUR ---
WOUND CARE FOLLOW UP: PT SEEN FOR WOUND VAC DRESSING CHANGE TO RT KNEE. WOUND MEASURES 10CM X 7CM X 3CM AND IS MOSTLY RED IN COLOR WITH SOME LIGHT PINK AND SCANT AMOUNT OF YELLOW TISSUE. THERE IS BONE IN BASE OF WOUND ON LATERAL ASPECT OF WOUND. PLASTIC SURGERY P.A. IS AWARE. [place] INTACT TO PROXIMAL AND DISTAL ASPECTS OF WOUND. SKIN PREP AND VAC DRAPE WAS APPLIED TO PERIWOUND AREAS, 2 PIECES OF GRANUFOAM USED. VAC AT 125mmHg CONTINUOUS SETTING. THERE IS 50cc RED DRAINAGE IN CANISTER. PT TOLERATED WELL.
[2022-02-10] MEDS: DOCUSATE SODIUM 100 MG CAPSULE PO SCH (10:30)
[2022-02-10] MEDS: FAMOTIDINE (20 MG) 20 MG TABLET PO SCH (10:30)
[2022-02-10] MEDS: CLONIDINE HCL 0.1 MG TABLET PO SCH ×3 (10:30→17:31)
[2022-02-10] MEDS: GABAPENTIN 300 MG CAPSULE PO SCH ×3 (10:30→17:30)
[2022-02-10] MEDS: METOPROLOL SUCCINATE 50 MG TAB.SR.24H PO SCH (10:32)
[2022-02-10] MEDS: hydrALAZINE HCL 50 MG TABLET PO SCH ×3 (10:33→17:31)
[2022-02-10] MEDS: ASPIRIN 325 MG TABLET PO SCH (10:33)
[2022-02-10] MEDS: DAKINS QUARTER STRENGTH (0.125%) 480 ML BOTTLE TOP SCH (10:46)
[2022-02-10] MEDS: Z GUARD REMEDY 4 OZ OINT TP SCH (10:48)
[2022-02-10] MEDS: CLOTRIMAZOLE 1% 15 GM TUBE TP SCH ×2 (11:11→17:33)
[2022-02-10] MEDS: ATORVASTATIN 10 MG TABLET PO SCH (17:32)
--- NOTE | 2022-02-10 18:45 | NUR ---
RN NOTES PATIENT WITH ROUTINE METHADONE ORDERED AND REFUSED , SHE SAID SHE BAD REACTION TO THE MEDICATION ,
--- NOTE | 2022-02-10 18:54 | NUR ---
MS RN CLOSING NOTES PATIENT ON BED , A/O X 4 , DUE MEDS GIVEN , WOUND VAC DRESSING CHANGED BY WOUND NURSE , C/O OF PAIN AND DISCOMFORT OXY IR AND DILAUDID GIVEN ORDERED , AMOR PICCLINE INTACT , IVATB GIVEN ROUTINE METHADONE WAS REFUSED , BM X 3 , F/C WIT H 1200 CC , NO SOB OR ANY DISTRESS NOTED , WILL ENDORSED TO THE NEXT SHIFT
--- NOTE | 2022-02-10 19:35 | NUR ---
MS RN OPENING NOTES RECEIVED PATIENT IN BED; AWAKE, ALERT AND ORIENTED X4. BREATHING IS EVEN AND NONLABORED. NOT IN ANY FORM OF RESPIRATORY DISTRESS. ON ROOM AIR, TOLERATING WELL. WITH IV ACCESS ON RIGHT UPPER ARM; PICC LINE; INTACT AND PATENT. WITH HENDERSON CATHETER ATTACHED TO UROBAG DRAINING TO CLEAR YELLOW URINE. WITH WOUND VAC ON RIGHT KNEE; VAC FUNCTIONING WELL WITH BLOODY OUTPUT. SAFETY MEASURES IMPLEMENTED: HEAD OF BED ELEVATED, CALL LIGHT AND TABLE WITHIN EASY REACH, SIDE RAILS UP X2, BED IN LOWEST LOCKED POSITION. WILL CONTINUE TO MONITOR.
[2022-02-10] MEDS: DRONABINOL (2.5 MG) 2.5 MG CAPSULE PO SCH (22:22)
--- NOTE | 2022-02-10 23:09 | NUR ---
RN NOTE PATIENT COMPLAINED OF RIGHT KNEE PAIN WITH SCALE OF 7/10; PRN OXYCODONE IR 40 MG GIVEN PO ORDERED; MADE COMFORTABLE IN BED. WILL CONTINUE TO MONITOR
[2022-02-11] MEDS: HYDROMORPHONE 1 MG/1 ML DISP.SYRIN IV PRN ×6 (00:27→22:27)
--- NOTE | 2022-02-11 00:27 | NUR ---
RN NOTE PATIENT COMPLAINED OF RIGHT KNEE PAIN WITH SCALE OF 10/10; PRN HYDROMORPHONE 1 MG GIVEN VIA IV ORDERED; MADE COMFORTABLE IN BED. WILL CONTINUE TO MONITOR
[2022-02-11] MEDS: oxyCODONE IR immediate release 5 MG PO PRN ×6 (03:44→21:24)
[2022-02-11] MEDS: ZOSYN IVPB 3.375 G in IV D5W 50ml IV SCH ×3 (05:15→18:05)
[2022-02-11] MEDS: METHADONE HCL 10 MG TABLET PO SCH ×3 (06:00→18:05)
--- NOTE | 2022-02-11 06:52 | NUR ---
MS RN CLOSING NOTES PATIENT IS IN BED; AWAKE, A/O X4. BREATHING EVENLY AND UNLABORED. IN NO ACUTE DISTRESS NOTED. STABLE ON ROOM AIR. WITH IV ACCESS ON RIGHT UPPER ARM; PICC LINE; INTACT AND PATENT. WITH HENDERSON CATHETER ATTACHED TO UROBAG DRAINING TO CLEAR YELLOW URINE. WITH WOUND VAC ON RIGHT KNEE; VAC FUNCTIONING WELL WITH BLOODY OUTPUT. SAFETY MEASURES IN PLACE: HEAD OF BED ELEVATED, CALL LIGHT AND TABLE WITHIN EASY REACH, SIDE RAILS UP X2, BED IN LOWEST LOCKED POSITION. ENDORSED TO MORNING SHIFT FOR MARC.
--- NOTE | 2022-02-11 07:36 | NUR ---
MS RN OPENING NOTES RECEIVED PATIENT IN BED AWAKE, A/O X4. ABLE TO MAKE NEEDS KNOWN, C/O RIGHT KNEE PAIN 7/10 SCALE, PRN OXY IR 40MG PO GIVEN. ON ROOM AIR, TOLERATING WELL, BREATHING IS EVEN AND UNLABORED. RIGHT UPPER ARM PICC LINE INTACT, PATENT AND FLUSHES WELL. HENDERSON CATHETER IN PLACE AND DRAINING CLEAR YELLOW URINE VIA GRAVITY. WOUND VAC ON RIGHT KNEE AT 125MMHG CONTINUOUS FUNCTIONING WELL WITH BLOODY OUTPUT NOTED. SAFETY MEASURES MAINTAINED: HEAD OF BED ELEVATED, CALL LIGHT AND TRAY TABLE WITHIN EASY REACH, SIDE RAILS UP X2, BED IN LOWEST LOCKED POSITION. WILL CONTINUE TO MONITOR PT.
[2022-02-11 08:00] VITALS: BP 122/75
[2022-02-11] MEDS: DOCUSATE SODIUM 100 MG CAPSULE PO SCH ×3 (08:52→09:00)
[2022-02-11] MEDS: GABAPENTIN 300 MG CAPSULE PO SCH ×3 (08:52→17:38)
[2022-02-11] MEDS: ASPIRIN 325 MG TABLET PO SCH (08:52)
[2022-02-11] MEDS: hydrALAZINE HCL 50 MG TABLET PO SCH ×3 (08:53→17:00)
[2022-02-11] MEDS: FAMOTIDINE (20 MG) 20 MG TABLET PO SCH (08:53)
[2022-02-11] MEDS: METOPROLOL SUCCINATE 50 MG TAB.SR.24H PO SCH (08:53)
[2022-02-11] MEDS: CLONIDINE HCL 0.1 MG TABLET PO SCH ×3 (08:54→17:00)
--- NOTE | 2022-02-11 08:59 | NUR ---
MS RN NOTE: PT. REFUSED COLACE. MED RETURNED IN [facility].
[2022-02-11] MEDS: Z GUARD REMEDY 4 OZ OINT TP PRN ×2 (10:00→10:03)
[2022-02-11] MEDS: CLOTRIMAZOLE 1% 15 GM TUBE TP SCH ×2 (10:00→17:58)
[2022-02-11] MEDS: DAKINS QUARTER STRENGTH (0.125%) 480 ML BOTTLE TOP SCH (10:01)
[2022-02-11] MEDS: Z GUARD REMEDY 4 OZ OINT TP SCH (10:38)
[2022-02-11] MEDS: ATORVASTATIN 10 MG TABLET PO SCH (18:06)
--- NOTE | 2022-02-11 18:16 | NUR ---
MS RN NOTES: PT. REFUSED SCHEDULED METHADONE 5MG AT 1800 AFTER MEDICATION WAS OPENED IN FRONT OF HER. MEDICATION WASTED WITNESSED BY HELENA TAVERAS RN.
--- NOTE | 2022-02-11 18:40 | NUR ---
MS RN CLOSING NOTES PATIENT IN BED WATCHING TV AT THIS TIME. A/O X4. ABLE TO MAKE NEEDS KNOWN. PT ON ROOM AIR, BREATHING EVEN AND UNLABORED, NO SOB NOTED DURING SHIFT. AMOR PICC LINE INTACT, PATENT AND FLUSHES WELL. HENDERSON CATHETER IN PLACE AND DRAINING CLEAR YELLOW URINE VIA GRAVITY. ALL DUE MEDICATIONS GIVEN ORDERED AND TOLERATED WELL. WOUND VAC ON RIGHT KNEE AT 125MMHG PRESSURE CONTINUOUS FUNCTIONING WELL WITH SEROSANGUINEOUS DRAINAGE OUTPUT NOTED. ALL NEEDS AND CARE ATTENDED WELL. SAFETY MEASURES MAINTAINED: HEAD OF BED ELEVATED, CALL LIGHT AND TRAY TABLE WITHIN EASY REACH OF PT, SIDE-RAILS UP X2 AND BED IN LOWEST LOCKED POSITION. WILL ENDORSE MARC TO CAR CONDITIONER NURSE.
--- NOTE | 2022-02-11 19:10 | NUR ---
MS RN OPENING NOTES PATIENT IN BED WATCHING TV AT THIS TIME. A/O X4. ABLE TO MAKE NEEDS KNOWN. PT ON ROOM AIR, BREATHING EVEN AND UNLABORED, NO SOB NOTED DURING SHIFT. AMOR PICC LINE INTACT, PATENT AND FLUSHES WELL. HENDERSON CATHETER IN PLACE AND DRAINING CLEAR YELLOW URINE VIA GRAVITY. . WOUND VAC ON RIGHT KNEE AT 125MMHG PRESSURE CONTINUOUS FUNCTIONING WELL WITH SEROSANGUINEOUS DRAINAGE OUTPUT NOTED. ALL NEEDS AND CARE ATTENDED WELL. SAFETY MEASURES MAINTAINED: HEAD OF BED ELEVATED, CALL LIGHT AND TRAY TABLE WITHIN EASY REACH OF PT, SIDE-RAILS UP X2 AND BED IN LOWEST LOCKED POSITION. WILL CONTINUE TO MONITOR.
[2022-02-11 20:24] VITALS: BP 132/75
[2022-02-11] MEDS: DRONABINOL (2.5 MG) 2.5 MG CAPSULE PO SCH (21:24)
[2022-02-12] MEDS: ZOSYN IVPB 3.375 G in IV D5W 50ml IV SCH ×4 (00:10→17:47)
[2022-02-12] MEDS: oxyCODONE IR immediate release 5 MG PO PRN ×8 (00:31→20:44)
[2022-02-12] MEDS: HYDROMORPHONE 1 MG/1 ML DISP.SYRIN IV PRN ×5 (02:29→21:44)
--- NOTE | 2022-02-12 02:30 | NUR ---
MS RN NOTE COVERING FOR LINDA WAY. PATIENT COMPLAINING OF 8/10 PAIN. DILAUDID 1 MG IV GIVEN ORDERED. WILL CONTINUE TO MONITOR PATIENT
[2022-02-12] MEDS: METHADONE HCL 10 MG TABLET PO SCH ×2 (06:00→18:00)
--- NOTE | 2022-02-12 06:39 | NUR ---
MS RN NOTES PT AWAKE IN BED A/O X4 IN NO DISTRESS AT THIS TIME. PAIN MANAGEMENT WAS PROVIDED NEEDED WITH BOTH OXYCODONE IR 40MG AND DILAUDID IV. PT DID REFUSE SCHEDULED METHADONE THIS MORNING PT STATED SHE DOESN'T LIKE HOW IT MAKES HER FEEL. ALL NEEDS WHERE MET THROUGHOUT THE SHIFT. CALL LIGHT WITHIN REACH. TABLE WITHIN REACH. WILL ENDORSE CARE TO DAY SHIFT NURSE. PT WITH WOUND VAC TO RIGHT KNEW WITH 150 CC OUTPUT.
--- NOTE | 2022-02-12 07:48 | NUR ---
RN open note Patient is in bed, alert , oriented times 3 , ambulates with assistance , has Gee cath inplace with clear, yellow urine. Patient c/o pain of the right knee, has wound vac to the her right knee .Patient has AMOR PICC line , skin around the PICC line intact , flushed with 10 cc of the NS, no sighns of infiltration. Patient is on room air , breathing un labored , no sighs of distress. Bed is at lowest position , bed side rails are up , call light within reach .
[2022-02-12 08:00] VITALS: BP 152/77
[2022-02-12] MEDS: DOCUSATE SODIUM 100 MG CAPSULE PO SCH (08:46)
[2022-02-12] MEDS: CLONIDINE HCL 0.1 MG TABLET PO SCH ×3 (08:46→17:00)
[2022-02-12] MEDS: ASPIRIN 325 MG TABLET PO SCH (08:47)
[2022-02-12] MEDS: METOPROLOL SUCCINATE 50 MG TAB.SR.24H PO SCH (08:47)
[2022-02-12] MEDS: FAMOTIDINE (20 MG) 20 MG TABLET PO SCH (08:47)
[2022-02-12] MEDS: hydrALAZINE HCL 50 MG TABLET PO SCH ×3 (08:47→17:01)
[2022-02-12] MEDS: GABAPENTIN 300 MG CAPSULE PO SCH ×3 (08:47→17:00)
[2022-02-12] MEDS: DAKINS QUARTER STRENGTH (0.125%) 480 ML BOTTLE TOP SCH (08:59)
[2022-02-12] MEDS: Z GUARD REMEDY 4 OZ OINT TP PRN ×2 (08:59→09:00)
[2022-02-12] MEDS: CLOTRIMAZOLE 1% 15 GM TUBE TP SCH ×2 (08:59→18:03)
[2022-02-12] MEDS: Z GUARD REMEDY 4 OZ OINT TP SCH (09:00)
--- NOTE | 2022-02-12 11:00 | NUR ---
RN note At 10:39 I picked up one pill of the Oxycodone 5 mg instead of 8 tablet , realized that patient needs 7 more to make Oxy 40 mg, however administration of med was documented two times in EMAR, please ignore EMAR documentation that shows Oxy 40 mg given at 1048 , medication was given only once at 1039 40 mg , documentation error in EMAR was discussed with the pharmacy and the charge nurse
[2022-02-12 16:00] VITALS: BP 133/77
[2022-02-12] MEDS: ATORVASTATIN 10 MG TABLET PO SCH (17:47)
--- NOTE | 2022-02-12 18:29 | NUR ---
rn CLOSING NOTE Patient is in bed, non ambulatory , has wound vac to the right knee, continuously c/o pain of the R knee , asking for Diladin every4 hr and Oxycodone every 3 hr, patient has Gee cath in place , clear yellow urine , 1250 ml output , no BM today, patient has AMOR PICC line , skin intact both lumens are open , patient is on room air , breathing un labored ,no sighs of distress.all needs were met . Bed is at lowest position , Bed side rails are up , call light within reach.
--- NOTE | 2022-02-12 19:15 | NUR ---
RN NOTE PT AWAKE IN BED, WATCHING TV. A/OX4. RESPIRATIONS EVEN/UNLABORED. PAIN WELL CONTROLLED WITH PRN PAIN MEDS. IV ACCESS AMOR PICC LINE INTACT/PATENT/FLUSHES WELL. WITH R-KNEE WOUND VAC IN PLACE. WITH F/C DRAINING CLEAR YELLOW URINE. PT IN NO ACUTE DISTRESS. SAFETY MEASURES IN PLACE. WILL CONT TO MONITOR.
[2022-02-12 20:00] VITALS: BP 137/79
[2022-02-12] MEDS: DRONABINOL (2.5 MG) 2.5 MG CAPSULE PO SCH (21:42)
[2022-02-13] MEDS: ZOSYN IVPB 3.375 G in IV D5W 50ml IV SCH ×4 (00:24→17:25)
[2022-02-13] MEDS: oxyCODONE IR immediate release 5 MG PO PRN ×8 (00:50→23:29)
[2022-02-13] MEDS: HYDROMORPHONE 1 MG/1 ML DISP.SYRIN IV PRN ×6 (01:32→22:14)
[2022-02-13] MEDS: METHADONE HCL 10 MG TABLET PO SCH ×3 (06:00→17:38)
--- NOTE | 2022-02-13 07:16 | NUR ---
MS RN OPENING NOTES PATIENT IN BED INTERMITTENTLY SLEEPING, SHE IS A/O X4. ABLE TO MAKE NEEDS KNOWN. PT ON ROOM AIR, WITH EQUAL AND UNLABORED BREATHING NO SOB NOTED. WITH AMOR PICC LINE PATENT AND INTACT. WITH HENDERSON CATHETER IN PLACE AND DRAINING CLEAR YELLOW URINE VIA GRAVITY. WITH WOUND VAC ON RIGHT KNEE AT 125MMHG PRESSURE CONTINUOUS FUNCTIONING WELL WITH SEROSANGUINEOUS DRAINAGE OUTPUT NOTED. SAFETY MEASURES MAINTAINED: HEAD OF BED ELEVATED, CALL LIGHT AND TRAY TABLE WITHIN EASY REACH OF PT, SIDE-RAILS UP X2 AND BED IN LOWEST LOCKED POSITION. WILL CONTINUE TO MONITOR.
[2022-02-13 08:00] VITALS: BP 136/74
[2022-02-13] MEDS: ASPIRIN 325 MG TABLET PO SCH (08:37)
[2022-02-13] MEDS: FAMOTIDINE (20 MG) 20 MG TABLET PO SCH (08:37)
[2022-02-13] MEDS: GABAPENTIN 300 MG CAPSULE PO SCH ×3 (08:37→17:16)
[2022-02-13] MEDS: METOPROLOL SUCCINATE 50 MG TAB.SR.24H PO SCH (08:44)
[2022-02-13] MEDS: CLOTRIMAZOLE 1% 15 GM TUBE TP SCH ×2 (08:48→17:25)
[2022-02-13] MEDS: DAKINS QUARTER STRENGTH (0.125%) 480 ML BOTTLE TOP SCH (08:48)
[2022-02-13] MEDS: Z GUARD REMEDY 4 OZ OINT TP PRN (08:49)
[2022-02-13] MEDS: hydrALAZINE HCL 50 MG TABLET PO SCH ×3 (09:00→17:24)
[2022-02-13] MEDS: DOCUSATE SODIUM 100 MG CAPSULE PO SCH (09:00)
[2022-02-13] MEDS: Z GUARD REMEDY 4 OZ OINT TP SCH (09:00)
[2022-02-13] MEDS: CLONIDINE HCL 0.1 MG TABLET PO SCH ×3 (09:00→17:24)
--- NOTE | 2022-02-13 13:10 | NUR ---
MS RN NOTE SEEN BY DR. STRINGER, STILL ON PAIN MANAGEMENT.
[2022-02-13 16:00] VITALS: BP 144/88
[2022-02-13] MEDS: ATORVASTATIN 10 MG TABLET PO SCH (17:16)
--- NOTE | 2022-02-13 19:05 | NUR ---
MS RN CLOSING NOTE PATIENT IN BED INTERMITTENTLY SLEEPING, SHE IS A/O X4. ABLE TO MAKE NEEDS KNOWN. PT ON ROOM AIR, WITH EQUAL AND UNLABORED BREATHING NO SOB NOTED. WITH AMOR PICC LINE PATENT AND INTACT. WITH HENDERSON CATHETER IN PLACE AND DRAINING CLEAR YELLOW URINE VIA GRAVITY. WITH WOUND VAC ON RIGHT KNEE AT 125MMHG PRESSURE CONTINUOUS FUNCTIONING WELL WITH SEROSANGUINEOUS DRAINAGE OUTPUT NOTED. SAFETY MEASURES MAINTAINED: HEAD OF BED ELEVATED, CALL LIGHT AND TRAY TABLE WITHIN EASY REACH OF PT, SIDE-RAILS UP X2 AND BED IN LOWEST LOCKED POSITION. WILL ENDORSE PATIENT FOR CONTINUITY OF CARE.
[2022-02-13 20:00] VITALS: BP 160/90
--- NOTE | 2022-02-13 20:07 | NUR ---
MS RN OPENING NOTES; RECEIVED PATIENT AWAKE INBED, BED IN LOW POSITION CALL LIGHTS WITHIN REACH, NO COMPLAIN OF PAIN AND DISCOMFORT AT THIS TIME ON ROOM AIR SATURATING WELL, PATIENT KEPT CLEAN AND DRY ALL NEEDS MET WILL CONTINUE TO MONITOR.
[2022-02-13] MEDS: DRONABINOL (2.5 MG) 2.5 MG CAPSULE PO SCH (21:59)
[2022-02-14] MEDS: ZOSYN IVPB 3.375 G in IV D5W 50ml IV SCH ×5 (00:16→23:26)
[2022-02-14] MEDS: oxyCODONE IR immediate release 5 MG PO PRN ×7 (03:29→22:54)
[2022-02-14] MEDS: HYDROMORPHONE 1 MG/1 ML DISP.SYRIN IV PRN ×6 (04:00→23:25)
[2022-02-14] MEDS: METHADONE HCL 10 MG TABLET PO SCH ×2 (06:19→17:54)
--- NOTE | 2022-02-14 07:30 | NUR ---
MS RN OPENING NOTES RECEIVED PATIENT ON BED AWAKE AND A/O X4. ON ROOM AIR TOLERATING WELL. NO SOB NOTED. NOT IN DISTRESS. WITH COMPLAINTS OF PAIN AT THE RIGHT KNEE AT THE SCALE OF 7/10. COMFORT MEASURES PROVIDED. WITH IV ACCESS AT THE RIGHT UPPER ARM PICC LINE, SALINE LOCKED, PATENT AND INTACT. WITH WOUND VACC IN PLACED DRAINING SEROSANGUINOUS FLUID. WITH HENDERSON CATHETER IN PLACED DRAINING CLEAR YELLOW URINE. SAFETY MEASURES IN PLACED. CALL LIGHT WITHIN REACH. BED ON LOWEST LOCKED POSITION, SIDE RAILS UP X2. WILL CONTINUE TO MONITOR.
--- NOTE | 2022-02-14 07:53 | NUR ---
MS RN CLOSING NOTES: PATIENT AWAKE IN BED, BED IN LOW POSITION CALL LIGHTS WITHIN REACH, NO COMPLAIN OF PAIN AND DISCOMFORT THIS TIME, ON PAIN MANAGEMENT, PATIENT IS A/O4 ABLE TO EXPRESS NEEDS, ON ROOM AIR SATURATING WELL, ON HENDERSON CATHETER-700CC URINE OUTPUT WITH RIGHT KNEE WOUND VACC- 100CC OUTPUT,, PATIENT KEPT CLEAN AND DRY ALL NEEDS MET ENDORSE TO INCOMING SHIFT
[2022-02-14 08:00] VITALS: BP 151/79
[2022-02-14] MEDS: hydrALAZINE HCL 50 MG TABLET PO SCH ×3 (08:23→17:00)
[2022-02-14] MEDS: DOCUSATE SODIUM 100 MG CAPSULE PO SCH (08:23)
[2022-02-14] MEDS: FAMOTIDINE (20 MG) 20 MG TABLET PO SCH (08:24)
[2022-02-14] MEDS: ASPIRIN 325 MG TABLET PO SCH (08:24)
[2022-02-14] MEDS: METOPROLOL SUCCINATE 50 MG TAB.SR.24H PO SCH (08:24)
[2022-02-14] MEDS: GABAPENTIN 300 MG CAPSULE PO SCH ×3 (08:25→17:37)
[2022-02-14] MEDS: CLONIDINE HCL 0.1 MG TABLET PO SCH ×3 (08:25→17:36)
[2022-02-14] MEDS: CLOTRIMAZOLE 1% 15 GM TUBE TP SCH ×2 (09:11→17:38)
[2022-02-14] MEDS: Z GUARD REMEDY 4 OZ OINT TP SCH (09:11)
[2022-02-14] MEDS: DAKINS QUARTER STRENGTH (0.125%) 480 ML BOTTLE TOP SCH (09:11)
[2022-02-14] MEDS: ATORVASTATIN 10 MG TABLET PO SCH (17:36)
--- NOTE | 2022-02-14 18:18 | NUR ---
MS RN CLOSING NOTES PATIENT ON BED AWAKE AND A/O X4. ON ROOM AIR TOLERATING WELL. NO SOB NOTED. NOT IN DISTRESS. WITH COMPLAINTS OF PAIN AT THE RIGHT KNEE AT THE SCALE OF 6/10. COMFORT MEASURES PROVIDED. WITH IV ACCESS AT THE RIGHT UPPER ARM PICC LINE, SALINE LOCKED, PATENT AND INTACT. WITH WOUND VACC IN PLACED DRAINING SEROSANGUINOUS FLUID. WITH HENDERSON CATHETER IN PLACED DRAINING CLEAR YELLOW URINE. SAFETY MEASURES IN PLACED. CALL LIGHT WITHIN REACH. BED ON LOWEST LOCKED POSITION, SIDE RAILS UP X2. WILL ENDORSE TO NEXT SHIFT FOR MARC.
[2022-02-14 20:00] VITALS: BP 135/74
--- NOTE | 2022-02-14 20:10 | NUR ---
MS RN OPENING NOTES: RECEIVED PATIENT AWAKE IN BED ,BED IN LOW POSITION, CALL LIGHTS WITHIN REACH, NO COMPLAIN OF PAIN AND DISCOMFORT AT THIS TIME, ON ROOM AIR SATURATING WELL, PATIENT IS A/OX4 ABLE TO MAKE NEEDS KNOWN. ON PAIN MANAGEMENT, WITH ALVARO ML SL, WITH WOUND VACC ON RIGHT KNEE AT 440CC LEVEL, PATIENT KEPT CLEAN AND DRY ALL NEEDS MET WILL CONTINUE TO MONITOR
[2022-02-14] MEDS: DRONABINOL (2.5 MG) 2.5 MG CAPSULE PO SCH (22:04)
[2022-02-15] MEDS ORDERED: oxyCODONE IR immediate release 5 MG ONE (03:32)
[2022-02-15] MEDS: oxyCODONE IR immediate release 5 MG PO PRN ×4 (03:39→19:53)
[2022-02-15] MEDS: HYDROMORPHONE 1 MG/1 ML DISP.SYRIN IV PRN ×4 (04:08→21:41)
[2022-02-15] MEDS: METHADONE HCL 10 MG TABLET PO SCH ×3 (06:16→18:00)
[2022-02-15] MEDS: ZOSYN IVPB 3.375 G in IV D5W 50ml IV SCH ×4 (06:16→23:43)
--- NOTE | 2022-02-15 07:27 | NUR ---
MS RN CLOSING NOTES: PATIENT AWAKE IN BED, BED IN LOW POSITION CALL LIGHTS WITHIN REACH, NO COMPLAIN OF PAIN AND DISCOMFORT AT THIS TIME, ON PAIN MANAGEMENT, PATIENT IS A/OX4 ABLE TO MAKE NEEDS KNOWN, ON ROOM AIR SATURATING WELL, PATIENT ON WOOND VACC- KEPT CLEAN AND DRY ALL NEEDS MET ENDORSE TO INCOMING SHIFT.
--- NOTE | 2022-02-15 07:30 | NUR ---
RN MS NOTES PT IN BED, AWAKE, ALERT AND ORIENTED, WITH COMPLAINT OF RIGHT KNEE PAIN, RESPIRATIONS NORMAL, CALL LIGHT WITHIN REACH, NEEDS ATTENDED.
[2022-02-15 08:00] VITALS: BP 146/82
[2022-02-15] MEDS: DOCUSATE SODIUM 100 MG CAPSULE PO SCH (09:00)
--- NOTE | 2022-02-15 09:09 | NUR ---
WOUND CARE FOLLOW UP: PT SEEN FOR WOUND VAC DRESSING CHANGE TO RT KNEE WOUND. WOUND MEASURES 10CM X 7CM X 3CM AND IS RED IN COLOR WITH BONE PALPABLE. NO SIGN OF INFECTION NOTED. SKIN PREP AND VAC DRAPE WAS APPLIED TO PERIWOUND AREAS AND 2 PIECES OF GRANUFOAM USED FOR WOUND. VAC AT 125mmHg CONTINUOUS SETTING. CANISTER CHANGED WITH 450 DARK RED DRAINAGE. DISCUSSED WOUND TREATMENT WITH PLASTIC SURGERY P.A. CURRENTLY ON CASE. DR LIVINGSTON WAS IN TO SEE WOUND THIS AM. IN AGREEMENT WITH PLAN OF CARE.
[2022-02-15] MEDS: CLOTRIMAZOLE 1% 15 GM TUBE TP SCH ×2 (09:10→17:50)
[2022-02-15] MEDS: GABAPENTIN 300 MG CAPSULE PO SCH ×3 (09:11→17:31)
[2022-02-15] MEDS: DAKINS QUARTER STRENGTH (0.125%) 480 ML BOTTLE TOP SCH (09:11)
[2022-02-15] MEDS: ASPIRIN 325 MG TABLET PO SCH (09:11)
[2022-02-15] MEDS: FAMOTIDINE (20 MG) 20 MG TABLET PO SCH (09:12)
[2022-02-15] MEDS: METOPROLOL SUCCINATE 50 MG TAB.SR.24H PO SCH (09:13)
[2022-02-15] MEDS: hydrALAZINE HCL 50 MG TABLET PO SCH ×4 (09:13→17:31)
[2022-02-15] MEDS: Z GUARD REMEDY 4 OZ OINT TP SCH (09:14)
[2022-02-15] MEDS: CLONIDINE HCL 0.1 MG TABLET PO SCH ×4 (09:14→17:30)
--- NOTE | 2022-02-15 13:41 | NUR ---
RN NOTE SCHEDULED 1300 BP MEDICATIONS (HYDRALAZINE & CLONIDINE) NOT GIVEN DUE TO DECREASED BP LEVEL; BP LEVEL @ 128/ 58. WILL REASSESS.
[2022-02-15 16:00] VITALS: BP 133/88
[2022-02-15] MEDS: ATORVASTATIN 10 MG TABLET PO SCH (17:31)
--- NOTE | 2022-02-15 18:45 | NUR ---
RN CLOSING NOTE PATIENT ALERT AND A/O X4. OBSERVED RESTING IN BED THROUGHOUT SHIFT. NO S/SX OF RESPIRATORY DISTRESS OR SOB OBSERVED. PATIENT HAD MULTIPLE C/O PAIN TO AFFECTED RIGHT KNEE; PAIN LEVEL 10/10 ON NUMERICAL PAIN SCALE. PATIENT RECEIVED PRN DOSES OF DILAUDID @ 0856 AND 1749 & OXY @ 1002. MEDICATIONS MINIMALLY EFFECTIVE PER PATIENT REPORT. PATIENT REFUSED SCHEDULED 1800 DOSE OF METHADONE 5MG SHE STATES "IT MAKES ME JITTERY ALL NIGHT, AND I DONT FEEL LIKE DEALING WITH MY BODY TWITCHING ALL NIGHT". WOUND VAC TO AFFECTED RIGHT KNEE INTACT AND RUNNING WITH MINIMAL DRAINAGE ON SHIFT. PICC LINE TO AMOR PATENT AND FLUSHING WELL WITH NO S/SX OF INFILTRATION. HENDERSON CATHETER IN TACT AND FLOWING WELL. SAFETY MEASURES IN PLACE WITH BED AT LOWEST POSTITION AND LOCKED. CALL LIGHT WITHIN REACH, AND SIDRAIL UP X2. WILL CONTINUE TO MONITOR.
--- NOTE | 2022-02-15 19:15 | NUR ---
RN NOTE PT AWAKE IN BED, A/OX4. RESPIRATIONS EVEN/UNLABORED. PAIN WELL CONTROLLED WITH PRN PAIN MEDS. R-KNEE WOUND WITH DRESSING AND CONNECTED TO WOUND VAC, VAC @125MMHG CONTINUOUS SETTING. IV ACCESS: AMOR PICC LINE INTACT/PATENT/FLUSHES WELL. F/C IN PLACE, DRAINING CLEAR YELLOW URINE. PT IN NO ACUTE DISTRESS. SAFETY MEASURES IN PLACE. WILL CONT TO MONITOR.
[2022-02-15 20:00] VITALS: BP 117/74
[2022-02-15] MEDS: DRONABINOL (2.5 MG) 2.5 MG CAPSULE PO SCH (21:41)
[2022-02-16] MEDS: oxyCODONE IR immediate release 5 MG PO PRN ×7 (00:32→21:55)
[2022-02-16] MEDS: HYDROMORPHONE 1 MG/1 ML DISP.SYRIN IV PRN ×4 (01:41→23:11)
[2022-02-16] MEDS: ZOSYN IVPB 3.375 G in IV D5W 50ml IV SCH ×3 (05:48→17:36)
[2022-02-16] MEDS: METHADONE HCL 10 MG TABLET PO SCH ×2 (07:04→17:48)
[2022-02-16 07:05] LABS: BASOPHILS % (AUTO) 0.8 % (0.0-2.0); EOSINOPHILS % (AUTO) 6.3 % (0.0-6.0); HEMATOCRIT 28 % (33-45); HEMOGLOBIN 8.9 g/dL (11.5-14.8); LYMPHOCYTES % (AUTO) 35.5 % (20.0-44.0); MEAN CORPUSCULAR HGB CONC 32 g/dl (31.0-36.0); MEAN CORPUSCULAR VOLUME 76 fL (82-100); MONOCYTES # (AUTO) 0.4 K/uL (0.1-1.30); NEUTROPHILS # (AUTO) 2.7 K/uL (1.8-8.9); NEUTROPHILS % (AUTO) 49.4 % (43.0-81.0); PLATELET COUNT (AUTO) 410 K/uL (150-450); RED BLOOD CELL COUNT(AUTO) 3.69 MIL/uL (4.0-5.2); WHITE BLOOD COUNT (AUTO) 5.5 K/uL (4.3-11.0)
--- NOTE | 2022-02-16 07:40 | NUR ---
MS RN OPENING NOTES PT ON BED AWAKE AND VERBALLY RESPONSIVE A/OX4. RESPIRATIONS EVEN/UNLABORED . R-KNEE WOUND WITH DRESSING AND CONNECTED TO WOUND VAC, VAC @125MMHG CONTINUOUS SETTING. IV ACCESS: AMOR PICC LINE INTACT . F/C IN PLACE, DRAINING CLEAR YELLOW URINE. PT IN NO ACUTE DISTRESS. SAFETY MEASURES IN PLACE. WILL CONT TO MONITOR.
[2022-02-16 08:00] VITALS: BP 154/72
[2022-02-16 08:00] LABS: CALCIUM, SERUM 8.9 mg/dL (8.5-10.1); CREATININE 1.2 mg/dL (0.6-1.3); POTASSIUM 3.5 mmol/L (3.5-5.1)
[2022-02-16] MEDS: CLONIDINE HCL 0.1 MG TABLET PO SCH ×3 (08:33→17:27)
[2022-02-16] MEDS: METOPROLOL SUCCINATE 50 MG TAB.SR.24H PO SCH (08:34)
[2022-02-16] MEDS: FAMOTIDINE (20 MG) 20 MG TABLET PO SCH (08:34)
[2022-02-16] MEDS: hydrALAZINE HCL 50 MG TABLET PO SCH ×3 (08:34→17:27)
[2022-02-16] MEDS: ASPIRIN 325 MG TABLET PO SCH (08:34)
[2022-02-16] MEDS: DOCUSATE SODIUM 100 MG CAPSULE PO SCH (08:35)
[2022-02-16] MEDS: GABAPENTIN 300 MG CAPSULE PO SCH ×3 (08:35→17:26)
[2022-02-16] MEDS: CLOTRIMAZOLE 1% 15 GM TUBE TP SCH ×2 (08:36→17:28)
[2022-02-16] MEDS: DAKINS QUARTER STRENGTH (0.125%) 480 ML BOTTLE TOP SCH (08:36)
[2022-02-16] MEDS: Z GUARD REMEDY 4 OZ OINT TP PRN ×2 (08:36→08:38)
--- NOTE | 2022-02-16 08:39 | NUR ---
WOUND CARE: PT SEEN FOR ABDOMINAL/GROIN FOLDS OPEN SKIN DUE TO MOISTURE. RECOMMENDATIONS MADE FOR SKIN PROTECTION AND CARE. DISCUSSED WITH NURSING STAFF. RT KNEE WOUND VAC FUNCTIONING WELL WITH PINK/RED DRAINAGE IN CANISTER.
[2022-02-16] MEDS: Z GUARD REMEDY 4 OZ OINT TP SCH (08:40)
[2022-02-16 16:00] VITALS: BP 104/56
[2022-02-16] MEDS: ATORVASTATIN 10 MG TABLET PO SCH (17:50)
--- NOTE | 2022-02-16 19:03 | NUR ---
RN CLOSING NOTE PATIENT REMAINS A/O X4. OBSERVED THROUGHOUT SHIFT INTERMITTENTLY RESTING IN BED . NO S/SX OF RESPIRATORY DISTRESS OR SOB OBSERVED. PATIENT HAD MULTIPLE C/O PAIN TO AFFECTED RIGHT KNEE WITH PAIN LEVEL AT 10/10 ON NUMERICAL PAIN SCALE. PATIENT RECEIVED PRN DOSES OF DILAUDID @ 1735 & OXY @ 0817 1200 1523 & 1840. MEDICATIONS MINIMALLY EFFECTIVE PER PATIENT REPORT. PATIENT ONCE AGAIN REFUSED SCHEDULED 1800 METHADONE SHE DOES NOT LIKE THE WAY IT MAKES HER FEEL AT NIGHT. WOUND VAC TO AFFECTED RIGHT KNEE INTACT AND RUNNING. PICC LINE TO AMOR REMAINS PATENT AND FLUSHING WELL WITH NO S/SX OF INFILTRATION. HENDERSON CATHETER IN TACT AND FLOWING WELL. SAFETY MEASURES IN PLACE WITH BED AT LOWEST POSTITION AND LOCKED. CALL LIGHT WITHIN REACH, AND SIDRAIL UP X2. WILL CONTINUE TO MONITOR.
--- NOTE | 2022-02-16 19:25 | NUR ---
RN NOTE PT AWAKE IN BED, A/OX4. RESPIRATIONS EVEN/UNLABORED. PAIN MANAGED WITH ALTERNATING PRN PAIN MEDS OXY IR AND DILAUDID. R-KNEE WOUND WITH DRESSING AND CONNECTED TO WOUND VAC, VAC @125MMHG CONTINUOUS SETTING. IV ACCESS: AMOR PICC LINE INTACT/PATENT/FLUSHES WELL. F/C IN PLACE, DRAINING CLEAR YELLOW URINE. PT IN NO ACUTE DISTRESS. SAFETY MEASURES IN PLACE. WILL CONT TO MONITOR.
[2022-02-16 20:00] VITALS: BP 134/81
[2022-02-16] MEDS: DRONABINOL (2.5 MG) 2.5 MG CAPSULE PO SCH (21:54)
[2022-02-17] MEDS: ZOSYN IVPB 3.375 G in IV D5W 50ml IV SCH ×5 (00:21→23:58)
[2022-02-17] MEDS: oxyCODONE IR immediate release 5 MG PO PRN ×6 (01:19→21:41)
[2022-02-17] MEDS: HYDROMORPHONE 1 MG/1 ML DISP.SYRIN IV PRN ×5 (05:32→23:58)
[2022-02-17] MEDS: METHADONE HCL 10 MG TABLET PO SCH ×2 (07:06→18:00)
--- NOTE | 2022-02-17 07:10 | NUR ---
RN NOTE PT AWAKE IN BED, A/OX4. NO SOB. PAIN WELL CONTROLLED WITH PRN PAIN MEDS. R-KNEE WOUND WITH DRESSING AND CONNECTED TO WOUND VAC, VAC @125MMHG CONTINUOUS SETTING. IV ACCESS: AMOR PICC LINE INTACT/PATENT/FLUSHES WELL. F/C IN PLACE, DRAINING CLEAR YELLOW URINE. PT IN NO ACUTE DISTRESS. SAFETY MEASURES IN PLACE. WILL CONT TO MONITOR.
--- NOTE | 2022-02-17 07:30 | NUR ---
MS RN OPENING NOTES RECEIVED PATIENT AWAKE IN BED WATCHING TV. A/O X 4. PATIENT ON ROOM AIR NO S/S OF SOB OR DISCOMFORT. PATIENT HAS AMOR PICC LINE, INTACT AND PATENT, NO S/S OF INFILTRATION. PATIENT COMPLAINED OF PAIN OF BILATERAL KNEES PRN OXYCODONE GIVEN. WILL CONTINUE TO MONITOR. WOUND VAC IN PLACE ON RIGHT KNEE DRAINAGE RED AND CLEAR. HENDERSON IN PLACE AND DRAINAGE IS YELLOW AND CLEAR. SAFETY MEASURES IN PLACE: BED IN LOWEST POSITION, SIDE RAILS UP X2, HOB ELEVATED, AND CALL LIGHT WITHIN REACH.
[2022-02-17] MEDS: DOCUSATE SODIUM 100 MG CAPSULE PO SCH (09:00)
[2022-02-17] MEDS: GABAPENTIN 300 MG CAPSULE PO SCH ×3 (09:33→17:48)
[2022-02-17] MEDS: ASPIRIN 325 MG TABLET PO SCH (09:37)
[2022-02-17] MEDS: FAMOTIDINE (20 MG) 20 MG TABLET PO SCH (09:38)
[2022-02-17] MEDS: CLONIDINE HCL 0.1 MG TABLET PO SCH ×3 (09:38→17:49)
[2022-02-17] MEDS: hydrALAZINE HCL 50 MG TABLET PO SCH ×3 (09:39→17:48)
[2022-02-17] MEDS: METOPROLOL SUCCINATE 50 MG TAB.SR.24H PO SCH (09:39)
--- NOTE | 2022-02-17 09:40 | NUR ---
RN NOTES PATIENT COMPLAINED OF PAIN OF BILATERAL KNEES 10/10 PRN DILAUDID GIVEN @0940. WILL CONTINUE TO MONITOR.
[2022-02-17] MEDS: Z GUARD REMEDY 4 OZ OINT TP PRN (09:42)
[2022-02-17] MEDS: DAKINS QUARTER STRENGTH (0.125%) 480 ML BOTTLE TOP SCH (09:42)
[2022-02-17] MEDS: CLOTRIMAZOLE 1% 15 GM TUBE TP SCH ×2 (09:42→17:49)
[2022-02-17] MEDS: Z GUARD REMEDY 4 OZ OINT TP SCH (09:47)
--- NOTE | 2022-02-17 10:30 | NUR ---
RN NOTES PATIENT COMPLAINED OF PAIN OF BILATERAL KNEES 6/10, PRN OXYCODONE GIVEN @1030. WILL CONTINUE TO MONITOR.
--- NOTE | 2022-02-17 13:27 | NUR ---
RN NOTES PATIENT REFUSED 1300 BP MEDICATION, BLOOD PRESSURE IS 123/62 PULSE IS 70. PATIENT STABLE WILL CONTINUE TO MONITOR.
--- NOTE | 2022-02-17 15:02 | NUR ---
RN NOTES PATIENT COMPLAINED OF PAIN 7/10 PRN OXYCODONE GIVEN @ 1502. WILL CONTINUE TO MONITOR.
[2022-02-17 16:00] VITALS: BP 153/72
[2022-02-17] MEDS: ATORVASTATIN 10 MG TABLET PO SCH (17:48)
--- NOTE | 2022-02-17 18:03 | NUR ---
RN NOTES PATIENT COMPLAINED OF PAIN 7/10 OF BILATERAL KNEES, PRN OXYCODONE WAS GIVEN @1803, ROUTINE METHADONE WAS REFUSED. WILL CONTINUE TO MONITOR.
--- NOTE | 2022-02-17 18:45 | NUR ---
MS RN CLOSING NOTES PATIENT AWAKE IN BED WATCHING TV AND ON THE PHONE. A/O X 4. PATIENT STABLE ROOM AIR NO S/S OF SOB OR DISCOMFORT. PATIENT HAS AMOR PICC LINE, INTACT AND PATENT, NO S/S OF INFILTRATION. WOUND VAC IN PLACE ON RIGHT KNEE DRAINAGE RED AND CLEAR 50 ML DRAINED DURING SHIFT. HENDERSON IN PLACE AND DRAINAGE IS YELLOW AND CLEAR 700ML DRAINED DURING SHIFT. ALL PRESCRIBED MEDICATION ADMINISTERED AND TOLERATED. SAFETY MEASURES MAINTAINED: BED IN LOWEST POSITION, SIDE RAILS UP X2, HOB ELEVATED, AND CALL LIGHT WITHIN REACH. WILL ENDORSE TO NEXT SHIFT ANY MARC.
--- NOTE | 2022-02-17 19:50 | NUR ---
RN NOTES PATIENT COMPLAINED OF PAIN OF BILATERAL KNEES 8/10 PRN DILAUDID GIVEN @1950. WILL CONTINUE TO MONITOR.
[2022-02-17 20:00] VITALS: BP 134/66
[2022-02-17 20:30] VITALS: BP 116/78
[2022-02-17] MEDS: DRONABINOL (2.5 MG) 2.5 MG CAPSULE PO SCH (21:10)
--- NOTE | 2022-02-17 23:51 | NUR ---
RN NOTES RECEIVED REPORT ON PT. PT STABLE. WILL CONTINUE TO MONITOR.
--- NOTE | 2022-02-17 23:59 | NUR ---
RN NOTES ADMINISTERED DILAUDID FOR PAIN PER MD ORDER. VS WNL. WILL CONTINUE TO MONITOR.
[2022-02-18] MEDS: oxyCODONE IR immediate release 5 MG PO PRN ×6 (00:58→20:02)
--- NOTE | 2022-02-18 00:58 | NUR ---
RN NOTES ADMINISTERED OXYCODONE FOR PAIN PER MD ORDER. VS WNL. WILL CONTINUE TO MONITOR.
--- NOTE | 2022-02-18 04:09 | NUR ---
RN NOTES ADMINISTERED OXYCODONE FOR PAIN PER MD ORDER. VS WNL. WILL CONTINUE TO MONITOR.
[2022-02-18] MEDS: HYDROMORPHONE 1 MG/1 ML DISP.SYRIN IV PRN ×3 (05:14→21:51)
--- NOTE | 2022-02-18 05:14 | NUR ---
RN NOTES ADMINISTERED DILAUDID FOR PAIN PER MD ORDER. VS WNL. WILL CONTINUE TO MONITOR.
[2022-02-18] MEDS: ZOSYN IVPB 3.375 G in IV D5W 50ml IV SCH ×4 (05:49→23:23)
[2022-02-18] MEDS: METHADONE HCL 10 MG TABLET PO SCH ×2 (05:50→17:30)
--- NOTE | 2022-02-18 06:54 | NUR ---
RN CLOSING NOTES PT IN BED, AWAKE, ON PHONE. AOx4, ABLE TO MAKE NEEDS KNOWN. ON RA AND TOLERATING WELL. NO SOB NOTED. NO S/SX OF RESPIRATORY DISTRESS NOTED. IV ACCESS AMOR PICC LINE. IV IS INTACT, PATENT, AND FLUSHING WELL. ALL ORDERS CARRIED OUT. ALL NEEDS MET. PT KEPT CLEAN AND DRY. TREATED PAIN THROUGHOUT SHIFT. SAFETY PRECAUTIONS IN PLACE: BED IN LOWEST, LOCKED POSITION, SIDERAILS UPx2, AND BRAKES ON. TABLE AND CALL LIGHT WITHIN REACH. WILL ENDORSE TO ONCOMING SHIFT FOR MARC.
--- NOTE | 2022-02-18 08:09 | NUR ---
WOUND CARE CONSULT: PT SEEN FOR WOUND VAC DRESSING CHANGE AND WOUND NOTED TO BE SMALLER IN SIZE WITH MOSTLY RED GRANULATION TISSUE BUT WITH SOME YELLOW ADHERENT SLOUGH TO LATERAL AND MEDIAL EDGES OF WOUND. DISCUSSED WITH SURGICAL P.A. CURRENTLY ON CASE. WOUND TREATMENT ORDERS UPDATED AND DISCUSSED WITH NURSING STAFF. A FEW [place] STILL NOTED TO SUPERIOR AND INFERIOR ASPECTS. WOUND SIZE IS 9CM X 7CM X 2.5CM DEPTH. WOUND VAC DISCONTINUED AT THIS TIME. 275cc RED DRAINAGE IN DISCARDED CANISTER. IN AGREEMENT WITH PLAN OF CARE.
[2022-02-18] MEDS: ASPIRIN 325 MG TABLET PO SCH (08:17)
[2022-02-18] MEDS: GABAPENTIN 300 MG CAPSULE PO SCH ×3 (08:17→17:29)
[2022-02-18] MEDS: CLONIDINE HCL 0.1 MG TABLET PO SCH ×3 (08:18→17:29)
[2022-02-18] MEDS: METOPROLOL SUCCINATE 50 MG TAB.SR.24H PO SCH (08:18)
[2022-02-18] MEDS: hydrALAZINE HCL 50 MG TABLET PO SCH ×3 (08:18→17:29)
[2022-02-18] MEDS: DAKINS QUARTER STRENGTH (0.125%) 480 ML BOTTLE TOP SCH (08:19)
[2022-02-18] MEDS: FAMOTIDINE (20 MG) 20 MG TABLET PO SCH (08:19)
[2022-02-18] MEDS: CLOTRIMAZOLE 1% 15 GM TUBE TP SCH ×2 (08:20→17:32)
[2022-02-18] MEDS: Z GUARD REMEDY 4 OZ OINT TP SCH (08:21)
[2022-02-18] MEDS: DOCUSATE SODIUM 100 MG CAPSULE PO SCH (08:25)
[2022-02-18] MEDS: ATORVASTATIN 10 MG TABLET PO SCH (17:29)
--- NOTE | 2022-02-18 18:37 | NUR ---
RN CLOSING NOTE PATIENT IN BED RESTING. IN NO ACUTE DISTRESS NOTED. RESPIRATORY EVEN AND UNLABORED ON ROOM AIR. SKIN IS WARM TO TOUCH, KEEP CLEAN/DRY. DRESSING CHANGED BY AP, AND PATIENT TOLERATED. KEPT ELEVATED HOB FOR ENSURE AIRWAY AND ASPIRATION PRECAUTION, BED IN LOWEST POSITION AND LOCK. BED ALARM IS ON AT ALL THE TIMES. SAFETY MEASURED IN PLACED. CALL LIGHT WITHIN REACH, WILL ENDORSED TO NEXT SHIFT.
--- NOTE | 2022-02-18 19:20 | NUR ---
MS RN OPENING NOTES: RECEIVED PATIENT IN BED, AWAKE, NO S/S OF DISTRESS NOTED. CALL LIGHT WITHIN REACH. BED IN LOWEST AND LOCKED POSITION. BED ALARM ON. HOB ELEVATED.
[2022-02-18 20:21] VITALS: BP 124/74
[2022-02-18] MEDS: DRONABINOL (2.5 MG) 2.5 MG CAPSULE PO SCH (21:51)
[2022-02-19] MEDS: oxyCODONE IR immediate release 5 MG PO PRN ×7 (02:14→23:18)
[2022-02-19] MEDS: METHADONE HCL 10 MG TABLET PO SCH ×2 (06:32→17:08)
[2022-02-19] MEDS: ZOSYN IVPB 3.375 G in IV D5W 50ml IV SCH ×4 (06:33→23:22)
--- NOTE | 2022-02-19 07:38 | NUR ---
OPENING NOTE RECIEVED PATIENT REPORT FROM NIGHTSHIFT RN. PATIENT IN BED AWAKE ALERT AND ORIENTED TIMES 4. BREATHING EVENLY AND UNLABORED ON ROOM AIR. HENDERSON CATHETER NOTED. RIGHT KNEE WOUND NOTED, DRESSING INTACT. IV ACCESS NOTED ON RIGHT UPPER ARM PICC LINE, FLUSHING EASILY WITHOUT RESISTANCE. SAFETY MEASURES IN PLACE, SIDE RAILS UP, CALL LIGHT WITHIN REACH, FALL RISK BRACELET ON. WILL CONTINUE PLAN OF CARE AND ANTICIPATE NEEDS.
[2022-02-19 08:00] VITALS: BP 140/65
[2022-02-19] MEDS: FAMOTIDINE (20 MG) 20 MG TABLET PO SCH (08:56)
[2022-02-19] MEDS: GABAPENTIN 300 MG CAPSULE PO SCH ×3 (08:56→17:08)
[2022-02-19] MEDS: DOCUSATE SODIUM 100 MG CAPSULE PO SCH (08:56)
[2022-02-19] MEDS: hydrALAZINE HCL 50 MG TABLET PO SCH ×3 (08:57→17:09)
[2022-02-19] MEDS: CLONIDINE HCL 0.1 MG TABLET PO SCH ×3 (08:57→17:09)
[2022-02-19] MEDS: ASPIRIN 325 MG TABLET PO SCH (08:57)
[2022-02-19] MEDS: METOPROLOL SUCCINATE 50 MG TAB.SR.24H PO SCH (08:57)
[2022-02-19] MEDS: CLOTRIMAZOLE 1% 15 GM TUBE TP SCH ×2 (09:00→17:09)
[2022-02-19] MEDS: DAKINS QUARTER STRENGTH (0.125%) 480 ML BOTTLE TOP SCH (09:00)
[2022-02-19] MEDS: Z GUARD REMEDY 4 OZ OINT TP SCH (09:00)
[2022-02-19] MEDS: HYDROMORPHONE 1 MG/1 ML DISP.SYRIN IV PRN ×3 (10:03→21:39)
[2022-02-19 16:00] VITALS: BP 132/66
[2022-02-19] MEDS: ATORVASTATIN 10 MG TABLET PO SCH (17:08)
--- NOTE | 2022-02-19 18:53 | NUR ---
RN CLOSING NOTE PATIENT IN BED AWAKE ALERT AND ORIENTED TIMES 4. BREATHING EVENLY AND UNLABORED ON ROOM AIR. HENDERSON CATHETER NOTED. RIGHT KNEE WOUND NOTED, DRESSING CHANGE PERFORMED DURING SHIFT, CURRENTLY INTACT. IV ACCESS NOTED ON RIGHT UPPER ARM PICC LINE, FLUSHING EASILY WITHOUT RESISTANCE. SAFETY MEASURES IN PLACE, SIDE RAILS UP, CALL LIGHT WITHIN REACH, FALL RISK BRACELET ON. WILL ENDORSE TO NIGHTSHIFT RN FOR CONTINUATION OF CARE.
--- NOTE | 2022-02-19 19:05 | NUR ---
MS RN OPENING NOTES: RECEIVED PATIENT IN BED, AWAKE. NO S/S OF DISTRESS NOTED. CALL LIGHT WITHIN REACH. BED IN LOWEST AND LOCKED POSITION.
[2022-02-19 20:00] VITALS: BP 113/72
[2022-02-19] MEDS: DRONABINOL (2.5 MG) 2.5 MG CAPSULE PO SCH (21:40)
[2022-02-20] MEDS: oxyCODONE IR immediate release 5 MG PO PRN ×5 (04:23→20:25)
[2022-02-20] MEDS: ZOSYN IVPB 3.375 G in IV D5W 50ml IV SCH ×3 (06:06→18:20)
[2022-02-20] MEDS: METHADONE HCL 10 MG TABLET PO SCH ×2 (06:06→18:00)
--- NOTE | 2022-02-20 07:19 | NUR ---
MS RN OPENING NOTE RECEIVED PATIENT AWAKE IN BED. PATIENT IS ALERT AND ORIENTED TIMES 4. BREATHING EVENLY AND UNLABORED ON ROOM AIR. HENDERSON CATHETER INTACT DRAINING YELLOW COLOR URINE. RIGHT KNEE WOUND DRESSING INTACT AND PATENT. IV ACCESS ON RIGHT UPPER ARM PICC LINE INTACT, FLUSHING WELL . SAFETY MEASURES IN PLACE, SIDE RAILS UP, CALL LIGHT WITHIN REACH, FALL RISK BRACELET ON. WILL CONTINUE TO MONITOR.
[2022-02-20 08:00] VITALS: BP 167/78
[2022-02-20] MEDS: CLONIDINE HCL 0.1 MG TABLET PO SCH ×3 (08:34→17:31)
[2022-02-20] MEDS: FAMOTIDINE (20 MG) 20 MG TABLET PO SCH (08:35)
[2022-02-20] MEDS: ASPIRIN 325 MG TABLET PO SCH (08:35)
[2022-02-20] MEDS: hydrALAZINE HCL 50 MG TABLET PO SCH ×3 (08:35→17:31)
[2022-02-20] MEDS: METOPROLOL SUCCINATE 50 MG TAB.SR.24H PO SCH (08:37)
[2022-02-20] MEDS: GABAPENTIN 300 MG CAPSULE PO SCH ×3 (08:37→17:30)
[2022-02-20] MEDS: DAKINS QUARTER STRENGTH (0.125%) 480 ML BOTTLE TOP SCH (08:38)
[2022-02-20] MEDS: Z GUARD REMEDY 4 OZ OINT TP PRN (08:38)
[2022-02-20] MEDS: CLOTRIMAZOLE 1% 15 GM TUBE TP SCH ×2 (08:39→17:00)
[2022-02-20] MEDS: DOCUSATE SODIUM 100 MG CAPSULE PO SCH (09:00)
[2022-02-20] MEDS: Z GUARD REMEDY 4 OZ OINT TP SCH (09:42)
[2022-02-20] MEDS: HYDROMORPHONE 1 MG/1 ML DISP.SYRIN IV PRN ×3 (10:08→21:52)
[2022-02-20 16:00] VITALS: BP 135/71
[2022-02-20] MEDS: ATORVASTATIN 10 MG TABLET PO SCH (17:30)
--- NOTE | 2022-02-20 18:09 | NUR ---
RN NOTES PATIENT REFUSED METHADONE 10 MG FOR 1800. SHE PREFERS OXYCODONE AND DILAUDID.
--- NOTE | 2022-02-20 18:54 | NUR ---
MS RN CLOSING NOTE PATIENT AWAKE IN BED. PATIENT IS ALERT AND ORIENTED TIMES 4. BREATHING EVENLY AND UNLABORED ON ROOM AIR.PAIN MANAGEMENT CONTROLLED. HENDERSON CATHETER INTACT DRAINING YELLOW COLOR URINE. URINE OUTPUT 700 ML. RIGHT KNEE WOUND DRESSING CHANGED.INTACT AND PATENT. IV ACCESS ON RIGHT UPPER ARM PICC LINE INTACT, FLUSHING WELL . SAFETY MEASURES IN PLACE, SIDE RAILS UP, CALL LIGHT WITHIN REACH, FALL RISK BRACELET ON. WILL ENDORSE FOR MARC.
--- NOTE | 2022-02-20 19:32 | NUR ---
MS RN OPENING NOTE RECEIVED PT AWAKE IN BED. A/O X4 AND ABLE TO MAKE NEEDS KNOWN. PT STABLE ON ROOM AIR. NO SOB OR S/S OF RESPIRATORY DISTRESS. BREATHING EVEN AND UNLABORED. HENDERSON CATHETER INTACT DRAINING YELLOW COLORED URINE. RIGHT KNEE WOUND DRESSING C/D/I. IV ACCESS AOMR PICC LINE SL, INTACT AND PATENT. SAFETY PRECAUTIONS IN PLACE. BED IN LOWEST LOCKED POSITION, HOB ELEVATED, SIDE RAILS UP X2, AND CALL LIGHT AND TABLE WITHIN REACH. ALL NEEDS MET AT THIS TIME.
[2022-02-20 20:15] VITALS: BP 116/54
--- NOTE | 2022-02-20 20:25 | NUR ---
RN NOTE PT COMPLAINED OF PAIN / OF R KNEE. ADMINISTERED OXY IR 40 MG FOR MODERATE PAIN ORDERED. MADE COMFORTABLE IN BED. ALL NEEDS MET AT THIS TIME.
[2022-02-20] MEDS: DRONABINOL (2.5 MG) 2.5 MG CAPSULE PO SCH (21:52)
--- NOTE | 2022-02-20 21:52 | NUR ---
RN NOTE PT COMPLAINED OF PAIN 8/10 OF R KNEE. ADMINISTERED DILAUDID 1MG FOR SEVERE PAIN ORDERED. MADE COMFORTABLE IN BED. ALL NEEDS MET AT THIS TIME.
[2022-02-21] MEDS: ZOSYN IVPB 3.375 G in IV D5W 50ml IV SCH ×4 (00:44→17:51)
[2022-02-21] MEDS: oxyCODONE IR immediate release 5 MG PO PRN ×7 (00:45→22:44)
[2022-02-21] MEDS: METHADONE HCL 10 MG TABLET PO SCH ×2 (06:00→17:27)
[2022-02-21] MEDS: HYDROMORPHONE 1 MG/1 ML DISP.SYRIN IV PRN ×4 (06:11→21:01)
--- NOTE | 2022-02-21 06:47 | NUR ---
RN NOTE PT REFUSED TO HAVE WOUND PICTURES TAKEN. SHE STATED THAT SHE "JUST GOT MY WOUND CARE DONE. I DONT NEED IT DONE AGAIN". ALL OTHER NEEDS MET AT THIS TIME.
--- NOTE | 2022-02-21 07:50 | NUR ---
MS RN OPENING NOTE RECEIVED PATIENT AWAKE IN BED. A/O X4 AND ABLE TO VERBALIZED NEEDS. NO SOB OR CARDIAC DISTRESS NOTED, ON ROOM AIR AND TOLERATING WELL. BREATHING EVEN AND UNLABORED. IV ACCESS AMOR PICC LINE SL, INTACT AND PATENT. HENDERSON CATHETER INTACT DRAINING YELLOW COLORED URINE.SAFETY PRECAUTIONS IN PLACE. BED IN LOWEST LOCKED POSITION, HOB ELEVATED, SIDE RAILS UP X2, AND CALL LIGHT AND TABLE WITHIN REACH. KEPT RESTED AND COMFORTABLE.
--- NOTE | 2022-02-21 07:53 | NUR ---
MS RN CLOSING NOTE PT AWAKE IN BED. A/O X4 AND ABLE TO MAKE NEEDS KNOWN. PT STABLE ON ROOM AIR. NO SOB OR S/S OF RESPIRATORY DISTRESS. BREATHING EVEN AND UNLABORED. HENDERSON CATHETER INTACT DRAINING YELLOW COLORED URINE. RIGHT KNEE WOUND DRESSING C/D/I. IV ACCESS AMOR PICC LINE SL, INTACT AND PATENT. SAFETY PRECAUTIONS IN PLACE. BED IN LOWEST LOCKED POSITION, HOB ELEVATED, SIDE RAILS UP X2, AND CALL LIGHT AND TABLE WITHIN REACH. ALL NEEDS MET AT THIS TIME AND WILL ENDORSE TO ONCOMING NURSE FOR MARC.
[2022-02-21 08:00] VITALS: BP 146/80
[2022-02-21] MEDS: Z GUARD REMEDY 4 OZ OINT TP SCH (09:00)
[2022-02-21] MEDS: GABAPENTIN 300 MG CAPSULE PO SCH ×3 (09:09→17:19)
[2022-02-21] MEDS: ASPIRIN 325 MG TABLET PO SCH (09:09)
[2022-02-21] MEDS: DOCUSATE SODIUM 100 MG CAPSULE PO SCH (09:09)
[2022-02-21] MEDS: FAMOTIDINE (20 MG) 20 MG TABLET PO SCH (09:09)
[2022-02-21] MEDS: CLONIDINE HCL 0.1 MG TABLET PO SCH ×3 (09:10→17:16)
[2022-02-21] MEDS: hydrALAZINE HCL 50 MG TABLET PO SCH ×3 (09:10→17:17)
[2022-02-21] MEDS: DAKINS QUARTER STRENGTH (0.125%) 480 ML BOTTLE TOP SCH (09:11)
[2022-02-21] MEDS: CLOTRIMAZOLE 1% 15 GM TUBE TP SCH ×2 (09:11→17:19)
[2022-02-21] MEDS: METOPROLOL SUCCINATE 50 MG TAB.SR.24H PO SCH (09:11)
--- NOTE | 2022-02-21 09:11 | NUR ---
WOUND CARE FOLLOW UP: PT SEEN FOR RE-EVALUATION OF RT KNEE WOUND. THERE IS SMALL AMOUNT OF YELLOW ADHERENT SLOUGH TO MEDIAL SIDE OF KNEE BUT RED GRANULATION TISSUE TO BALANCE OF WOUND WITH SOME HYPERGRANULATION TISSUE NOTED. DEEPER AREA OF 2.5CM REMAINS AT LATERAL EDGE. DISCUSSED SKIN PROTECTION AND WOUND TREATMENT PLAN WITH SURGICAL P.A. AND NURSING STAFF. MD IN AGREEMENT WITH PLAN OF CARE.
[2022-02-21] MEDS: Z GUARD REMEDY 4 OZ OINT TP PRN ×2 (09:12→10:39)
[2022-02-21] MEDS ORDERED: SILVER NITRATE APPLICATOR 1 EA BOX TP STA (12:47)
[2022-02-21] MEDS ORDERED: LIDOCAINE 1%-EPI 1:100,000 20 ML VIAL TP ONE (13:00)
[2022-02-21 16:00] VITALS: BP 167/85
[2022-02-21] MEDS: ATORVASTATIN 10 MG TABLET PO SCH (17:16)
--- NOTE | 2022-02-21 17:29 | NUR ---
RN NOTES: PATIENT OFFERED METHADONE ORDERED, PATIENT REFUSED. EXPLAINED THE RISK AND BENEFITS , VERBALIZED UNDERSTANDING. METHADONE NOT PULLED OUT FROM [facility].
--- NOTE | 2022-02-21 19:11 | NUR ---
MS RN CLOSING NOTES: PATIENT AWAKE IN BED. A/O X4 AND ABLE TO VERBALIZED NEEDS. NO SOB OR CARDIAC DISTRESS NOTED, ON ROOM AIR AND TOLERATING WELL. BREATHING EVEN AND UNLABORED. IV ACCESS AMOR PICC LINE SL, INTACT AND PATENT. HENDERSON CATHETER INTACT DRAINING YELLOW COLORED URINE. ON PAIN MANAGEMENT. SAFETY PRECAUTIONS IN PLACE. BED IN LOWEST LOCKED POSITION, HOB ELEVATED, SIDE RAILS UP X2, AND CALL LIGHT AND TABLE WITHIN REACH. KEPT RESTED AND COMFORTABLE.ENDORSED TO IT AUDITOR NURSE FOR MARC.
--- NOTE | 2022-02-21 19:57 | NUR ---
MS RN OPENING NOTES: PATIENT AWAKE IN BED. A/O X4 AND ABLE TO VERBALIZED NEEDS. NO SOB OR CARDIAC DISTRESS NOTED, ON ROOM AIR AND TOLERATING WELL. BREATHING EVEN AND UNLABORED. IV ACCESS AMOR PICC LINE SL, INTACT AND PATENT. HENDERSON CATHETER INTACT DRAINING YELLOW COLORED URINE. ON PAIN MANAGEMENT. PT HAVING 9/10 PAIN OF RIGHT KNEE PRN OXY GIVEN AND TOLERATED WELL. SAFETY PRECAUTIONS IN PLACE. BED IN LOWEST LOCKED POSITION, HOB ELEVATED, SIDE RAILS UP X2, AND CALL LIGHT AND TABLE WITHIN REACH. KEPT RESTED AND COMFORTABLE WILL CONTINUE TO MONITOR.
[2022-02-21 20:00] VITALS: BP 135/76
--- NOTE | 2022-02-21 21:10 | NUR ---
MS RN NOTES PRN DILAUDID GIVEN FOR PAIN TOLERATED WELL. WILL CONTINUE TO MONITOR.
--- NOTE | 2022-02-21 21:58 | NUR ---
MS RN NOTES CHANGE OR CARE REPORT GIVEN TO LINDA GAINES.
[2022-02-21] MEDS: DRONABINOL (2.5 MG) 2.5 MG CAPSULE PO SCH (22:43)
[2022-02-22] MEDS: ZOSYN IVPB 3.375 G in IV D5W 50ml IV SCH ×4 (00:18→18:37)
[2022-02-22] MEDS: HYDROMORPHONE 1 MG/1 ML DISP.SYRIN IV PRN ×6 (00:54→21:18)
[2022-02-22] MEDS: oxyCODONE IR immediate release 5 MG PO PRN ×7 (01:59→22:34)
--- NOTE | 2022-02-22 07:01 | NUR ---
RN NOTE PT AWAKE IN BED, WATCHING TV. A/OX4. RESPIRATIONS EVEN/UNLABORED. PAIN WELL CONTROLLED WITH PRN PAIN MEDS. PT SLEEPS INTERMITTENTLY DURING THE NIGHT. F/C DRAINING CLEAR YELLOW OUTPUT 1800 THIS SHIFT. PT IN NO ACUTE DISTRESS. ALL NEEDS ATTENDED TO. SAFETY MEASURES MAINTAINED.
--- NOTE | 2022-02-22 07:10 | NUR ---
WOUND CARE: DISCUSSED WOUND TREATMENT WITH SURGICAL P.A. AND WOUND VAC TO BE RESTARTED TODAY. ORDER PLACED.
--- NOTE | 2022-02-22 07:20 | NUR ---
RN OPENING NOTES PATIENT AWAKE IN BED, WATCHING TV. A/OX4. ON RA WITH RESPIRATIONS EVEN/UNLABORED. PAIN MANAGED WELL AT THIS TIME. R UPPER ARM PICC INTACT AND PATENT. RIGHT KNEE DRESSING C/D/I. SAFETY MEASURES IN PLACE. WILL CONTINUE PLAN OF CARE
[2022-02-22] MEDS: METHADONE HCL 10 MG TABLET PO SCH ×2 (07:34→17:19)
[2022-02-22 08:00] VITALS: BP 150/88
[2022-02-22] MEDS: ASPIRIN 325 MG TABLET PO SCH (08:55)
[2022-02-22] MEDS: FAMOTIDINE (20 MG) 20 MG TABLET PO SCH (08:55)
[2022-02-22] MEDS: GABAPENTIN 300 MG CAPSULE PO SCH ×3 (08:55→17:18)
[2022-02-22 08:56] LABS: CALCIUM, SERUM 8.8 mg/dL (8.5-10.1); CREATININE 1.2 mg/dL (0.6-1.3); POTASSIUM 3.4 mmol/L (3.5-5.1)
[2022-02-22] MEDS: CLONIDINE HCL 0.1 MG TABLET PO SCH ×3 (08:59→17:00)
[2022-02-22] MEDS: METOPROLOL SUCCINATE 50 MG TAB.SR.24H PO SCH (09:00)
[2022-02-22] MEDS: DOCUSATE SODIUM 100 MG CAPSULE PO SCH (09:00)
[2022-02-22] MEDS: hydrALAZINE HCL 50 MG TABLET PO SCH ×3 (09:00→17:00)
[2022-02-22] MEDS: DAKINS QUARTER STRENGTH (0.125%) 480 ML BOTTLE TOP SCH (09:25)
[2022-02-22] MEDS: Z GUARD REMEDY 4 OZ OINT TP SCH (09:26)
[2022-02-22] MEDS: CLOTRIMAZOLE 1% 15 GM TUBE TP SCH ×2 (09:26→17:21)
--- NOTE | 2022-02-22 10:09 | NUR ---
WOUND CARE: [facility] WOUND VAC RESTARTED TO RT KNEE WOUND. WOUND MEASUREMENTS ARE 10CM X 8CM X 2.5CM DEPTH WITH RED GRANULATION TISSUE AND VERY SMALL AREA OF ABREU AND YELLOW TISSUE. DRAINAGE IS SMALL AMOUNT OF SEROSANGUINOUS, NO ODOR. SKIN PREP AND VAC DRAPE WAS APPLIED TO PERIWOUND AREAS. VAC AT 125mmHg CONTINUOUS SETTING. PLAN NEXT DRESSING CHANGE MONDAY. PT TOLERATED WELL.
--- NOTE | 2022-02-22 12:55 | NUR ---
LINDA NOTES PATIENT REFUSED TO TAKE HYDRALAZINE AND CLOZAPINE. BP IS 120/69. WILL CONTINUE TO MONITOR Addendum: 02/22/22 at 1927 by NEHA PRESTON RN CLONIDINE, NOT CLOZAPINE ERROR DOCUMENTATION
--- NOTE | 2022-02-22 15:55 | NUR ---
RN NOTES PATIENT REQUESTED DILAUDID AND THEN CHANGED HER MIND TO TAKE OXY INSTEAD. MEDICATION RETURNED WITH ANOTHER RN WITNESS.
[2022-02-22 16:00] VITALS: BP 131/70
[2022-02-22] MEDS: ATORVASTATIN 10 MG TABLET PO SCH (17:18)
--- NOTE | 2022-02-22 19:00 | NUR ---
RN NOTES WOUND VACC OUTPUT 20ML
--- NOTE | 2022-02-22 19:00 | NUR ---
RN NOTES HENDERSON OUTPUT 800ML CLEAR YELLOW URINE FOR TODAYS SHIFT
--- NOTE | 2022-02-22 19:33 | NUR ---
MS RN OPENING NOTES RECEIVED PATIENT RESTING IN BED, COMPLAINT OF PAIN; A/OX4, ABLE TO MAKE NEEDS KNOWN; AM SHIFT ADMINISTERED PAIN MED, WILL RE-ASSESS PAIN LEVEL THROUGHOUT SHIFT; AMOR PICC LINE INTACT, NO S/S OF REDNESS OR INFILTRATION NOTED; FLUSHING WELL; WOUND VAC IN PLACE, (PER AM SHIFT, RE-APPLIED AGAIN THIS AM). HENDERSON CATH NOTED WITH YELLOW OUTPUT; SAFETY PRECAUTIONS IMPLEMENTED; BED LOCKED IN LOW POSITION; SIDE RAILSX3, CALL LIGHT WITHIN REACH; WILL CONT PLAN OF CARE
[2022-02-22 20:00] VITALS: BP 134/65
[2022-02-22] MEDS: DRONABINOL (2.5 MG) 2.5 MG CAPSULE PO SCH (21:18)
[2022-02-23] MEDS: ZOSYN IVPB 3.375 G in IV D5W 50ml IV SCH ×4 (00:18→18:23)
[2022-02-23] MEDS: oxyCODONE IR immediate release 5 MG PO PRN ×7 (02:40→23:19)
[2022-02-23] MEDS: HYDROMORPHONE 1 MG/1 ML DISP.SYRIN IV PRN ×7 (04:22→23:20)
--- NOTE | 2022-02-23 05:29 | NUR ---
MS RN NOTES PAIN MANAGEMENT DONE THROUGHOUT SHIFT, PATIENT ABLE TO MAKE NEEDS KNOWN; A/OX4. VSS; BREATHING EVEN AND UNLABORED, NO SOB NOTED; TOLERATING ROOM AIR; 161/85, HR:70
[2022-02-23] MEDS: METHADONE HCL 10 MG TABLET PO SCH ×3 (05:35→18:23)
--- NOTE | 2022-02-23 05:56 | NUR ---
MS RN NOTES PATIENT UPSET BECAUSE PRN PAIN MEDICATIONS HAVE NOT BEEN GIVEN "EXACTLY WHEN IT IS DUE". PATIENT AGREED TO TAKE SCHEDULED METHADONE 0600, PATIENT DENYING EVER AGREEING, PER PATIENT SHE TAKES OXY IR FIRST AND THEN METHADONE AT 0700, SO SHE WILL BE ABLE TO GET A BED BATH; CHARGE NURSE AWARE; RE-EDUCATED PATIENT ON MEDICATION REGIME AND TREATMENT PLAN; PER CHARGE NURSE, PATIENT HAS BEEN CHANGING HER MIND REGARDING METHADONE; CONFIRMED WITH PATIENT LAST NIGHT AND PRIOR TO ADMINISTERING MEDICATION IF SHE WOULD LIKE METHADONE NEXT PAIN MANAGEMENT, PATIENT AGREED THEN AND RETRACTED; PATIENT AGREED TO TAKE SCHEDULED METHADONE;
--- NOTE | 2022-02-23 07:04 | NUR ---
MS RN CLOSING NOTES PATIENT RESTING IN BED, A/OX4 COMPLAINT OF PAIN; PATIENT IS UPSET; WANTS HER OXY IR PAIN MEDICATION NOW, PATIENT HAS BEEN EDUCATED AND RE-EDUCATED REGARDING MEDICATION REGIME AND TREATMENT PLAN; PATIENT UPSET, ALSO WANTS BED BATH TO BE DONE AND UPSET WE ARE UNABLE TO GIVE IT TO HER DURING THE TIME SHE WANTS IT NOW; PATIENT SPOKE WITH CHARGE NURSE SEVERAL TIMES; AND TO SENIOR CIVIL ENGINEER, REPORTED THAT STAFF HAD TOLD HER SHE WOULD BE ABLE TO GET HER PAIN MEDICATION 30 MINUTES AFTER THE OTHER JUST THIS TIME AROUND; PATIENT WAS INFORMED PER HOSPITAL POLICY PAIN MEDICATIONS HAVE TO BE GIVEN AT LEAST 1 HOUR APART; PATIENT STILL UPSET SAID "OKAY IF IT ISNT DUE YET THEN WHATS THE PROBLEM? WHY ARE YOU STILL IN MY ROOM THEN?" CHARGE NURSE AWARE; AMOR PICC LINE INTACT, NO S/S OF REDNESS OR INFILTRATION NOTED; FLUSHING WELL; WOUND VAC IN PLACE WITH MINIMAL OUTPUT; HENDERSON CATH NOTED WITH YELLOW OUTPUT; SAFETY PRECAUTIONS IMPLEMENTED; BED LOCKED IN LOW POSITION; SIDE RAILSX3, CALL LIGHT WITHIN REACH; WILL ENDORSE MARC TO ONCOMING SHIFT
[2022-02-23 07:13] LABS: CALCIUM, SERUM 8.8 mg/dL (8.5-10.1); CREATININE 1.1 mg/dL (0.6-1.3); POTASSIUM 3.3 mmol/L (3.5-5.1)
--- NOTE | 2022-02-23 07:15 | NUR ---
MS RN OPENING NOTE RECEIVED PATIENT RESTING IN BED. PATIENT JULIANA/OX4, ABLE TO MAKE NEEDS KNOWN; PATIENT ON PAIN MANAGEMENT. ON ROOM AIR, WITH EVEN AN EQUAL BREATHING. AMOR PICC LINE INTACT, NO S/S OF REDNESS OR INFILTRATION, FLUSHING WELL NOTED; WOUND VAC IN PLACE. HENDERSON CATH NOTED WITH YELLOW OUTPUT; SAFETY PRECAUTIONS IMPLEMENTED; BED LOCKED IN LOW POSITION; SIDE RAILSX3, CALL LIGHT WITHIN REACH
[2022-02-23 08:00] VITALS: BP 153/97
[2022-02-23] MEDS: GABAPENTIN 300 MG CAPSULE PO SCH ×3 (08:21→17:03)
[2022-02-23] MEDS: ASPIRIN 325 MG TABLET PO SCH (08:21)
[2022-02-23] MEDS: METOPROLOL SUCCINATE 50 MG TAB.SR.24H PO SCH (08:22)
[2022-02-23] MEDS: CLONIDINE HCL 0.1 MG TABLET PO SCH ×3 (08:23→17:00)
[2022-02-23] MEDS: FAMOTIDINE (20 MG) 20 MG TABLET PO SCH (08:23)
[2022-02-23] MEDS: hydrALAZINE HCL 50 MG TABLET PO SCH ×3 (08:23→17:00)
[2022-02-23] MEDS: CLOTRIMAZOLE 1% 15 GM TUBE TP SCH ×2 (08:33→17:08)
[2022-02-23] MEDS: DAKINS QUARTER STRENGTH (0.125%) 480 ML BOTTLE TOP SCH (08:33)
[2022-02-23] MEDS: Z GUARD REMEDY 4 OZ OINT TP PRN ×2 (08:33→17:08)
[2022-02-23] MEDS: Z GUARD REMEDY 4 OZ OINT TP SCH (09:00)
[2022-02-23] MEDS: DOCUSATE SODIUM 100 MG CAPSULE PO SCH (09:00)
--- NOTE | 2022-02-23 09:50 | NUR ---
MS RN NOTE SEEN BY DR. LIVINGSTON. IN STABLE CONDITION.
[2022-02-23] MEDS ORDERED: POTASSIUM CHLORIDE 20 MEQ TAB.PRT.SR PO SCH (11:00)
--- NOTE | 2022-02-23 11:41 | NUR ---
WOUND CARE: WOUND VAC FUNCTIONING WELL AT 125mmHg CONTINUOUS SETTING TO RT KNEE WOUND. APPROXIMATELY 50cc PINK DRAINAGE IN CANISTER. WILL FOLLOW.
[2022-02-23 16:00] VITALS: BP 116/63
[2022-02-23] MEDS: ATORVASTATIN 10 MG TABLET PO SCH (18:22)
--- NOTE | 2022-02-23 19:00 | NUR ---
MS RN CLOSING NOTE PATIENT WITH AT BEDSIDE. PATIENT IS A/OX4, ABLE TO MAKE NEEDS KNOWN; PATIENT ON PAIN MANAGEMENT, NO COMPLAIN OF MODERATE TO SEVERE PAIN AT THIS TIME. ON ROOM AIR, WITH EVEN AN EQUAL BREATHING. AMOR PICC LINE INTACT, NO S/S OF REDNESS OR INFILTRATION, FLUSHING WELL NOTED; WOUND VAC IN PLACE. HENDERSON CATH NOTED WITH YELLOW OUTPUT; SAFETY PRECAUTIONS IMPLEMENTED; BED LOCKED IN LOW POSITION; SIDE RAILSX3, CALL LIGHT WITHIN REACH. ENDORSED PATIENT TO NEXT SHIFT FOR CONTINUITY OF CARE.
--- NOTE | 2022-02-23 19:00 | NUR ---
received patient in bed awake and alert right knee with wound vac dressing clean and drt right foot warm to touch ppp and sensation present requisting pain medication
[2022-02-23 20:00] VITALS: BP 167/81
[2022-02-23] MEDS: DRONABINOL (2.5 MG) 2.5 MG CAPSULE PO SCH (21:18)
[2022-02-24] MEDS: ZOSYN IVPB 3.375 G in IV D5W 50ml IV SCH ×5 (00:06→23:34)
[2022-02-24] MEDS: oxyCODONE IR immediate release 5 MG PO PRN ×7 (01:55→23:34)
[2022-02-24] MEDS: METHADONE HCL 10 MG TABLET PO SCH ×2 (06:36→18:00)
[2022-02-24 06:59] LABS: CALCIUM, SERUM 8.9 mg/dL (8.5-10.1); CREATININE 1.1 mg/dL (0.6-1.3); POTASSIUM 3.4 mmol/L (3.5-5.1)
--- NOTE | 2022-02-24 07:25 | NUR ---
MS RN OPENING NOTE RECEIVED PT IN BED ASLEEP, EASILY AROUSED. A/O X4, ABLE TO MAKE NEEDS KNOWN. ON RA, TOLERATING WELL. BREATHING EVEN AND UNLABORED. HENDERSON CATH INTACT AND DRAINING WELL. IV ACCESS IN AMOR PICCLINE, INTACT AND PATENT. SAFETY MEASURES IN PLACE: BED IN LOWEST AND LOCKED POSITION, SIDE RAILS UP X2, AND CALL LIGHT WITHIN REACH. WILL CONTINUE TO MONITOR PT.
[2022-02-24 08:00] VITALS: BP 165/87
[2022-02-24] MEDS: GABAPENTIN 300 MG CAPSULE PO SCH ×3 (08:07→16:24)
[2022-02-24] MEDS: FAMOTIDINE (20 MG) 20 MG TABLET PO SCH (08:07)
[2022-02-24] MEDS: ASPIRIN 325 MG TABLET PO SCH (08:07)
[2022-02-24] MEDS: DOCUSATE SODIUM 100 MG CAPSULE PO SCH (08:07)
[2022-02-24] MEDS: METOPROLOL SUCCINATE 50 MG TAB.SR.24H PO SCH (08:08)
[2022-02-24] MEDS: CLONIDINE HCL 0.1 MG TABLET PO SCH ×3 (08:08→16:24)
[2022-02-24] MEDS: hydrALAZINE HCL 50 MG TABLET PO SCH ×3 (08:08→16:24)
[2022-02-24] MEDS: Z GUARD REMEDY 4 OZ OINT TP PRN (09:06)
[2022-02-24] MEDS: CLOTRIMAZOLE 1% 15 GM TUBE TP SCH ×2 (09:06→16:28)
[2022-02-24] MEDS: DAKINS QUARTER STRENGTH (0.125%) 480 ML BOTTLE TOP SCH (09:07)
[2022-02-24] MEDS: HYDROMORPHONE 1 MG/1 ML DISP.SYRIN IV PRN ×3 (09:11→19:44)
[2022-02-24] MEDS: Z GUARD REMEDY 4 OZ OINT TP SCH (09:19)
[2022-02-24] MEDS ORDERED: POTASSIUM CHLORIDE 20 MEQ TAB.PRT.SR PO SCH (10:00)
[2022-02-24] MEDS: ATORVASTATIN 10 MG TABLET PO SCH (17:32)
--- NOTE | 2022-02-24 18:33 | NUR ---
MS RN CLOSING NOTE PT IN BED AWAKE WATCHING TV. A/O X4, ABLE TO MAKE NEEDS KNOWN. ON RA, TOLERATING WELL. BREATHING EVEN AND UNLABORED. HENDERSON CATH INTACT AND DRAINING WELL. IV ACCESS IN AMOR PICCLINE, INTACT AND PATENT. ALL NEEDS ATTENDED. KEPT CLEAN AND COMFORTABLE. SAFETY MEASURES IN PLACE: BED IN LOWEST AND LOCKED POSITION, SIDE RAILS UP X2, AND CALL LIGHT WITHIN REACH. WILL ENDORSE TO BASKET BRAIDER NURSE FOR MARC.
--- NOTE | 2022-02-24 19:30 | NUR ---
RN OPENING NOTES RECEIVED PT IN BED, AWAKE, WITH AT BEDSIDE. AOx4, ABLE TO MAKE NEEDS KNOWN. ON RA AND TOLERATING WELL. NO SOB NOTED. NO S/SX OF RESPIRATORY DISTRESS NOTED. IV ACCESS IN AMOR PICC LINE. IV IS INTACT, PATENT, AND FLUSHING WELL. SAFETY PRECAUTIONS IN PLACE: BED IN LOWEST, LOCKED POSITION, SIDERAILS UPx2, AND BRAKES ON. TABLE AND CALL LIGHT WITHIN REACH. WILL CONTINUE TO MONITOR.
--- NOTE | 2022-02-24 19:45 | NUR ---
RN NOTES ADMINISTERED DILAUDID FOR PAIN PER MD ORDER. VS WNL. WILL CONTINUE TO MONITOR.
[2022-02-24 20:00] VITALS: BP 131/72
--- NOTE | 2022-02-24 20:41 | NUR ---
RN NOTES ADMINISTERED OXYCODONE FOR PAIN PER MD ORDER. WILL CONTINUE TO MONITOR.
[2022-02-24] MEDS: DRONABINOL (2.5 MG) 2.5 MG CAPSULE PO SCH (21:43)
--- NOTE | 2022-02-24 23:35 | NUR ---
RN NOTES ADMINISTERED OXYCODONE FOR PAIN PER MD ORDER. WILL CONTINUE TO MONITOR
[2022-02-25] MEDS: HYDROMORPHONE 1 MG/1 ML DISP.SYRIN IV PRN ×5 (00:37→19:35)
--- NOTE | 2022-02-25 00:37 | NUR ---
RN NOTES ADMINISTERED DILAUDID FOR PAIN PER MD ORDER. VS WNL. WILL CONTINUE TO MONITOR.
[2022-02-25] MEDS: oxyCODONE IR immediate release 5 MG PO PRN ×6 (02:44→21:42)
--- NOTE | 2022-02-25 02:44 | NUR ---
RN NOTES ADMINISTERED OXYCODONE FOR PAIN PER MD ORDER. WILL CONTINUE TO MONITOR
[2022-02-25] MEDS: ZOSYN IVPB 3.375 G in IV D5W 50ml IV SCH ×3 (05:05→18:08)
--- NOTE | 2022-02-25 05:05 | NUR ---
RN NOTES ADMINISTERED DILAUDID FOR PAIN PER MD ORDER. VS WNL. WILL CONTINUE TO MONITOR.
[2022-02-25] MEDS: METHADONE HCL 10 MG TABLET PO SCH ×2 (06:11→18:00)
--- NOTE | 2022-02-25 06:14 | NUR ---
RN NOTES ADMINISTERED METHADONE PER MD ORDER.
--- NOTE | 2022-02-25 06:46 | NUR ---
RN CLOSING NOTES PT IN BED, AWAKE, WATCHING TV. AOx4, ABLE TO MAKE NEEDS KNOWN. ON RA AND TOLERATING WELL. NO SOB NOTED. NO S/SX OF RESPIRATORY DISTRESS NOTED. IV ACCESS IN AMOR PICC LINE. IV IS INTACT, PATENT, AND FLUSHING WELL. ALL ORDERS CARRIED OUT. ALL NEEDS MET. PT KEPT CLEAN AND DRY. TREATED PAIN THROUGHOUT SHIFT. SAFETY PRECAUTIONS IN PLACE: BED IN LOWEST, LOCKED POSITION, SIDERAILS UPx2, AND BRAKES ON. TABLE AND CALL LIGHT WITHIN REACH. WILL ENDORSE TO ONCOMING SHIFT FOR MARC.
--- NOTE | 2022-02-25 08:00 | NUR ---
MS RN OPENING NOTE PATIENT RECEIVED IN BED AND INTERMITTENTLY SLEEPING. A/O X4. NO S/SX OF RESPIRATORY DISTRESS. C/O PAIN TO RIGHT KNEE 10/10 ON PAIN SCALE. PRN PAIN MEDICATION RECEIVED. WILL F/U MEDICATION EFFECTIVENESS. NO OTHER DISTRESS OBSERVED OR REPORTED. BED IN LOWEST POSITION, SIDERAILS UPX2, CALL LIGHT WITHIN REACH. WILL CONTINUE TO MONITOR.
[2022-02-25] MEDS: DOCUSATE SODIUM 100 MG CAPSULE PO SCH (09:00)
[2022-02-25] MEDS: FAMOTIDINE (20 MG) 20 MG TABLET PO SCH (09:05)
[2022-02-25] MEDS: ASPIRIN 325 MG TABLET PO SCH (09:05)
[2022-02-25] MEDS: CLONIDINE HCL 0.1 MG TABLET PO SCH ×3 (09:05→17:37)
[2022-02-25] MEDS: hydrALAZINE HCL 50 MG TABLET PO SCH ×3 (09:06→17:37)
[2022-02-25] MEDS: METOPROLOL SUCCINATE 50 MG TAB.SR.24H PO SCH (09:06)
[2022-02-25] MEDS: GABAPENTIN 300 MG CAPSULE PO SCH ×3 (09:06→17:37)
[2022-02-25] MEDS: CLOTRIMAZOLE 1% 15 GM TUBE TP SCH ×2 (09:07→17:41)
[2022-02-25] MEDS: Z GUARD REMEDY 4 OZ OINT TP PRN (09:07)
[2022-02-25] MEDS: DAKINS QUARTER STRENGTH (0.125%) 480 ML BOTTLE TOP SCH (09:07)
[2022-02-25] MEDS: Z GUARD REMEDY 4 OZ OINT TP SCH (09:09)
[2022-02-25 10:16] LABS: CALCIUM, SERUM 8.8 mg/dL (8.5-10.1); CREATININE 1.2 mg/dL (0.6-1.3)
[2022-02-25 10:28] LABS: POTASSIUM 3.2 mmol/L (3.5-5.1)
[2022-02-25] MEDS: ATORVASTATIN 10 MG TABLET PO SCH (17:37)
--- NOTE | 2022-02-25 18:13 | NUR ---
RN CLOSING NOTE PATIENT REMAINS A/O X4. OBSERVED THROUGHOUT SHIFT INTERMITTENTLY RESTING IN BED . NO S/SX OF RESPIRATORY DISTRESS OR SOB OBSERVED. PATIENT HAD MULTIPLE C/O PAIN TO AFFECTED RIGHT KNEE WITH PAIN LEVEL BETWEEN 9-10/10 ON NUMERICAL PAIN SCALE. PATIENT RECEIVED PRN DOSES OF DILAUDID @ 0925/1337 & OXY @ 0755/1145/1745. MEDICATIONS MINIMALLY EFFECTIVE PER PATIENT REPORT. PATIENT REFUSED SCHEDULED 1800 METHADONE; STATES SHE ONLY LIKES TAKING IT IN THE MORNING. WOUND VAC TO AFFECTED RIGHT KNEE REMAINS INTACT AND RUNNING. PICC LINE TO AMOR REMAINS PATENT AND FLUSHING WELL WITH NO S/SX OF INFILTRATION. HENDERSON CATHETER IN TACT AND FLOWING WELL. VITAL STABLE AND WNL. SAFETY MEASURES IN PLACE WITH BED AT LOWEST POSTITION AND LOCKED. CALL LIGHT WITHIN REACH, AND SIDRAIL UP X2. WILL CONTINUE TO MONITOR.
--- NOTE | 2022-02-25 19:42 | NUR ---
MS RN OPENING NOTE RECEIVED PATIENT IN BED, A/OX4. NO S/S OF APPARENT DISTRESS IN ROOM AIR. C/O 05/23 PAIN IN R. KNEE-- DILAUDID GIVEN. NO FLUIDS RUNNING AT THIS TIME ON AMOR PICC LINE. HENDERSON CATH NOTED IN PLACE. WOUND VAC NOTED TO BE DRAINING SEROSANGUINEOUS OUTPUT. SAFETY IN PLACE. ORIENTED AND ENCOURAGED WITH THE USE OF CALL LIGHT. WILL CONTINUE WITH PLAN OF CARE FOR PATIENT.
[2022-02-25 20:04] VITALS: BP 127/71
[2022-02-25] MEDS: DRONABINOL (2.5 MG) 2.5 MG CAPSULE PO SCH (21:41)
[2022-02-26] MEDS: ZOSYN IVPB 3.375 G in IV D5W 50ml IV SCH ×5 (00:35→23:42)
[2022-02-26] MEDS: HYDROMORPHONE 1 MG/1 ML DISP.SYRIN IV PRN ×6 (00:41→22:53)
[2022-02-26] MEDS: oxyCODONE IR immediate release 5 MG PO PRN ×6 (03:38→21:14)
[2022-02-26] MEDS: METHADONE HCL 10 MG TABLET PO SCH ×2 (06:05→17:20)
--- NOTE | 2022-02-26 06:31 | NUR ---
MS RN CLOSING NOTE PATIENT IN BED WITH EYES CLOSED. EASY TO AROUSE. A/OX4 AND ABLE TO MAKE NEEDS KNOWN. NEEDS ATTENDED. NO S/S OF APPARENT DISTRESS IN ROOM AIR. PAIN MANAGED WITH MEDICATIONS. R. KNEE DRESSING CLEAN, DRY, AND INTACT-- WOUND WAC DRAINING SEROSANGUINEOUS OUTPUT. HENDERSON CATH DRAINING CLEAR YELLOW URINE. ALL SCHEDULED MEDICATIONS ADMINISTERED. SAFETY KEPT IN PLACE THE WHOLE SHIFT. WILL ENDORSE TO MORNING SHIFT RN FOR CONTINUITY OF CARE.
[2022-02-26 06:48] LABS: CALCIUM, SERUM 8.7 mg/dL (8.5-10.1); CREATININE 1.1 mg/dL (0.6-1.3); POTASSIUM 3.5 mmol/L (3.5-5.1)
--- NOTE | 2022-02-26 07:30 | NUR ---
MS RN OPENING NOTES RECEIVED PATIENT ON BED AWAKE AND A/O X4. ON ROOM AIR TOLERATING WELL. NO SOB NOTED. NOT IN DISTRESS. WITH IV ACCESS AT THE RIGHT UPPER ARM PICC LINE SALINE LOCKED, PATENT AND INTACT. SAFETY MEASURES IN PLACED, CALL LIGHT WITHIN REACH. BED ON LOWEST LOCKED POSITION, SIDE RAILS UP X2. WILL CONTINUE TO MONITOR.
[2022-02-26 08:00] VITALS: BP 163/87
[2022-02-26] MEDS: ASPIRIN 325 MG TABLET PO SCH (08:36)
[2022-02-26] MEDS: GABAPENTIN 300 MG CAPSULE PO SCH ×3 (08:37→17:19)
[2022-02-26] MEDS: hydrALAZINE HCL 50 MG TABLET PO SCH ×3 (08:37→17:00)
[2022-02-26] MEDS: FAMOTIDINE (20 MG) 20 MG TABLET PO SCH (08:38)
[2022-02-26] MEDS: CLONIDINE HCL 0.1 MG TABLET PO SCH ×3 (08:38→17:00)
[2022-02-26] MEDS: METOPROLOL SUCCINATE 50 MG TAB.SR.24H PO SCH (08:40)
[2022-02-26] MEDS: DOCUSATE SODIUM 100 MG CAPSULE PO SCH (09:00)
[2022-02-26] MEDS: DAKINS QUARTER STRENGTH (0.125%) 480 ML BOTTLE TOP SCH (09:02)
[2022-02-26] MEDS: Z GUARD REMEDY 4 OZ OINT TP SCH (09:03)
[2022-02-26] MEDS: CLOTRIMAZOLE 1% 15 GM TUBE TP SCH ×2 (09:03→17:19)
--- NOTE | 2022-02-26 14:50 | NUR ---
RN NOTE PATIENT HAS BEEN COMPLAINING OF RIGHT KNEE SHARP AND EXCRUCIATING PAIN THAT IS DIFFERENT FROM BEFORE. THE SKIN SURROUNDING THE AFFECTED AREA IS WARM TO TOUCH. REPORTED TO DR. STRINGER. WILL MONITOR.
[2022-02-26 16:00] VITALS: BP 131/63
[2022-02-26] MEDS: ATORVASTATIN 10 MG TABLET PO SCH (17:18)
--- NOTE | 2022-02-26 18:21 | NUR ---
MS RN CLOSING NOTES PATIENT ON BED RESTING ON BED AND A/O X4. ON ROOM AIR TOLERATING WELL. NO SOB NOTED. NOT IN DISTRESS. WITH IV ACCESS AT THE RIGHT UPPER ARM PICC LINE SALINE LOCKED, PATENT AND INTACT. DUE MEDS GIVEN. SAFETY MEASURES IN PLACED, CALL LIGHT WITHIN REACH. BED ON LOWEST LOCKED POSITION, SIDE RAILS UP X2. WILL ENDORSE TO NEXT SHIFT FOR MARC.
--- NOTE | 2022-02-26 18:25 | NUR ---
RN NOTE DR. STRINGER ORDERED FOR US DOPPLER FOR RIGHT KNEE STAT FOR PATIENT'S COMPLAINT OF EXCRUCIATING KNEE PAIN EVEN THOUGH SHE'S BEEN TAKING PAIN MEDS.
--- NOTE | 2022-02-26 19:44 | NUR ---
MS RN OPENING NOTES RECEIVED PATIENT ON BED AA/O X4. ON ROOM AIR TOLERATING WELL. NO SOB/DISTRESS NOTED.WITH IV ACCESS AT THE RIGHT UPPER ARM PICC LINE SALINE LOCKED, PATENT AND INTACT. SAFETY MEASURES IN PLACED, CALL LIGHT WITHIN REACH. BED ON LOWEST LOCKED POSITION, SIDE RAILS UP X2. WILL CONTINUE TO MONITOR.
[2022-02-26 20:30] VITALS: BP 148/81
[2022-02-26] MEDS: DRONABINOL (2.5 MG) 2.5 MG CAPSULE PO SCH (21:13)
[2022-02-27] MEDS: oxyCODONE IR immediate release 5 MG PO PRN ×7 (00:27→21:58)
--- NOTE | 2022-02-27 05:00 | NUR ---
RN NOTES PT COMPLAINED OF PAIN ON RLEG 9/10.PRN OXYCODONE 40MG WAS GIVEN.NO SIGN A/R NOTED.
[2022-02-27] MEDS: ZOSYN IVPB 3.375 G in IV D5W 50ml IV SCH ×3 (05:08→19:00)
[2022-02-27] MEDS: METHADONE HCL 10 MG TABLET PO SCH ×2 (06:08→18:00)
--- NOTE | 2022-02-27 06:25 | NUR ---
RN NOTES PT COMPLAINED OF PAIN ON THE R LEG 10/.PRN DILUADID IMG INJ.NO SIGN A/R NOTED.
[2022-02-27] MEDS: HYDROMORPHONE 1 MG/1 ML DISP.SYRIN IV PRN ×4 (06:26→19:44)
--- NOTE | 2022-02-27 07:30 | NUR ---
MS RN OPENING NOTES RECEIVED PATIENT IN BED AWAKE,A/O X4, ABLE TO MAKE NEEDS KNOWN. PT ON ROOM AIR TOLERATING WELL. NO SOB OR ACUTE DISTRESS NOTED. IV ACCESS AT THE RIGHT UPPER ARM PICC LINE SALINE LOCKED, PATENT AND INTACT. WOUND VAC DRAINING SERO-SANGUINOUS FLUID, HENDERSON DRAINING CLEAR, YELLOW URINE. SAFETY MEASURES IN PLACE, CALL LIGHT WITHIN REACH. BED ON LOWEST LOCKED POSITION, SIDE RAILS UP X2. WILL CONTINUE TO MONITOR.
[2022-02-27 07:53] LABS: CALCIUM, SERUM 7.5 mg/dL (8.5-10.1); CREATININE 1.1 mg/dL (0.6-1.3); POTASSIUM 2.9 mmol/L (3.5-5.1)
[2022-02-27 08:00] VITALS: BP 130/80
[2022-02-27] MEDS: METOPROLOL SUCCINATE 50 MG TAB.SR.24H PO SCH (08:54)
[2022-02-27] MEDS: GABAPENTIN 300 MG CAPSULE PO SCH ×3 (08:55→17:06)
[2022-02-27] MEDS: FAMOTIDINE (20 MG) 20 MG TABLET PO SCH (08:55)
[2022-02-27] MEDS: hydrALAZINE HCL 50 MG TABLET PO SCH ×3 (08:55→17:07)
[2022-02-27] MEDS: ASPIRIN 325 MG TABLET PO SCH (08:55)
[2022-02-27] MEDS: DOCUSATE SODIUM 100 MG CAPSULE PO SCH (08:56)
[2022-02-27] MEDS: CLONIDINE HCL 0.1 MG TABLET PO SCH ×3 (08:59→17:06)
--- NOTE | 2022-02-27 09:00 | NUR ---
MS RN NOTES: WEIGHED PT USING BEDSCALE, REMOVED WOUND VAC, BED PUMP AND HENDERSON FOR ACCURATE WIEGHT.
[2022-02-27] MEDS: DAKINS QUARTER STRENGTH (0.125%) 480 ML BOTTLE TOP SCH (09:15)
[2022-02-27] MEDS: Z GUARD REMEDY 4 OZ OINT TP PRN ×3 (09:15→10:10)
[2022-02-27] MEDS: CLOTRIMAZOLE 1% 15 GM TUBE TP SCH ×2 (09:16→17:08)
[2022-02-27] MEDS: Z GUARD REMEDY 4 OZ OINT TP SCH (10:13)
[2022-02-27] MEDS ORDERED: POTASSIUM CHLORIDE 20 MEQ TAB.PRT.SR PO SCH (10:30)
[2022-02-27] MEDS: POTASSIUM CL. PREMIX PERIPHER. 50 ML IV SCH ×2 (10:40→11:59)
--- NOTE | 2022-02-27 15:13 | NUR ---
MS RN NOTE: 02/27/2022- 1041 AM DILAUDID 1 MG NOT DOCUMENTED DUE TO RN FORGOT TO SCAN. SPOKE TO PHARMACY COLLETTE AND SUPPORT ANALYST FOR ADVISE. PER COLLETTE, PHARMACY STAFF AND SUPPORT ANALYST, OK TO DOCUMENT ON NURSES NOTES. MEDICATION BARCODE# [id number], EXP 09/14/2023- RN VERIFIED WITH PT MEDICATION IS GIVEN AT 1041 AM
[2022-02-27 16:00] VITALS: BP 133/88
[2022-02-27] MEDS: ATORVASTATIN 10 MG TABLET PO SCH (18:56)
--- NOTE | 2022-02-27 19:20 | NUR ---
MS/RN OPENING NOTE RECEIVED PATIENT RESTING IN BED. FAMILY AT BEDSIDE. PATIENT IS AWAKE, ALERT AND ORIENTED X 4. ABLE TO MAKE NEEDS KNOWN. ENDORSES MILD PAIN AT THIS TIME - WILL CONTINUE PAIN MANAGEMENT MEDICATIONS. CONTINUES ON ROOM AIR WITH NO S/SX OF RESPIRATORY DISTRESS NOTED. IV ACCESS TO RIGHT UPPER ARM PICC LINE INTACT AND PATENT. CONTINUES ON IV ABX. HENDERSON CATHETER IN PLACE DRAINING CLEAR, YELLOW URINE. WOUND VAC TO RIGHT KNEE WITH SOME DRAINGE NOTED IN CANISTER. CALL LIGHT WITHIN REACH. ASPIRATION, FALL AND SAFETY PRECAUTIONS MAINTAINED. ALL NEEDS ATTENDED TO AT THIS TIME.
--- NOTE | 2022-02-27 19:45 | NUR ---
TELE/RN NOTE PATIENT WITH C/O RIGHT LEG PAIN 02/20 - ADMINISTERED PRN DILAUDID PER MD ORDER.
--- NOTE | 2022-02-27 19:50 | NUR ---
MS RN CLOSING NOTES: PATIENT IN BED AWAKE,A/O X4, ABLE TO MAKE NEEDS KNOWN. PT ON ROOM AIR TOLERATING WELL. NO SOB OR ACUTE DISTRESS NOTED. IV ACCESS AT THE RIGHT UPPER ARM PICC LINE SALINE LOCKED, PATENT AND INTACT. WOUND VAC DRAINING SERO-SANGUINOUS FLUID, HENDERSON DRAINING CLEAR, YELLOW URINE. SAFETY MEASURES IN PLACE, CALL LIGHT WITHIN REACH. BED ON LOWEST LOCKED POSITION, SIDE RAILS UP X2, ENDORSED TO PM SHIFT.
[2022-02-27 20:13] VITALS: BP 140/73
[2022-02-27] MEDS: DRONABINOL (2.5 MG) 2.5 MG CAPSULE PO SCH (21:55)
--- NOTE | 2022-02-27 22:01 | NUR ---
MS/RN NOTE PATIENT WITH C/O RIGHT KNEE PAIN 03/23 - ADMINISTERED PRN OXYCODONE PER MD ORDERS.
[2022-02-28] MEDS: ZOSYN IVPB 3.375 G in IV D5W 50ml IV SCH ×5 (00:50→23:31)
[2022-02-28] MEDS: oxyCODONE IR immediate release 5 MG PO PRN ×7 (00:59→21:49)
--- NOTE | 2022-02-28 01:00 | NUR ---
MS/RN NOTE C/O RIGHT KNEE PAIN 03/23 - ADMINISTERED PRN OXYCODONE PER MD ORDER.
[2022-02-28] MEDS: HYDROMORPHONE 1 MG/1 ML DISP.SYRIN IV PRN ×5 (02:02→22:56)
--- NOTE | 2022-02-28 02:05 | NUR ---
MS/RN NOTE PATIENT WITH C/O PAIN TO RIGHT KNEE. ADMINISTERED PRN DILAUDID PER MD ORDERS.
--- NOTE | 2022-02-28 04:05 | NUR ---
MS/RN NOTE PATIENT WITH C/O RIGHT KNEE PAIN 03/23. ADMINISTERED PRN OXYCODONE PER MD ORDERS.
[2022-02-28] MEDS: METHADONE HCL 10 MG TABLET PO SCH ×2 (05:36→17:34)
--- NOTE | 2022-02-28 06:20 | NUR ---
MS/RN CLOSING NOTE PATIENT CURRENTLY RESTING IN BED. AWAKE, ALERT AND ORIENTED X 4. ABLE TO MAKE NEEDS KNOWN. DENIES PAIN AT THIS TIME. CONTINUES ON ROOM AIR WITH NO S/SX OF RESPIRATORY DISTRESS NOTED. IV ACCESS TO RIGHT UPPER ARM PICC LINE INTACT AND PATENT. CONTINUES ON IV ABX. HENDERSON CATHETER IN PLACE DRAINING CLEAR, YELLOW URINE TO GRAVITY . WOUND VAC TO RIGHT KNEE WITH SOME DRAINAGE NOTED IN CANISTER. CALL LIGHT WITHIN REACH. ASPIRATION, FALL AND SAFETY PRECAUTIONS MAINTAINED. WILL ENDORSE PLAN OF CARE TO ONCOMING SHIFT RN.
--- NOTE | 2022-02-28 07:15 | NUR ---
MS/RN NOTE C/O PAIN TO RIGHT KNEE 03/23 DURING SHIFT REPORT. ADMINISTERED PRN OXYCODONE PER MD ORDERS PRIOR TO HANDOFF.
[2022-02-28 07:35] LABS: CALCIUM, SERUM 8.6 mg/dL (8.5-10.1); CREATININE 1.2 mg/dL (0.6-1.3); POTASSIUM 3.6 mmol/L (3.5-5.1)
--- NOTE | 2022-02-28 07:48 | NUR ---
RN open note RECEIVED PATIENT IN BED AWAKE,A/O X4, PT ON ROOM AIR TOLERATING WELL. NO SOB OR ACUTE DISTRESS NOTED. IV ACCESS AT THE RIGHT UPPER ARM PICC LINE SALINE LOCKED, PATENT AND INTACT. WOUND VAC DRAINING SERO-SANGUINOUS FLUID, HENDERSON DRAINING CLEAR, YELLOW URINE. SAFETY MEASURES IN PLACE, CALL LIGHT WITHIN REACH. BED ON LOWEST LOCKED POSITION, SIDE RAILS UP X2. WILL CONTINUE TO MONITOR.
--- NOTE | 2022-02-28 07:55 | NUR ---
WOUND CARE FOLLOW UP (LATE ENTRY); PT WAS SEEN ON 02/25/22 FOR WOUND VAC DRESSING CHANGE. RT KNEE WOUND MEASURED 10CM X 8CM X 2.3CM WITH RED GRANULATION TISSUE TO MAJORITY OF WOUND. SMALL AMOUNT OF SEROSANGUINOUS DRAINAGE WAS NOTED, NO ODOR. SKIN PREP AND VAC DRAPE WAS APPLIED TO PERIWOUND AREAS, 2 PIECES OF GRANUFOAM USED FOR WOUND. VAC AT 125mmHg CONTINUOUS SETTING. PT TOLERATED WELL.
[2022-02-28 08:00] VITALS: BP 177/88
[2022-02-28] MEDS: FAMOTIDINE (20 MG) 20 MG TABLET PO SCH (08:41)
[2022-02-28] MEDS: CLONIDINE HCL 0.1 MG TABLET PO SCH ×3 (08:42→17:34)
[2022-02-28] MEDS: GABAPENTIN 300 MG CAPSULE PO SCH ×3 (08:42→17:33)
[2022-02-28] MEDS: hydrALAZINE HCL 50 MG TABLET PO SCH ×3 (08:43→17:34)
[2022-02-28] MEDS: METOPROLOL SUCCINATE 50 MG TAB.SR.24H PO SCH (08:44)
[2022-02-28] MEDS: ASPIRIN 325 MG TABLET PO SCH (08:44)
[2022-02-28] MEDS: DOCUSATE SODIUM 100 MG CAPSULE PO SCH (08:44)
[2022-02-28] MEDS: CLOTRIMAZOLE 1% 15 GM TUBE TP SCH ×2 (08:54→17:20)
[2022-02-28] MEDS: DAKINS QUARTER STRENGTH (0.125%) 480 ML BOTTLE TOP SCH (08:54)
--- NOTE | 2022-02-28 08:57 | NUR ---
WOUND CARE: PT SEEN FOR WOUND VAC DRESSING CHANGE TO RT KNEE. WOUND MEASURES 9.5CM X 8CM X 2.3CM AND HAS MOSTLY RED GRANULATION TISSUE WITH SCANT AMOUNT OF YELLOW ADHERENT SLOUGH. THERE IS SOME HYPERGRANULAR TISSUE IN CENTRAL AREA OF WOUND. DISCUSSED WITH PLASTIC SURGERY P.A. PLAN TO HOLD VAC FOR NOW TIL SEEN BY SURGICAL TEAM. WOUND CLEANSED WITH DAKINS AND GENTLY PACKED WITH DAKINS MOISTENED KERLIX, COVERED WITH ABD PAD AND SECURED WITH TEGADERM. PT TOLERATED WELL. PT ALSO NOTED TO HAVE SOME FUNGAL RASH TO GLUTEAL CREASE WITH MOISTURE ASSOCIATED SKIN DAMAGE AND FUNGAL RASH TO ABDOMINAL/GROIN FOLDS. RECOMMENDATIONS MADE FOR SKIN CARE AND PROTECTION. DISCUSSED WITH NURSING STAFF. PT IS ON CONG ISOFLEX LOW AIRLOSS BED. IN AGREEMENT WITH PLAN OF CARE. Addendum: 02/28/22 at 0906 by CHASE FRANZ WNDNU ADDITIONAL: VAC CANISTER WAS DISCARDED THIS AM WITH 375cc PINK DRAINAGE.
[2022-02-28] MEDS: Z GUARD REMEDY 4 OZ OINT TP SCH (08:58)
[2022-02-28 16:00] VITALS: BP 149/72
[2022-02-28] MEDS: ATORVASTATIN 10 MG TABLET PO SCH (17:33)
--- NOTE | 2022-02-28 18:46 | NUR ---
RN closing note PATIENT IN BED AWAKE,A/O X4, ABLE TO MAKE NEEDS KNOWN. PT ON ROOM AIR TOLERATING WELL. NO SOB OR ACUTE DISTRESS NOTED. IV ACCESS AT THE RIGHT UPPER ARM PICC LINE SALINE LOCKED, PATENT AND INTACT. WOUND VAC DISCONTINUED FOR TODAY , TIRE INSTALLER APPLIED DRESSING , WILL RESTART WOUND VAC IN AM , HENDERSON DRAINING CLEAR, YELLOW URINE. SAFETY MEASURES IN PLACE, CALL LIGHT WITHIN REACH. BED ON LOWEST LOCKED POSITION, SIDE RAILS UP X2, ENDORSED TO PM SHIFT.
--- NOTE | 2022-02-28 19:30 | NUR ---
MS RN OPENING NOTE RECEIVED PATIENT IN BED. A/OX4. AT BEDSIDE AT THIS TIME. NO S/S OF APPARENT DISTRESS IN ROOM AIR. NO C/O PAIN AT THIS TIME. PICC LINE NOTED. HENDERSON CATH DRAINING CLEAR YELLOW URINE. ORIENTED WITH THE USE OF CALL LIGHT. R. KNEE DRESSING CLEAN, DRY AND INTACT. SAFETY IN PLACE. WILL CONTINUE WITH PLAN OF CARE FOR PATIENT.
[2022-02-28 20:00] VITALS: BP 114/79
[2022-02-28] MEDS: DRONABINOL (2.5 MG) 2.5 MG CAPSULE PO SCH (21:50)
[2022-03-01] MEDS: oxyCODONE IR immediate release 5 MG PO PRN ×7 (00:56→23:54)
[2022-03-01] MEDS: HYDROMORPHONE 1 MG/1 ML DISP.SYRIN IV PRN ×5 (05:52→22:41)
[2022-03-01] MEDS: ZOSYN IVPB 3.375 G in IV D5W 50ml IV SCH ×4 (05:54→23:58)
[2022-03-01] MEDS: METHADONE HCL 10 MG TABLET PO SCH ×2 (07:00→17:35)
--- NOTE | 2022-03-01 07:23 | NUR ---
MS RN NOTE REPORT GIVEN TO LINDA VILLASEÑOR FOR CONTINUITY OF CARE
--- NOTE | 2022-03-01 07:30 | NUR ---
MS RN OPENING NOTES RECEIVED PATIENT IN BED. A/OX4. PATIENT IS ON ROOM AIR, NO S/S OF APPARENT DISTRESS AND NO SOB. NO C/O PAIN AT THIS TIME. R UA PICC LINE, PATENT AND INTACT. HENDERSON CATH DRAINING CLEAR YELLOW URINE. RIGHT KNEE DRESSING CLEAN, DRY AND INTACT. SAFETY IN PLACED, AND PATIENT IS ORIENTED WITH THE USE OF CALL LIGHT. WILL CONTINUE TO MONITOR FOR MARC.
[2022-03-01 08:00] VITALS: BP 141/78
[2022-03-01] MEDS: CLOTRIMAZOLE 1% 15 GM TUBE TP SCH ×2 (08:22→17:19)
[2022-03-01] MEDS: Z GUARD REMEDY 4 OZ OINT TP SCH (08:22)
[2022-03-01] MEDS: DAKINS QUARTER STRENGTH (0.125%) 480 ML BOTTLE TOP SCH (08:27)
[2022-03-01] MEDS: DOCUSATE SODIUM 100 MG CAPSULE PO SCH ×2 (08:37→09:00)
[2022-03-01] MEDS: GABAPENTIN 300 MG CAPSULE PO SCH ×3 (08:37→17:22)
[2022-03-01] MEDS: METOPROLOL SUCCINATE 50 MG TAB.SR.24H PO SCH (08:37)
[2022-03-01] MEDS: FAMOTIDINE (20 MG) 20 MG TABLET PO SCH (08:38)
[2022-03-01] MEDS: ASPIRIN 325 MG TABLET PO SCH (08:38)
[2022-03-01] MEDS: hydrALAZINE HCL 50 MG TABLET PO SCH ×3 (08:38→17:22)
[2022-03-01] MEDS: CLONIDINE HCL 0.1 MG TABLET PO SCH ×3 (08:38→17:22)
--- NOTE | 2022-03-01 08:53 | NUR ---
WOUND CARE: WOUND VAC PLACED ON RT KNEE USING SKIN PREP AND VAC DRAPE TO PERIWOUND AREAS, 2 PIECES OF GRANUFOAM TO WOUND. VAC AT 125mmHg CONTINUOUS SETTING. PT TOLERATED WELL. NEXT DRESSING CHANGE PLANNED FOR MONDAY.
[2022-03-01 16:00] VITALS: BP 127/76
[2022-03-01] MEDS ORDERED: HYDROMORPHONE HCL 2 MG TABLET PO PRN (16:30)
[2022-03-01] MEDS: ATORVASTATIN 10 MG TABLET PO SCH (18:34)
--- NOTE | 2022-03-01 19:56 | NUR ---
MS RN CLOSING NOTES PATIENT IN BED, A/OX4. PATIENT IS ON ROOM AIR, NO S/S OF APPARENT DISTRESS AND NO SOB. PATIENT IS IN CONSTANT PAIN, AND PAIN MANAGEMENT IS WELL MAINTAINED. R UA PICC LINE, PATENT AND INTACT. HENDERSON CATH DRAINING CLEAR YELLOW URINE. RIGHT KNEE DRESSING CLEAN, DRY AND INTACT. SAFETY IN PLACED, AND PATIENT IS ORIENTED WITH THE USE OF CALL LIGHT. WILL ENDORSE TO INCOMING MONITOR FOR MARC.
[2022-03-01 20:00] VITALS: BP 125/70
[2022-03-01] MEDS: DRONABINOL (2.5 MG) 2.5 MG CAPSULE PO SCH (21:41)
[2022-03-02] MEDS: METHADONE HCL 10 MG TABLET PO SCH ×2 (06:00→17:27)
[2022-03-02] MEDS: ZOSYN IVPB 3.375 G in IV D5W 50ml IV SCH ×4 (06:09→23:14)
[2022-03-02] MEDS: oxyCODONE IR immediate release 5 MG PO PRN ×6 (06:09→23:21)
--- NOTE | 2022-03-02 07:00 | NUR ---
SOPHIA/TELE/RN PATIENT IS AWAKE, ALERT, ORIENTED, COMFORTABLE, NO DISTRESS NOTED, MORNING CARE RENDERED, ALL NEEDS ATTENDED AT THIS TIME, WILL CONTINUE TO MONITOR.
[2022-03-02] MEDS: HYDROMORPHONE 1 MG/1 ML DISP.SYRIN IV PRN ×3 (07:14→21:25)
--- NOTE | 2022-03-02 07:26 | NUR ---
MS RN OPENING NOTE RECEIVED PT IN BED ASLEEP, EASILY AROUSED. A/O X4, ABLE TO MAKE NEEDS KNOWN. ON RA, TOLERATING WELL. BREATHING EVEN AND UNLABORED. HENDERSON CATH INTACT AND DRAINING WELL. IV ACCESS IN AMOR PICCLINE, INTACT AND PATENT. WOUND VAC TO RIGHT KNEE IN PLACE AND DRAINING WELL. SAFETY MEASURES IN PLACE: BED IN LOWEST AND LOCKED POSITION, SIDE RAILS UP X2, AND CALL LIGHT WITHIN REACH. WILL CONTINUE TO MONITOR PT.
[2022-03-02 08:00] VITALS: BP 141/76
[2022-03-02] MEDS: DOCUSATE SODIUM 100 MG CAPSULE PO SCH (09:00)
[2022-03-02] MEDS: GABAPENTIN 300 MG CAPSULE PO SCH ×3 (09:14→17:26)
[2022-03-02] MEDS: FAMOTIDINE (20 MG) 20 MG TABLET PO SCH (09:14)
[2022-03-02] MEDS: ASPIRIN 325 MG TABLET PO SCH (09:14)
--- NOTE | 2022-03-02 09:14 | NUR ---
WOUND CARE: WOUND VAC FUNCTIONING WELL TO RT KNEE WOUND AT 125mmHg CONTINUOUS SETTING WITH APPROXIMATELY 100cc PINK DRAINAGE IN CANISTER.
[2022-03-02] MEDS: CLONIDINE HCL 0.1 MG TABLET PO SCH ×3 (09:15→17:00)
[2022-03-02] MEDS: hydrALAZINE HCL 50 MG TABLET PO SCH ×3 (09:15→17:00)
[2022-03-02] MEDS: METOPROLOL SUCCINATE 50 MG TAB.SR.24H PO SCH (09:16)
[2022-03-02] MEDS: DAKINS QUARTER STRENGTH (0.125%) 480 ML BOTTLE TOP SCH (09:24)
[2022-03-02] MEDS: CLOTRIMAZOLE 1% 15 GM TUBE TP SCH ×2 (09:25→17:25)
[2022-03-02] MEDS: Z GUARD REMEDY 4 OZ OINT TP SCH (09:25)
--- NOTE | 2022-03-02 10:43 | NUR ---
RN NOTE PT C/O RIGHT KNEE PAIN WITH PAIN SCALE LEVEL OF 8/10. OXYCODONE IR 40MG ADMINISTERED ORDERED PRN. WILL MONITOR AND REASSESSED PT.
--- NOTE | 2022-03-02 14:24 | NUR ---
RN NOTE PT C/O RIGHT KNEE PAIN WITH PAIN SCALE LEVEL OF 8/10. OXYCODONE IR 40MG ADMINISTERED ORDERED PRN. WILL MONITOR AND REASSESSED PT.
--- NOTE | 2022-03-02 15:46 | NUR ---
RN NOTE PT C/O RIGHT KNEE PAIN WITH PAIN SCALE LEVEL OF 8/10. DILAUDID 1MG IVP ADMINISTERED ORDERED PRN. WILL MONITOR AND REASSESSED PT.
[2022-03-02 16:09] VITALS: BP 119/63
[2022-03-02] MEDS: ATORVASTATIN 10 MG TABLET PO SCH (17:25)
--- NOTE | 2022-03-02 17:30 | NUR ---
RN NOTE PT C/O RIGHT KNEE PAIN WITH PAIN SCALE LEVEL OF 8/10. OXYCODONE IR 40MG ADMINISTERED ORDERED PRN AT 1728. WILL MONITOR AND REASSESSED PT.
--- NOTE | 2022-03-02 18:32 | NUR ---
MS RN OPENING NOTE PT IN BED AWAKE IN BED WATCHING TELEVISION. A/O X4, ABLE TO MAKE NEEDS KNOWN. ON RA, TOLERATING WELL. BREATHING EVEN AND UNLABORED. HENDERSON CATH INTACT AND DRAINING WELL. IV ACCESS IN AMOR PICCLINE, INTACT AND PATENT. WOUND VAC TO RIGHT KNEE IN PLACE AND DRAINING WELL. ALL NEEDS ATTENDED. KEPT CLEAN AND COMFORTABLE. SAFETY MEASURES IN PLACE: BED IN LOWEST AND LOCKED POSITION, SIDE RAILS UP X2, AND CALL LIGHT WITHIN REACH. WILL ENDORSE TO BASEBALL GLOVE STUFFER NURSE FOR MARC. Addendum: 03/02/22 at 1833 by ELENA FARZIER RN DELETE ENTRY
--- NOTE | 2022-03-02 18:34 | NUR ---
MS RN CLOSING NOTE PT IN BED AWAKE IN BED WATCHING TELEVISION. A/O X4, ABLE TO MAKE NEEDS KNOWN. ON RA, TOLERATING WELL. BREATHING EVEN AND UNLABORED. HENDERSON CATH INTACT AND DRAINING WELL. IV ACCESS IN AMOR PICCLINE, INTACT AND PATENT. WOUND VAC TO RIGHT KNEE IN PLACE AND DRAINING WELL. ALL NEEDS ATTENDED. KEPT CLEAN AND COMFORTABLE. SAFETY MEASURES IN PLACE: BED IN LOWEST AND LOCKED POSITION, SIDE RAILS UP X2, AND CALL LIGHT WITHIN REACH. WILL ENDORSE TO ACCOUNT DEVELOPMENT MANAGER NURSE FOR MARC.
[2022-03-02 20:08] VITALS: BP 123/67
[2022-03-02] MEDS: DRONABINOL (2.5 MG) 2.5 MG CAPSULE PO SCH (21:24)
[2022-03-03] MEDS: oxyCODONE IR immediate release 5 MG PO PRN ×7 (03:05→22:31)
[2022-03-03] MEDS: HYDROMORPHONE 1 MG/1 ML DISP.SYRIN IV PRN ×4 (04:11→23:36)
[2022-03-03] MEDS: ZOSYN IVPB 3.375 G in IV D5W 50ml IV SCH ×4 (05:28→23:45)
--- NOTE | 2022-03-03 05:47 | NUR ---
END OF SHIFT REPORT Patient is A/O x4, tolerating room air. Right knee wound vac in place, output minimal. Right knee pain managed with Dilaudid IV and Oxy IR. Patient denies N/V, good appetite. Had BM during the shift. Gee cath intact, output clear yellow. AMOR PICC line patent. Plan for abx total 6 weeks until 03/07/22. Pending dc/placement. Will endorse to oncoming RN.
[2022-03-03] MEDS: METHADONE HCL 10 MG TABLET PO SCH ×2 (06:00→18:00)
--- NOTE | 2022-03-03 06:18 | NUR ---
REFUSAL PAIN MEDICATION Patient refused Methadone scheduled at 0600, education given, strongly refused Methadone.
--- NOTE | 2022-03-03 07:05 | NUR ---
MS RN OPENING NOTES RECEIVED PATIENT AWAKE IN BED WATCHING TV. ON ROOM AIR, NO S/S OF RESPIRATORY DISTRESS. A/O x4, ABLE TO MAKE NEEDS KNOWN. PATIENT HAS HENDERSON CATHETER, DRAINING WELL, CLEAR YELLOW URINE DRAINING. WOUND VAC OF R KNEE IN PLACE DRAINING WELL. NO S/S OR C/O OF DISCOMFORT OR PAIN NOTED. IV ACCESS AMOR PICC LINE, INTACT AND PATENT. SKIN ISSUES IS R KNEE WOUND VAC. SAFETY MEASURES IN PLACE: BED LOCKED AND IN LOWEST POSITION, SIDE RAILS UP x2, CALL LIGHT WITHIN REACH. WILL CONTINUE TO MONITOR.
--- NOTE | 2022-03-03 08:17 | NUR ---
RN NOTES PATIENT WAS COMPLAINING OF PAIN 8/ OF R KNEE. PRN DILAUDID GIVEN @0815. WILL CONTINUE TO MONITOR.
[2022-03-03 08:21] VITALS: BP 157/87
[2022-03-03] MEDS: DOCUSATE SODIUM 100 MG CAPSULE PO SCH (09:00)
[2022-03-03] MEDS: GABAPENTIN 300 MG CAPSULE PO SCH ×3 (09:42→17:18)
[2022-03-03] MEDS: CLONIDINE HCL 0.1 MG TABLET PO SCH ×3 (09:43→17:00)
[2022-03-03] MEDS: FAMOTIDINE (20 MG) 20 MG TABLET PO SCH (09:43)
[2022-03-03] MEDS: ASPIRIN 325 MG TABLET PO SCH (09:43)
[2022-03-03] MEDS: METOPROLOL SUCCINATE 50 MG TAB.SR.24H PO SCH (09:44)
[2022-03-03] MEDS: hydrALAZINE HCL 50 MG TABLET PO SCH ×3 (09:44→17:00)
[2022-03-03] MEDS: DAKINS QUARTER STRENGTH (0.125%) 480 ML BOTTLE TOP SCH (09:45)
[2022-03-03] MEDS: Z GUARD REMEDY 4 OZ OINT TP SCH (09:46)
[2022-03-03] MEDS: CLOTRIMAZOLE 1% 15 GM TUBE TP SCH ×2 (09:46→17:22)
--- NOTE | 2022-03-03 09:51 | NUR ---
LINDA NOTES PATIENT WAS COMPLAINING OF PAIN 01/21 OF R KNEE. PRN DILAUDID GIVEN @0946. WILL CONTINUE TO MONITOR. Addendum: 03/03/22 at 1458 by NOLA ISIDRO RN ADDENDUM: TYPING ERROR PRN DILAUDID NOT GIVEN, PRN OXYCODONE GIVEN
--- NOTE | 2022-03-03 12:52 | NUR ---
RN NOTES PATIENT WAS COMPLAINING OF PAIN 6/10 OF R KNEE. PRN OXY GIVEN @1250. WILL CONTINUE TO MONITOR.
--- NOTE | 2022-03-03 14:05 | NUR ---
RN NOTES PATIENT WAS COMPLAINING OF PAIN 8/ OF R KNEE. PRN DILAUDID GIVEN @1403. WILL CONTINUE TO MONITOR.
--- NOTE | 2022-03-03 15:54 | NUR ---
RN NOTES PATIENT WAS COMPLAINING OF PAIN 7/ OF R KNEE. PRN OXY GIVEN @1551. WILL CONTINUE TO MONITOR.
[2022-03-03 16:10] VITALS: BP 127/65
--- NOTE | 2022-03-03 18:31 | NUR ---
MS RN CLOSING NOTES PATIENT AWAKE IN BED ON LAPTOP, STABLE ROOM AIR, NO S/S OF RESPIRATORY DISTRESS. A/O x4, ABLE TO MAKE NEEDS KNOWN. PATIENT HAS HENDERSON CATHETER, DRAINING WELL, CLEAR YELLOW URINE DRAINING OUTPUT: 1000 ML. WOUND VAC OF R KNEE IN PLACE DRAINING WELL, OUTPUT: 50 ML. NO S/S OR C/O OF DISCOMFORT OR PAIN NOTED. IV ACCESS AMOR PICC LINE, INTACT AND PATENT. SKIN ISSUES IS R KNEE WOUND VAC. ALL PRESCRIBED MEDICATION ADMINISTERED. SAFETY MEASURES MAINTAINED: BED LOCKED AND IN LOWEST POSITION, SIDE RAILS UP x2, CALL LIGHT WITHIN REACH. WILL ENDORSE TO NEXT SHIFT ANY MARC.
[2022-03-03] MEDS: ATORVASTATIN 10 MG TABLET PO SCH (18:45)
--- NOTE | 2022-03-03 19:05 | NUR ---
MS RN OPENING NOTES: RECEIVED PATIENT IN BED, AWAKE, A/O X4. NO S/S OF DISTRESS NOTED. NO COMPLAIN OF PAIN. CALL LIGHT WITHIN REACH. BED IN LOWEST AND LOCKED POSITION. HOB ELEVATED. WITH WOUND VAC ON THE RIGHT EXTREMITY WITH SEROSANGUINOUS OUTPUT. WITH HENDERSON CATHETER INTACT, DRAINING CLEAR YELLOW URINE.
[2022-03-03 20:00] VITALS: BP 127/70
--- NOTE | 2022-03-03 20:00 | NUR ---
PATIENT ASLEEP AT THIS TIME
--- NOTE | 2022-03-03 22:00 | NUR ---
PATIENT IS ASLEEP AT THIS TIME.
[2022-03-03] MEDS: DRONABINOL (2.5 MG) 2.5 MG CAPSULE PO SCH (22:30)
--- NOTE | 2022-03-04 00:12 | NUR ---
patient asleep at this time.
[2022-03-04] MEDS: oxyCODONE IR immediate release 5 MG PO PRN ×7 (01:51→21:48)
--- NOTE | 2022-03-04 03:37 | NUR ---
patient asleep at this time
[2022-03-04] MEDS: METHADONE HCL 10 MG TABLET PO SCH ×2 (05:32→18:00)
[2022-03-04] MEDS: ZOSYN IVPB 3.375 G in IV D5W 50ml IV SCH ×3 (05:32→17:36)
[2022-03-04] MEDS: HYDROMORPHONE 1 MG/1 ML DISP.SYRIN IV PRN ×4 (06:35→22:51)
--- NOTE | 2022-03-04 07:30 | NUR ---
RN MS NOTES PT IN BED, AWAKE, ALERT AND ORIENTED, NO COMPLAINT OF PAIN AT THIS TIME, RESPIRATIONS NORMAL, CALL LIGHT WITHIN REACH, NO OTHER NEEDS AT THIS TIME.
[2022-03-04 08:16] VITALS: BP 150/88
[2022-03-04] MEDS: GABAPENTIN 300 MG CAPSULE PO SCH ×3 (08:31→17:47)
[2022-03-04] MEDS: ASPIRIN 325 MG TABLET PO SCH (08:31)
[2022-03-04] MEDS: CLONIDINE HCL 0.1 MG TABLET PO SCH ×3 (08:31→17:00)
[2022-03-04] MEDS: DOCUSATE SODIUM 100 MG CAPSULE PO SCH ×2 (08:31→09:00)
[2022-03-04] MEDS: METOPROLOL SUCCINATE 50 MG TAB.SR.24H PO SCH (08:32)
[2022-03-04] MEDS: hydrALAZINE HCL 50 MG TABLET PO SCH ×3 (08:32→17:00)
[2022-03-04] MEDS: FAMOTIDINE (20 MG) 20 MG TABLET PO SCH (08:33)
--- NOTE | 2022-03-04 08:47 | NUR ---
WOUND CARE FOLLOW UP: PT SEEN FOR WOUND VAC DRESSING CHANGE TO RT KNEE. WOUND MEASURES 9CM X 8CM X 2CM AND IS MOSTLY RED GRANULATION TISSUE WITH SMALL AREA OF YELLOW SLOUGH AT MEDIAL EDGE OF WOUND. SKIN PREP AND VAC DRAPE WAS APPLIED TO PERIWOUND AREAS, 2 PIECES OF GRANUFOAM USED. VAC AT 125mmHg CONTINUOUS SETTING. PT TOLERATED WELL. APPROXIMATELY 200cc NOTED IN CANISTER (PINK DRAINAGE). NEXT DRESSING CHANGE PLANNED FOR MONDAY.
[2022-03-04] MEDS: DAKINS QUARTER STRENGTH (0.125%) 480 ML BOTTLE TOP SCH (09:23)
[2022-03-04] MEDS: CLOTRIMAZOLE 1% 15 GM TUBE TP SCH ×2 (09:23→17:54)
[2022-03-04] MEDS: Z GUARD REMEDY 4 OZ OINT TP SCH (09:23)
[2022-03-04 16:41] VITALS: BP 135/63
[2022-03-04] MEDS: ATORVASTATIN 10 MG TABLET PO SCH (17:47)
--- NOTE | 2022-03-04 18:04 | NUR ---
RN TASH NOTES PT IN BED, AWAKE, ALERT AND ORIENTED, PAIN MEDS GIVEN ORDERED, EATING DINNER RIGHT NOW, DUE MEDS GIVEN ORDERED, CALL LIGHT WITHIN REACH, ALL NEEDS ATTENDED.
--- NOTE | 2022-03-04 19:26 | NUR ---
MS RN OPENING NOTES: RECEIVED PATIENT SLEEP IN BED AROUSABLE TO VERBAL STIMULI, ACCOMPANIED BY FAMILY, BED IN LOW POSITION CALL LIGHTS WITHIN REACH, NO COMPLAIN OF PAIN AND DISCOMFORT AT THIS TIME, ON ROOM AIR SATURATING WELL, ON PAIN MANAGEMENT WITH IV LINE AT AMOR PICC LINE, WITH WITH LEFT KNEE WOUND VAC, BASELINE AT 240CC, PATIENT KEPT CLEAN ANDD RY ALL NEEDS MET WILL CONTINUE TO MONITOR.
[2022-03-04 19:52] VITALS: BP 123/61
[2022-03-04] MEDS: DRONABINOL (2.5 MG) 2.5 MG CAPSULE PO SCH (21:47)
[2022-03-05] MEDS: ZOSYN IVPB 3.375 G in IV D5W 50ml IV SCH ×4 (00:24→18:37)
[2022-03-05] MEDS: HYDROMORPHONE 1 MG/1 ML DISP.SYRIN IV PRN ×6 (00:47→20:33)
[2022-03-05] MEDS: oxyCODONE IR immediate release 5 MG PO PRN ×7 (00:54→21:34)
[2022-03-05] MEDS: METHADONE HCL 10 MG TABLET PO SCH ×2 (06:02→18:00)
--- NOTE | 2022-03-05 06:35 | NUR ---
MS RN CLOSING NOTES: PATIENT AWAKE IN BED, BED IN LOW POSITION CALL LIGHTS WITHIN REACH, NO COMPLAIN OF PAIN AND DISCOMFORT AT THIS TIME ON PAIN MANAGEMENT, PATIENT ON ROOM AIR SATURATING WELL, WITH IV LINE AT AMOR PICC LINE SL. WOUND VACC AT 30CC OUTPUT, PATIENT KEPT CLEAN AND DRY ALL NEEDS MET ENDORSE TO INCOMING SHIFT.
--- NOTE | 2022-03-05 07:35 | NUR ---
ms rn received on bed, awake,alert,oriented x4,not in any form of distress, respirations even and unlabored,no sob noted, lungs are clear,abdomen soft,positive bowel sounds,denies pain at this time, wound vac intact at right leg w/ sanguinous output,all needs attended.
[2022-03-05 08:00] VITALS: BP 142/69
[2022-03-05] MEDS: FAMOTIDINE (20 MG) 20 MG TABLET PO SCH (08:32)
[2022-03-05] MEDS: ASPIRIN 325 MG TABLET PO SCH (08:32)
[2022-03-05] MEDS: GABAPENTIN 300 MG CAPSULE PO SCH ×3 (08:32→16:39)
[2022-03-05] MEDS: METOPROLOL SUCCINATE 50 MG TAB.SR.24H PO SCH (08:33)
[2022-03-05] MEDS: DOCUSATE SODIUM 100 MG CAPSULE PO SCH ×2 (08:34→08:44)
[2022-03-05] MEDS: hydrALAZINE HCL 50 MG TABLET PO SCH ×3 (08:34→16:39)
[2022-03-05] MEDS: CLONIDINE HCL 0.1 MG TABLET PO SCH ×4 (08:35→16:39)
--- NOTE | 2022-03-05 09:00 | NUR ---
ms vikki breakfast served,due meds givshaw,tolerated well.
[2022-03-05 12:00] VITALS: BP 161/79
[2022-03-05] MEDS: CLOTRIMAZOLE 1% 15 GM TUBE TP SCH ×2 (15:23→16:45)
[2022-03-05] MEDS: Z GUARD REMEDY 4 OZ OINT TP SCH (15:25)
[2022-03-05 16:00] VITALS: BP 165/75
[2022-03-05 16:04] VITALS: BP 165/75
[2022-03-05] MEDS: DAKINS QUARTER STRENGTH (0.125%) 480 ML BOTTLE TOP SCH (16:33)
[2022-03-05] MEDS: ATORVASTATIN 10 MG TABLET PO SCH (18:18)
--- NOTE | 2022-03-05 19:15 | NUR ---
MS RN OPENING NOTES: RECEIVED PATIENT IN BED, AWAKE, A/O X4. NO S/S OF DISTRESS NOTED. NO COMPLAIN OF PAIN. CALL LIGHT WITHIN REACH. BED IN LOWEST AND LOCKED POSITION. HOB ELEVATED. WITH WOUND VAC INTACT DRAINING SEROSANGUINOUS OUTPUT. WITH HENDERSON CATHETER INTACT DRAINING YELLOW URINE OUTPUT. PATIENT IS RESTING COMFORTABLE AT THIS TIME, LOOKING AT HER PHONE.
[2022-03-05 20:00] VITALS: BP 124/67
--- NOTE | 2022-03-05 21:23 | NUR ---
patient asleep at this time.
[2022-03-05] MEDS: DRONABINOL (2.5 MG) 2.5 MG CAPSULE PO SCH (21:35)
--- NOTE | 2022-03-05 22:36 | NUR ---
patient asleep at this time.
--- NOTE | 2022-03-05 23:30 | NUR ---
patient asleep at this time with breathing evenly.
[2022-03-06] MEDS: oxyCODONE IR immediate release 5 MG PO PRN ×9 (00:39→22:25)
[2022-03-06] MEDS: ZOSYN IVPB 3.375 G in IV D5W 50ml IV SCH ×4 (00:40→17:14)
[2022-03-06] MEDS: HYDROMORPHONE 1 MG/1 ML DISP.SYRIN IV PRN ×5 (01:43→19:55)
--- NOTE | 2022-03-06 02:28 | NUR ---
patient asleep at this time with breathing evenly.
--- NOTE | 2022-03-06 06:11 | NUR ---
PICC LINE DRESSING CHANGED.
[2022-03-06] MEDS: METHADONE HCL 10 MG TABLET PO SCH ×2 (06:54→17:20)
--- NOTE | 2022-03-06 07:24 | NUR ---
MS RN OPENING NOTES RECEIVED PATIENT AWAKE IN BED IN NO ACUTE SIGNS OF DISTRESS. HOB ELEVATED. A/O x4, ABLE TO MAKE NEEDS KNOWN, NO C/O PAIN AT THIS TIME. ON ROOM AIR, NO S/S OF RESPIRATORY DISTRESS NOTED. PATIENT HAS HENDERSON CATHETER, DRAINING CLEAR YELLOW URINE VIA GRAVITY. WOUND VAC OF R KNEE IN PLACE AT 125MMHG PRESSURE CONTINUOUS DRAINING LIGHT BROWNISH TO YELLOWISH DRAINAGE. AMOR PICC LINE, INTACT, PATENT WITH DRESSING C/D/I. SAFETY MEASURES IN PLACE: BED LOCKED AND IN LOWEST POSITION, SIDE RAILS UP x2, CALL LIGHT WITHIN REACH. WILL CONTINUE TO MONITOR.
[2022-03-06 08:00] VITALS: BP 154/88
[2022-03-06] MEDS: ASPIRIN 325 MG TABLET PO SCH (08:29)
[2022-03-06] MEDS: GABAPENTIN 300 MG CAPSULE PO SCH ×3 (08:29→17:07)
[2022-03-06] MEDS: FAMOTIDINE (20 MG) 20 MG TABLET PO SCH (08:30)
[2022-03-06] MEDS: METOPROLOL SUCCINATE 50 MG TAB.SR.24H PO SCH (08:31)
[2022-03-06] MEDS: CLONIDINE HCL 0.1 MG TABLET PO SCH ×3 (08:31→17:06)
[2022-03-06] MEDS: DAKINS QUARTER STRENGTH (0.125%) 480 ML BOTTLE TOP SCH (08:31)
[2022-03-06] MEDS: CLOTRIMAZOLE 1% 15 GM TUBE TP SCH ×2 (08:32→17:04)
[2022-03-06] MEDS: Z GUARD REMEDY 4 OZ OINT TP SCH (08:32)
[2022-03-06] MEDS: hydrALAZINE HCL 50 MG TABLET PO SCH ×3 (08:33→17:05)
[2022-03-06] MEDS: DOCUSATE SODIUM 100 MG CAPSULE PO SCH (08:36)
--- NOTE | 2022-03-06 10:00 | NUR ---
RN NOTES PT C/O RIGHT KNEE PAIN, 8/10 SCALE. PRN DILAUDID 1 GM IVP ADMINISTERED AT 0956. WILL CONTINUE TO MONITOR AND REASSESS PT.
[2022-03-06] MEDS: ATORVASTATIN 10 MG TABLET PO SCH (17:10)
--- NOTE | 2022-03-06 18:00 | NUR ---
RN NOTES PT REFUSED METHADONE 5MG PO SCHEDULED AT 1800.
--- NOTE | 2022-03-06 18:35 | NUR ---
MS RN CLOSING NOTES PATIENT IN BED WATCHING TV AT THIS TIME. A/O x4, SAME ABLE TO MAKE NEEDS KNOWN. ON ROOM AIR, TOLERATING WELL WITH NO S/S OF ACUTE RESPIRATORY DISTRESS NOTED. AMOR PICC LINE INTACT, PATENT, FLUSHES WELL WITH DRESSING C/D/I. HENDERSON CATHETER IN PLACE, DRAINING CLEAR YELLOW URINE VIA GRAVITY, HENDERSON CARE DONE. WOUND VAC ON R KNEE IN PLACE AT 125MMHG PRESSURE CONTINUOUS DRAINING LIGHT BROWNISH TO YELLOWISH DRAINAGE. ALL NEEDS AND CARE ATTENDED WELL. SAFETY MEASURES KEPT IN PLACE: BED LOCKED AND IN LOWEST POSITION, SIDE RAILS UP x2, TRAY TABLE AND CALL LIGHT WITHIN EASY REACH OF PT. WILL ENDORSE MARC TO CONCRETE VAULT MAKER NURSE.
--- NOTE | 2022-03-06 19:40 | NUR ---
MS RN OPENING NOTES RECEIVED PATIENT RESTING IN BED; AWAKE, ALERT AND ORIENTED X4. BREATHING EVEN AND NONLABORED. NOT IN ANY FORM OF RESPIRATORY DISTRESS. ON ROOM AIR, TOLERATING WELL. WITH IV ACCESS ON RIGHT UPPER ARM; PICC LINE; INTACT, PATENT AND FLUSHES WELL. WITH HENDERSON CATHETER ATTACHED TO UROBAG VIA GRAVITY DRAINING TO CLEAR YELLOW URINE. WITH WOUND VAC ON RIGHT KNEE; VAC FUNCTIONING WELL WITH SEROSANGUINEOUS OUTPUT. SAFETY MEASURES IMPLEMENTED: HEAD OF BED ELEVATED, CALL LIGHT AND TABLE WITHIN REACH, SIDE RAILS UP X2, BED IN LOWEST LOCKED POSITION. WILL CONTINUE TO MONITOR.
[2022-03-06 20:08] VITALS: BP 132/67
[2022-03-06 20:10] VITALS: BP 132/67
[2022-03-06] MEDS: DRONABINOL (2.5 MG) 2.5 MG CAPSULE PO SCH (22:24)
[2022-03-07] MEDS: ZOSYN IVPB 3.375 G in IV D5W 50ml IV SCH ×5 (00:39→23:41)
[2022-03-07] MEDS: HYDROMORPHONE 1 MG/1 ML DISP.SYRIN IV PRN ×5 (00:53→19:36)
[2022-03-07] MEDS: oxyCODONE IR immediate release 5 MG PO PRN ×7 (04:56→23:41)
[2022-03-07] MEDS: METHADONE HCL 10 MG TABLET PO SCH ×2 (06:40→17:56)
--- NOTE | 2022-03-07 06:53 | NUR ---
MS RN CLOSING NOTE PATIENT RESTING IN BED; AWAKE, A/O X4. BREATHING EVENLY AND UNLABORED. IN NO ACUTE DISTRESS NOTED. STABLE ON ROOM AIR. WITH IV ACCESS ON RIGHT UPPER ARM; PICC LINE; INTACT AND PATENT. WITH HENDERSON CATHETER ATTACHED TO UROBAG DRAINING TO CLEAR YELLOW URINE. WITH WOUND VAC ON RIGHT KNEE; FUNCTIONING WELL WITH SEROSANGUINEOUS OUTPUT. ALL DUE MEDS GIVEN ORDERED. SAFETY MEASURES IN PLACE: HEAD OF BED ELEVATED, CALL LIGHT AND TABLE WITHIN EASY REACH, SIDE RAILS UP X2, BED IN LOWEST LOCKED POSITION. ENDORSED TO MORNING SHIFT FOR MARC.
--- NOTE | 2022-03-07 07:30 | NUR ---
MS RN OPENING NOTES RECEIVED PATIENT AWAKE ON BED AND A/O X4. ON ROOM AIR TOLERATING WELL. NO SOB NOTED. NOT IN DISTRESS. WITH COMPLAINTS OF PAIN AT THE RIGHT KNEE AT THE SCALE OF 7/10. COMFORT MEASURES PROVIDED. WITH WOUND VAC ON RIGHT KNEE; VAC FUNCTIONING WELL WITH SEROSANGUINEOUS OUTPUT. WITH HENDERSON CATHETER IN PLACED DRAINING CLEAR YELLOW URINE. SAFETY MEASURES IN PLACED, CALL LIGHT AND TABLE WITHIN REACH, SIDE RAILS UP X2, BED IN LOWEST LOCKED POSITION. WILL CONTINUE TO MONITOR.
--- NOTE | 2022-03-07 08:38 | NUR ---
WOUND CARE CONSULT: PT SEEN FOR DRESSING CHANGE ON RT KNEE. WOUND MEASURES 9CM X 8CM X 2.3CM AND HAS RED GRANULATION TISSUE (SOME HYPERGRANULATION NOTED) AND SMALL AREA OF YELLOW SLOUGH. DISCUSSED WITH PLASTIC SURGERY P.A. RECOMMEND DEBRIDEMENT/CHEMICAL CAUTERY. VAC HELD JUST FOR TODAY. WOUND DRESSED WITH DAKINS MOISTENED KERLIX, COVERED WITH ABD PAD AND SECURED WITH PAPER TAPE. DISCUSSED SKIN PROTECTION AND WOUND CARE WITH NURSING STAFF. VAC CANISTER DISCARDED WITH 400cc PINK DRAINAGE. IN AGREEMENT WITH PLAN OF CARE.
[2022-03-07] MEDS: DOCUSATE SODIUM 100 MG CAPSULE PO SCH (09:00)
[2022-03-07] MEDS: GABAPENTIN 300 MG CAPSULE PO SCH ×3 (09:36→17:55)
[2022-03-07] MEDS: FAMOTIDINE (20 MG) 20 MG TABLET PO SCH (09:36)
[2022-03-07] MEDS: METOPROLOL SUCCINATE 50 MG TAB.SR.24H PO SCH (09:36)
[2022-03-07] MEDS: hydrALAZINE HCL 50 MG TABLET PO SCH ×3 (09:36→17:57)
[2022-03-07] MEDS: ASPIRIN 325 MG TABLET PO SCH (09:36)
[2022-03-07] MEDS: CLONIDINE HCL 0.1 MG TABLET PO SCH ×3 (09:37→17:55)
[2022-03-07] MEDS: Z GUARD REMEDY 4 OZ OINT TP SCH (09:37)
[2022-03-07] MEDS: DAKINS QUARTER STRENGTH (0.125%) 480 ML BOTTLE TOP SCH (09:38)
[2022-03-07] MEDS: CLOTRIMAZOLE 1% 15 GM TUBE TP SCH ×2 (09:38→17:56)
[2022-03-07] MEDS: ATORVASTATIN 10 MG TABLET PO SCH (17:55)
--- NOTE | 2022-03-07 19:00 | NUR ---
MS RN CLOSING NOTES PATIENT AWAKE ON BED AND A/O X4. ON ROOM AIR TOLERATING WELL. NO SOB NOTED. NOT IN DISTRESS. WITH COMPLAINTS OF PAIN AT THE RIGHT KNEE AT THE SCALE OF 5/10. COMFORT MEASURES PROVIDED. WITH HENDERSON CATHETER IN PLACED DRAINING CLEAR YELLOW URINE. DUE MEDS GIVEN. SAFETY MEASURES IN PLACED, CALL LIGHT AND TABLE WITHIN REACH, SIDE RAILS UP X2, BED IN LOWEST LOCKED POSITION. WILL ENDORSE TO NEXT SHIFT FOR MARC.
--- NOTE | 2022-03-07 19:10 | NUR ---
MS RN OPENING NOTES: RECEIVED PATIENT IN BED, AWAKE, A/O X4. WATCHING ON HER PHONE. NO S/S OF DISTRESS NOTED. NO COMPLAIN OF PAIN. CALL LIGHT WITHIN REACH. BED IN LOWEST AND LOCKED POSITION.
[2022-03-07 20:35] VITALS: BP 122/70
--- NOTE | 2022-03-07 22:51 | NUR ---
PATIENT ASLEEP AT THIS TIME, BREATHING EVENLY.
[2022-03-07] MEDS: DRONABINOL (2.5 MG) 2.5 MG CAPSULE PO SCH (23:41)
[2022-03-08] MEDS: HYDROMORPHONE 1 MG/1 ML DISP.SYRIN IV PRN ×3 (00:36→09:03)
--- NOTE | 2022-03-08 01:22 | NUR ---
patient asleep at this time, breathing good.
[2022-03-08] MEDS: oxyCODONE IR immediate release 5 MG PO PRN ×4 (03:53→13:29)
[2022-03-08] MEDS: ZOSYN IVPB 3.375 G in IV D5W 50ml IV SCH (05:14)
[2022-03-08] MEDS: METHADONE HCL 10 MG TABLET PO SCH (06:00)
--- NOTE | 2022-03-08 06:54 | NUR ---
PATIENT REFUSED THE COVID RAPID TESTING, CHARGE NURSE MADE AWARE.
--- NOTE | 2022-03-08 07:30 | NUR ---
MS RN OPENING NOTES RECEIVED PATIENT AWAKE ON BED AND A/O X4. ROOM AIR . NO SOB OR DISTRESS NOTED . NO C/O PAIN AND DISCOMFORT AT THIS TIME , RIGHT KNEE WITH DRESSING INTACT , WITH HENDERSON CATHETER IN PLACED DRAINING CLEAR YELLOW URINE. SAFETY MEASURES IN PLACED, CALL LIGHT AND TABLE WITHIN REACH, SIDE RAILS UP X2, BED IN LOWEST LOCKED POSITION. WILL CONTINUE TO MONITOR.
[2022-03-08] MEDS: Z GUARD REMEDY 4 OZ OINT TP SCH (09:00)
--- NOTE | 2022-03-08 09:12 | NUR ---
WOUND CARE FOLLOW UP: PT SEEN FOR DRESSING CHANGE. WOUND CLEANSED WITH DAKINS, THEN PACKED GENTLY WITH DAKINS MOISTENED KERLIX, COVERED WITH ABD PAD AND SECURED WITH KERLIX AND BURN NET. DISCUSSED WITH SURGICAL TEAM. IN AGREEMENT WITH PLAN OF CARE. Addendum: 03/08/22 at 1046 by CHASE FRANZ WNDNU WOUND VAC WAS DISCONTINUED TODAY.
[2022-03-08] MEDS: ASPIRIN 325 MG TABLET PO SCH (09:52)
[2022-03-08] MEDS: DOCUSATE SODIUM 100 MG CAPSULE PO SCH (09:53)
[2022-03-08] MEDS: FAMOTIDINE (20 MG) 20 MG TABLET PO SCH (09:53)
[2022-03-08] MEDS: CLONIDINE HCL 0.1 MG TABLET PO SCH ×2 (09:53→13:12)
[2022-03-08] MEDS: GABAPENTIN 300 MG CAPSULE PO SCH ×2 (09:53→13:12)
[2022-03-08] MEDS: METOPROLOL SUCCINATE 50 MG TAB.SR.24H PO SCH (09:54)
[2022-03-08] MEDS: hydrALAZINE HCL 50 MG TABLET PO SCH ×2 (09:55→13:13)
[2022-03-08] MEDS: DAKINS QUARTER STRENGTH (0.125%) 480 ML BOTTLE TOP SCH (10:26)
[2022-03-08] MEDS: CLOTRIMAZOLE 1% 15 GM TUBE TP SCH (10:30)
[2022-03-08 13:13] VITALS: BP 151/88
--- NOTE | 2022-03-08 13:30 | NUR ---
RN NOTES REPORT GIVEN TO [facility] AND SPOKE WITH KEVIN MCKEON
--- NOTE | 2022-03-08 16:57 | NUR ---
MAT ROLLER NOTES PATIENT WAS SEEN BY MD AND MEDICALLY CLEARED FOR DISCHARGE TO SNF: [facility] ,ALL DUE MEDS GIVEN , C/O OF PAIN AND DISCOMFORT AND DUE PAIN MEDS ORDERED . WOUND DRESSING ON THE RIGHT KNEE DONE BY WOUND NURSE , KEPT DRY AND CLEAN , HENDERSON CATHETER CONTINUE UPON DISCHARGE WITH OUTPUT OF 650 CC , BM NOTED X 1 . AMOR PICCLINE INTACT AND CONT UPON DISCHARGE , ALL DISCHARGE PAPERS WERE PREPARED AND DISCHARGE INSTRUCTIONS DISCUSSED TO THE PATIENT, ALL BELONGINGS AND VALUABLE WAS SENT TO PATIENT AND SIGNED D/C BELONGINGS FORM , REPORT PROVIDED TO SNF AND SPOKE WITH KEVIN - LINDA . PATIENT WAS PICKED UP BY AMBULANCE VIA GURNEY AND PT D/C IN A STABLE CONDITION
== END 2022-03-08 17:57 | DRG 313 ==
LOC: MED 07:44
PROVIDERS: ADMIT Internal Medicine; ATTEND Internal Medicine
PROC: 0SPC0JZ Removal of Synthetic Substitute from Right Knee Joint, Open Approach (ICD-10-PCS; principal; 2022-01-25)
PROC: 0SHC08Z Insertion of Spacer into Right Knee Joint, Open Approach (ICD-10-PCS; 2022-01-25)
PROC: 0SBC0ZZ Excision of Right Knee Joint, Open Approach (ICD-10-PCS; 2022-01-25)
PROC: 02HV33Z Insertion of Infusion Device into Superior Vena Cava, Percutaneous Approach (ICD-10-PCS; 2022-01-26)
PROC: B548ZZA Ultrasonography of Superior Vena Cava, Guidance (ICD-10-PCS; 2022-01-26)
PROC: 30233N1 Transfusion of Nonautologous Red Blood Cells into Peripheral Vein, Percutaneous Approach (ICD-10-PCS; 2022-01-28)
PROC: 02HV33Z Insertion of Infusion Device into Superior Vena Cava, Percutaneous Approach (ICD-10-PCS; 2022-02-08)
PROC: B548ZZA Ultrasonography of Superior Vena Cava, Guidance (ICD-10-PCS; 2022-02-08)
PROC: 0QBF0ZZ Excision of Left Patella, Open Approach (ICD-10-PCS; 2022-02-18)
PROC: 0KBS0ZZ Excision of Right Lower Leg Muscle, Open Approach (ICD-10-PCS; 2022-03-07)
DX: T84.53XA Infection and inflammatory reaction due to internal right knee prosthesis, initial encounter (principal); N17.0 Acute kidney failure with tubular necrosis; E44.0 Moderate protein-calorie malnutrition; M00.9 Pyogenic arthritis, unspecified; D63.8 Anemia in other chronic diseases classified elsewhere; E88.09 Other disorders of plasma-protein metabolism, not elsewhere classified; D68.59 Other primary thrombophilia; Z68.43 Body mass index [BMI] 50.0-59.9, adult; L02.415 Cutaneous abscess of right lower limb; L97.819 Non-pressure chronic ulcer of other part of right lower leg with unspecified severity; I50.32 Chronic diastolic (congestive) heart failure; I11.0 Hypertensive heart disease with heart failure; Y83.8 Other surgical procedures as the cause of abnormal reaction of the patient, or of later complication, without mention of misadventure at the time of the procedure; Y92.89 Other specified places as the place of occurrence of the external cause; E66.01 Morbid (severe) obesity due to excess calories; D50.9 Iron deficiency anemia, unspecified; Z20.822 Contact with and (suspected) exposure to COVID-19; E78.5 Hyperlipidemia, unspecified; K21.9 Gastro-esophageal reflux disease without esophagitis; G89.29 Other chronic pain; E87.6 Hypokalemia; Z95.810 Presence of automatic (implantable) cardiac defibrillator; Z96.651 Presence of right artificial knee joint; Z87.891 Personal history of nicotine dependence; B96.20 Unspecified Escherichia coli [E. coli] as the cause of diseases classified elsewhere; M65.9 Synovitis and tenosynovitis, unspecified; F12.90 Cannabis use, unspecified, uncomplicated; Z74.09 Other reduced mobility; Z79.899 Other long term (current) drug therapy; B95.2 Enterococcus as the cause of diseases classified elsewhere
CPT/HCPCS: 36415; 36569; 71045-TC; 73564-TC; 80048-TC; 80053-TC; 80202-TC; 82728-TC; 83540-TC; 83735-TC; 84100-TC; 85025-TC; 85652-TC; 86140-TC; 86803; 86850-TC; 87040-TC; 87070-TC; 87081-TC; 87186-TC; 87806; 93971-TC; 97110-TC; 97530-TC; A4217; A6253; A6403; C1713; G0378; J0330; J0360; J0690; J0692; J1100; J1170; J2270; J2405; J2543; J2704; J2916; J3010; J3370; J3475; J3480; J3490; J7030; J7040; J7050; J7060; L1830; P9016; Q0167; U0003